=== PATIENT | female | born 1955 | race Caucasian/White ===

== ENCOUNTER → 2017-12-03 14:47 | Outpatient (CLI) | payer MEDICARE, SELFPAY ==
--- NOTE | 2017-12-03 15:09 | CT_ITS ---
STUDY: CT ABDOMEN AND PELVIS WITH CONTRAST REASON FOR EXAM: Female, 62 years old. Abdominal pain, stone versus diverticulitis RADIATION DOSAGE (If Supplied By Facility): CTDIvol = ( 15.90 ) mGy, DLP = ( 1139.75 ) mGycm TECHNIQUE: Transaxial images were obtained from the dome of the diaphragm to the symphysis pubis without oral contrast. 100 ml of Isovue 300 contrast was administered. Sagittal and coronal images were reconstructed. Individualized dose optimization techniques were used for this CT. COMPARISON: None. FINDINGS: The visualized lung bases are unremarkable. The visualized portions of the heart are within normal limits. 1.4 cm posterior right hepatic nodule in the liver. Normal gallbladder and extrahepatic biliary system. Normal spleen. Normal pancreas. Normal bilateral adrenal glands. Normal right kidney. Normal left kidney. Normal visualized stomach. Normal small intestine. Normal colon. The appendix is visualized and appears normal. Calcified abdominal aorta. Normal inferior vena cava. Normal retroperitoneum. Up to 1 cm right iliac node. Normal urinary bladder. Normal abdominal wall. Normal osseous structures. CT/Abdomen/Pelvis WITH Contrast IMPRESSION: Up to 1 cm right iliac node. Hepatic nodule posteriorly. Correlate with ultrasound if needed. Electronically Signed: Winston Clark DO at 18:26 EDT Tel [phone], Service support ,
[2017-12-03 15:32] LABS: AST(SGOT) 16 U/L (15-37); Alanine Aminotransfer ALT/SGPT 27 U/L (13-56); Albumin, Serum 3.6 g/dL (3.2-5.0); Alkaline Phosphatase 151 U/L (45-117); Anion Gap 2 (5-15); BUN 11 mg/dL (7-18); BUN/Creat Ratio 15.2 RATIO (10-20); Calcium,Total 8.9 mg/dL (8.5-10.1); Chloride 104 mmol/L (98-107); Creatinine, Serum 0.72 mg/dL (0.55-1.02); EST Glomerular Filtration Rate 87 mL/min (>60); Est Glom Filt Rate - Afr Amer 105 mL/min (>60); Globulin 3.7 g/dL (2.2-4.2); Glucose 194 mg/dL (74-106); Potassium 4.1 mmol/L (3.5-5.1); Protein, Total 7.3 g/dL (6.4-8.2); Sodium Level 138 mmol/L (136-145)
== END ==
PROVIDERS: Family Provider Internal Medicine; PCP Internal Medicine; Visit Provider Nurse Practitioner Gerontology
DX: R94.31 Abnormal electrocardiogram [ECG] [EKG] (principal)
CPT/HCPCS: 36415; 74177; 80053; Q9967

== ENCOUNTER → 2017-12-07 08:42 | Outpatient (CLI) | payer MEDICARE, SELFPAY ==
--- NOTE | 2017-12-07 08:49 | US_ITS ---
STUDY: ABDOMINAL ULTRASOUND - RIGHT UPPER QUADRANT REASON FOR VISIT: Female, [address] scan. TECHNIQUE: Ultrasound evaluation of the right upper quadrant was performed with real-time and static gupta-scale imaging. TECHNICAL QUALITY: Adequate. COMPARISON: Comparison is made with prior CT scan and abdomen dated December 03, 2017 and prior ultrasound of the abdomen dated September 27, 2012. FINDINGS: Liver: The liver measures 16.6 cm. There is increased echogenicity consistent with fatty infiltration. The bile ducts are within normal limits. There is hepatic color flow. The direction of portal flow is hepatopetal. There is no demonstrated mass lesion. The abnormalities seen on the CT scan is not visualized on the ultrasound. Gallbladder: Normal distended gallbladder. The gallbladder wall measures 1.5 mm. There is a negative sonographic Bourne's sign. There is no pericholecystic fluid. There are no gallstones. Common Bile Duct (C.B.D.): The common bile duct measures 2.8 mm. Pancreas: Normal size of the head, body and tail of the pancreas. There is normal echogenicity of the pancreas. There is no demonstrated pancreatic mass or cyst. Right Kidney: Normal size of the right kidney. The right kidney measures 10.8 cm x 4.5 cm x 4.6 cm. Normal renal cortex. The right cortex measures 1.9 cm. There is no demonstrated renal mass or cyst. Fullness of the right renal pelvis. US/Abdomen Limited IMPRESSION: Fatty infiltration of the liver. No nodular density is seen. Electronically Signed: David Stinson MD at 20:29 EDT Tel [phone], Service support ,
--- NOTE | 2017-12-07 10:17 | ECHOD_ITS ---
Reason For Study: Acute EKG changes Procedure This was a 2D Doppler, Color Flow transthoracic echocardiogram. Exam performed in department. Left Ventricle Normal LV size. Left ventricular systolic function is normal. The estimated ejection fraction is 65 %. Transmitral diastolic flow velocities suggest mild (stage 1) diastolic dysfunction (reversed pattern). No regional wall motion abnormalities noted. Right Ventricle Normal RV size. Normal systolic function. Atria Normal left atrium. Normal right atrium. Bubble contrast study negative for right to left interatrial shunt. Mitral Valve Normal mitral valve. Tricuspid Valve Normal tricuspid valve. Aortic Valve Normal aortic valve. Trisinus/trileaflet aortic valve. Pulmonic Valve Normal pulmonic valve. Great Vessels Normal aortic root. The pulmonary artery is normal size. Normal inferior vena cava. Pericardium/Pleural No pericardial effusion. Medication Performed a rapid injection of agitated mix of 9 cc saline and 1cc air to assess for atrial septal defect. MMode/2D Measurements & Calculations LVIDd: 4.5 cm IVSd: 0.97 cm Ao root diam: 2.5 cm LVIDs: 2.7 cm LVPWd: 0.79 cm LA dimension: 3.7 cm RVDd: 2.5 cm FS: 39.6 % LAV(MOD-bp): 34.7 ml LAV(MOD-bp) Indexed: 18.3 ml/m2 LA A4 area: 14.7 cm2 RA A4 area: 9.6 cm2 LAV(MOD-sp2): 36.8 ml LAV(MOD-sp4): 32.3 ml Doppler Measurements & Calculations MV E max jorge: 76.1 cm/sec Lat Peak E' Jorge: 7.2 cm/sec Med Peak E' Jorge: 5.9 cm/sec MV A max jorge: 123.0 cm/sec E/E' lat: 10.5 E/E' med: 12.8 MV E/A: 0.62 Ao V2 max: 163.7 cm/sec LV V1 max: 136.7 cm/sec PA V2 max: 152.0 cm/sec Ao max P.7 mmHg LV V1 max P.5 mmHg Ao V2 mean: 112.1 cm/sec Ao mean P.5 mmHg Ao V2 VTI: 28.3 cm Interpretation Summary Normal LV size. Left ventricular systolic function is normal. The estimated ejection fraction is 65 %. Transmitral diastolic flow velocities suggest mild (stage 1) diastolic dysfunction (reversed pattern). Bubble contrast study negative for right to left interatrial shunt. Ordering Physician: SANDOR Ward Referring Physician: Aida Nolan Performed By: Soraya Edgar, CESAR, RVT
== END ==
PROVIDERS: Family Provider Internal Medicine; PCP Internal Medicine; Visit Provider Nurse Practitioner Gerontology
DX: R94.31 Abnormal electrocardiogram [ECG] [EKG] (principal); K76.89 Other specified diseases of liver
CPT/HCPCS: 76705; 93306; A4216

== ENCOUNTER → 2018-01-21 09:08 | Outpatient (CLI) | payer MEDICARE, SELFPAY ==
--- NOTE | 2018-01-21 09:11 | NM_ITS ---
CLINICAL: 62-year-old female with reported history of right upper quadrant abdominal pain. RADIONUCLIDE HEPATOBILIARY SCINTIGRAPHY COMPARISON: Abdominal ultrasound report 12/07/2017, CT of the abdomen-pelvis report 12/03/2017 FINDINGS: Following the intravenous administration of 5.1 mCi of 99m Tc Mebrofenin, hepatobiliary images reveal: 1. Relatively prompt and homogeneous radiopharmaceutical concentration is noted by a normal sized liver. No parenchymal defects are identified. 2. Gallbladder activity is identified at 30 minutes post radiopharmaceutical administration. 3. Intestinal tract is not visualized during 60 minutes of sequential image acquisition. Small bowel is defined following the administration of the fatty meal. 4. Washout of the radiopharmaceutical by the hepatic parenchyma appears qualitatively normal. The patient was administered a fatty meal (8 ounces Boost). The post fatty meal ingestion gallbladder ejection fraction calculated at 29 minutes was noted to be 40.0 % (normal greater than 30%). NM/Hepatobilliary Img w/Pharm Int IMPRESSION: 1. NORMAL 99m Tc Mebrofenin hepatobiliary imaging examination with fatty meal ingestion. A. A gallbladder ejection fraction calculated to be greater than 30% following the administration of an ingested fatty meal makes the probability of functional hepatobiliary disease (gallbladder and/or sphincter of Oddi dyskinesia) and/or organic hepatobiliary disease (chronic acalculous cholecystitis and/or cystic duct syndrome) to be low. (Sara and Gregg, J Nucl Med 43: 1603, 2002). Electronically Signed: Levy Ortega DO at 9:59 EDT Tel , Service support ,
== END ==
PROVIDERS: Family Provider Internal Medicine; PCP Internal Medicine; Visit Provider Surgery
DX: R10.11 Right upper quadrant pain (principal)
CPT/HCPCS: 78227; A9537

== ENCOUNTER 2018-01-23 07:17 | Day surgery (SDC) | payer MEDICARE, SELFPAY ==
[2018-01-23] VITALS (7 sets, daily range): BP systolic 88–119; BP diastolic 47–58; PULSE 62–66; RESP 16–18; TEMP 36.3–37.6; O2SAT 94–97; BMI 35.2
[2018-01-23 07:50] LABS: Bedside Glucose 289 mg/dL (70-110)
--- NOTE | 2018-01-23 08:47 | PCM.OPRPT ---
Problem List (1) Right upper quadrant pain Status: Acute (2) Dysphagia, unspecified Status: Acute Qualifiers: Dysphagia type: unspecified Qualified Code(s): R13.10 - Dysphagia, unspecified Report of Operation Date of Procedure: 01/23/18 Pre-Operative Diagnosis: r10.11 right upper quadrant abdominal pain. r13.10 dysphasia unspecified Post-Operative Diagnosis: Same Surgery/Procedure Performed:: 66610 esophagogastroduodenoscopy with biopsy Type of Anesthesia:: MAC Anesthesiologist: Avtar Lacey Description of Procedure: Patient was brought into the endoscopy suite. Back of her throat was sprayed with Cetacaine spray. A bite-block was placed. She was placed in the left lateral decubitus position. She was given graded anesthesia. Scope was inserted in the back of the oropharynx and directed down through the esophagus into the stomach and into the duodenum without difficulty. Operative findings: 1. Duodenum: Normal appearance no mass lesions no ulcerations no signs of bleeding no erythema. 2. Stomach: Minimal prepyloric irritation was identified no ulcers no mass lesions biopsy for H. pylori was obtained. Retroflexion did not show any signs of hiatal hernia. 3. Esophagus: Z line was at 37-38 cm it looked like she had previous signs of esophagitis but nothing that looked active at this time. There is no erythema there was no mass lesions there is no signs of any bleeding. Scope was withdrawn. The rest of the esophagus was entirely normal. She tolerated the procedure well. - Admit VTE Documentation VTE Present on Admission: No VTE Mechan Device Prophylaxis: None VTE Pharm Prophylaxis ordered?: No Reason prophylaxis not ordered:: Treatment Not Indicated
== END 2018-01-23 09:37 | disposition home or self-care (01) ==
LOC: EN 07:17 → AC 07:18
PROVIDERS: Family Provider Internal Medicine; PCP Internal Medicine; Visit Provider Surgery
PROC: 0DJ08ZZ Inspection of Upper Intestinal Tract, Via Natural or Artificial Opening Endoscopic (ICD-10-PCS; CPT 43235; principal; 2018-01-23 08:55)
DX: Z79.4 Long term (current) use of insulin (principal); Z79.82 Long term (current) use of aspirin; Z79.899 Other long term (current) drug therapy; M79.7 Fibromyalgia; L40.50 Arthropathic psoriasis, unspecified; E11.9 Type 2 diabetes mellitus without complications; I10 Essential (primary) hypertension; I25.119 Atherosclerotic heart disease of native coronary artery with unspecified angina pectoris; E78.5 Hyperlipidemia, unspecified; F32.9 Major depressive disorder, single episode, unspecified; Z87.891 Personal history of nicotine dependence
CPT/HCPCS: 43239; 82962; J7120

== ENCOUNTER → 2018-04-18 10:47 | Outpatient (CLI) | payer MEDICARE, SELFPAY | PROVIDERS: Family Provider Internal Medicine; PCP Internal Medicine; Visit Provider Internal Medicine | DX: R51 Headache (principal); H53.9 Unspecified visual disturbance; M54.12 Radiculopathy, cervical region | CPT/HCPCS: 70544; 70553; 72040; A9585 ==

== ENCOUNTER → 2018-04-25 10:22 | Outpatient (CLI) | payer MEDICARE, SELFPAY | LOC: OPBI 10:22 | PROVIDERS: Family Provider Internal Medicine; PCP Internal Medicine; Visit Provider Internal Medicine | DX: R22.2 Localized swelling, mass and lump, trunk (principal); Z12.31 Encounter for screening mammogram for malignant neoplasm of breast | CPT/HCPCS: 71260; 77063; 77067; Q9967 ==

== ENCOUNTER → 2018-05-10 13:41 | Outpatient (CLI) | payer MEDICARE, SELFPAY | LOC: RAD 13:46 | PROVIDERS: Family Provider Internal Medicine; PCP Internal Medicine; Visit Provider Internal Medicine Medical Oncology | DX: D72.829 Elevated white blood cell count, unspecified (principal) | CPT/HCPCS: 77075 ==

== ENCOUNTER → 2018-06-13 13:35 | Outpatient (CLI) | payer MEDICARE, SELFPAY ==
--- NOTE | 2018-06-13 13:40 | CDU_ITS ---
Reason For Study: Vertigo Rt. Velocities/BP Lt. Velocities/BP Prox CCA 116/19.6 cm/sec. Prox CCA 90.9/10.6 cm/sec. Mid CCA 88.8/24.4 cm/sec. Mid CCA 94.4/22.9 cm/sec. Dist CCA 88.8/23.6 cm/sec. Dist CCA 97.9/23.5 cm/sec. Prox ICA 80.3/21.1 cm/sec. Prox ICA 109/28.5 cm/sec. Mid ICA 112/35.4 cm/sec. Mid ICA 108/26.5 cm/sec. Dist ICA 93.5/22.8 cm/sec. Dist ICA 123/30.4 cm/sec. Rt. ICA/CCA = 1.26. Lt. ICA/CCA = 1.30. Prox ECA 133/17.3 cm/sec. Prox ECA 164/14.7 cm/sec. Rt. Vert. 81.5/12.9 cm/sec. Lt. Vert. 82.1/16.4 cm/sec. Right Extracranial There is intimal thickening but no significant atherosclerotic plaque noted in the right common carotid artery. There is heterogeneous, irregular atherosclerotic plaque noted in the right internal carotid artery. There is no significant atherosclerotic plaque noted in the right external carotid artery. Antegrade flow is noted in the right vertebral artery. Left Extracranial There is intimal thickening but no significant atherosclerotic plaque noted in the left common carotid artery. There is heterogeneous, irregular atherosclerotic plaque noted in the left internal carotid artery. There is no significant atherosclerotic plaque noted in the left external carotid artery. Antegrade flow is noted in the left vertebral artery. Procedure Carotid Duplex [id number]. Exam performed in department. Interpretation Summary Mild (<50%) stenosis right extracranial internal carotid. Mild (<50%) stenosis left extracranial internal carotid. Flow within the vertebral arteries is antegrade bilaterally. Ordering Physician: Lucien Isbell Referring Physician: Aida Nolan M.D. Performed By: Lg Larson RVT and Student
== END ==
PROVIDERS: Family Provider Internal Medicine; PCP Internal Medicine; Referring Provider Psychiatry & Neurology Neurology; Visit Provider Psychiatry & Neurology Neurology
DX: R42 Dizziness and giddiness (principal)
CPT/HCPCS: 93880

== ENCOUNTER → 2018-09-26 13:37 | Outpatient (CLI) | payer MEDICARE, SELFPAY ==
[2018-09-12 12:04] VITALS: BMI 35.8
--- NOTE | 2018-09-26 13:49 | CT_ITS ---
STUDY: CT ABDOMEN AND PELVIS WITH CONTRAST REASON FOR EXAM: Female, 63 years old. Generalized abdominal pain. Diverticulitis. RADIATION DOSAGE (If Supplied By Facility): CTDIvol = ( 16.60 ) mGy, DLP = ( 1055.76 ) mGycm TECHNIQUE: Transaxial images were obtained from the dome of the diaphragm to the symphysis pubis with oral contrast. 100 ml of Isovue 300 contrast was administered. Sagittal and coronal images were reconstructed. Individualized dose optimization techniques were used for this CT. COMPARISON: Comparison is made with prior study dated December 03, 2017. FINDINGS: The visualized lung bases are unremarkable. The visualized portions of the heart are within normal limits. There is decreased attenuation of the liver consistent with steatosis. Stable 1.4 cm hypoechoic nodule along the posterior medial aspect of the right lobe of the liver. This most likely represents a small hemangioma. Normal gallbladder and extrahepatic biliary system. Normal spleen. Normal pancreas. Normal bilateral adrenal glands. Normal right kidney. Normal left kidney. Normal visualized stomach. Normal small intestine. Normal colon. The appendix is visualized and appears normal. There is scattered atherosclerotic calcification of the abdominal aorta, without a demonstrated aneurysm. Normal inferior vena cava. There is borderline retroperitoneal lymphadenopathy with enlarged nodes no greater than 10mm in the short axis diameter. There is evidence of a cystocele. There is absence of the uterus consistent with a prior hysterectomy. Normal abdominal wall. Mild dextroscoliosis. CT/Abdomen/Pelvis WITH Contrast IMPRESSION: Fatty in position of the liver. Stable 1.4 cm hypodensity in the posterior medial aspect of the right lobe of the liver suggestive of a small hemangioma. Electronically Signed: David Stinson MD at 15:31 EST , Service support ,
[2018-09-26 14:10] LABS: ALB/GLOB Ratio 0.9 RATIO (0.9-2.4); AST(SGOT) 17 U/L (15-37); Alanine Aminotransfer ALT/SGPT 39 U/L (13-56); Albumin, Serum 3.4 g/dL (3.2-5.0); Alkaline Phosphatase 144 U/L (45-117); Anion Gap 8 (5-15); BUN 15 mg/dL (7-18); BUN/Creat Ratio 22.9 RATIO (10-20); Calcium,Total 8.6 mg/dL (8.5-10.1); Chloride 103 mmol/L (98-107); Creatinine, Serum 0.66 mg/dL (0.55-1.02); EST Glomerular Filtration Rate 97 mL/min (>60); Est Glom Filt Rate - Afr Amer 118 mL/min (>60); Globulin 3.9 g/dL (2.2-4.2); Glucose 269 mg/dL (74-106); Potassium 4.1 mmol/L (3.5-5.1); Protein, Total 7.3 g/dL (6.4-8.2); Sodium Level 134 mmol/L (136-145)
== END ==
PROVIDERS: Family Provider Internal Medicine; PCP Internal Medicine; Referring Provider Nurse Practitioner Gerontology; Visit Provider Nurse Practitioner Gerontology
DX: R10.84 Generalized abdominal pain (principal)
CPT/HCPCS: 36415; 74177; 80053; Q9967

== ENCOUNTER 2020-01-04 16:56 | Emergency (ER) | payer MEDICARE, SELFPAY ==
[2018-09-12 12:04] VITALS: BMI 35.8
[2020-01-04 16:57] VITALS: BP 187/95; PULSE 97; RESP 16; TEMP 36.7; BMI 35.1
--- NOTE | 2020-01-04 17:16 | ED.VISSUMM ---
- ER Visit Summary Date of Service: 01/04/20 Chief Complaint: [Left face and head pain] History of Present Illness: The patient is a 64 F [presents to the emergency department left face and head pain that started initially about 6 days ago. Pain initially started at the tip of her left ear kind of which shoot to the left scalp. Patient did a teleconference appointment with her primary care physician who started her on some Zithromax for suspected ear infection. Patient continues to complain of discomfort and was called in some prednisone as well. 3 days ago patient developed a rash to her scalp and left anterior neck. She is not had a fever. She denies any trauma to her face. She denies sore throat or cough.] Today patient states she started having a little bit of numbness to the left side of her face. Physical Examination: [HEENT-PERRLA, EOMI. Cranial nerves II through XII grossly intact. TMs clear. Mucous membranes moist. No adenopathy. Patient has several small vesicular-like lesions to her left scalp. Patient also has vesicular type lesions to the anterior submandibular region of her neck as well as supraclavicular region of her left neck. Rash is suspicious for herpes zoster. Cardiovascular-regular rate and rhythm without murmur or ectopy Lungs-clear to auscultation, chest wall stable without crepitus or subcu emphysema Abdomen-normoactive bowel sounds, soft, nontender, no rebound or rigidity, no peritoneal signs. Extremities-intact ?4, normal range of motion, normal pulses, atraumatic] Test Results: [None indicated] Emergency Department Course and Treatment: [] Treatment Plan: [We will be treated with either [place] or Percocet for pain as she is not sure which when she can tolerate she will speak with her daughter who would know. Patient also will be started on Famvir. She is to continue with her prednisone. Patient to follow-up with her primary care physician within the next 3 to 5 days.] Disposition: [Discharged home in stable condition] Impression: [Herpes zoster.] This note was generated with [employer] software. It may contain incorrect words, spelling, and punctuation that were not noted in review of the chart prior to signing ED Disposition - Plan for ED Patient: Referrals: Aida Nolan DO [Primary Care Provider] -
--- NOTE | 2020-01-04 17:19 | ED.DEP ---
ED Disposition - Plan for ED Patient: Instructions: ED Shingles Prescriptions: Famciclovir [Famvir] 500 mg PO TID #21 tab Prescription Printed Oxycodone HCl/Acetaminophen [Percocet 5/325] 1 tab PO Q6H PRN PRN 3 Days #12 tab PRN Reason: Pain Prescription Printed Referrals: Aida Nolan DO [Primary Care Provider] - 3-5 Days
== END 2020-01-04 17:37 | disposition home or self-care (01) ==
LOC: ED 17:09
PROVIDERS: Emergency Provider Emergency Medicine; PCP Internal Medicine
DX: B02.9 Zoster without complications (principal)
CPT/HCPCS: 99283

== ENCOUNTER → 2020-08-12 09:15 | Outpatient (CLI) | payer MEDICARE, SELFPAY ==
--- NOTE | 2020-08-12 09:16 | BI_ITS ---
MAMMOGRAPHY - BILATERAL SCREENING REASON FOR EXAM: Female, 65 years old. Routine annual screening examination. PERTINENT HISTORY: Sister with breast cancer. Occasional left breast and left axillary tenderness. TECHNIQUE: Digital bilateral breast cassius (3D mammographic acquisition) in the CC and MLO projections. 2-D mediolateral oblique (MLO) and craniocaudad (CC) views of both breasts were obtained. CAD: Full Field Digital Mammography with Computer Added Detection was performed. COMPARISON: Comparison is made with prior study dated 04/25/2018 and 02/08/2017. FINDINGS: Breast Composition: The breasts are heterogeneously dense, which may obscure small masses. There are no dominant masses or suspicious calcifications. Stable benign appearing bilateral axillary lymph nodes. No other significant abnormalities are identified. There has been no significant change since the prior study. BI/SCREEN MAMM (CAD) W/CASSIUS BILAT IMPRESSION: Stable bilateral screening mammogram. Yearly follow-up mammogram recommended. (A) ASSESSMENT CATEGORY: BIRADS Category 2: Benign. A letter regarding these results will be sent to the patient by the facility within 30 days. Approximately 10% of breast cancers are not detected by mammography. A normal mammogram should not delay biopsy of a clinically suspicious abnormality. [id number] Electronically Signed: David Stinson, at 10:02 EST , Service support ,
== END ==
PROVIDERS: PCP Internal Medicine; Referring Provider Internal Medicine; Visit Provider Internal Medicine
DX: Z12.31 Encounter for screening mammogram for malignant neoplasm of breast (principal)
CPT/HCPCS: 77063; 77067

== ENCOUNTER → 2020-09-10 09:29 | Outpatient (CLI) | payer MEDICARE, SELFPAY ==
--- NOTE | 2020-09-10 09:31 | US_ITS ---
STUDY: ABDOMINAL ULTRASOUND - RIGHT UPPER QUADRANT REASON FOR VISIT: Female, 65 years old RUQ PAIN -- NAUSEA TECHNIQUE: Ultrasound evaluation of the right upper quadrant was performed with real-time and static gupta-scale imaging. TECHNICAL QUALITY: Adequate. COMPARISON: Comparison is made with prior examination dated 12/07/2017. FINDINGS: Liver: The liver is slightly enlarged and measures 19 cm. There is increased echogenicity consistent with fatty infiltration. The bile ducts are within normal limits. There is hepatic color flow. The direction of portal flow is hepatopetal. There is no demonstrated mass lesion. Gallbladder: Normal distended gallbladder. The gallbladder wall measures 2.0 mm. There is a negative sonographic Bourne''s sign. There is no pericholecystic fluid. There are no gallstones. Common Bile Duct (C.B.D.): The common bile duct measures 5.0 mm. Pancreas: Normal size of the head, body and tail of the pancreas. There is increased echogenicity of the pancreas. There is no demonstrated pancreatic mass or cyst. Right Kidney: Normal size of the right kidney. The right kidney measures 10.8 cm x 5.4 cm x 4.3 cm. Normal renal cortex. The right cortex measures 1.3 cm. There is no demonstrated renal mass or cyst. There is no right hydronephrosis. US/Abdomen Limited IMPRESSION: Mild hepatomegaly and fatty infiltration of liver. Electronically Signed: David Stinson, at 10:54 EST , Service support ,
== END ==
PROVIDERS: PCP Internal Medicine; Referring Provider Internal Medicine; Visit Provider Internal Medicine
DX: R10.11 Right upper quadrant pain (principal)
CPT/HCPCS: 76705

== ENCOUNTER 2020-12-09 16:53 | Observation (INO) | payer MEDICARE, SELFPAY ==
[2020-12-09] VITALS (11 sets, daily range): BP systolic 149–220; BP diastolic 57–90; PULSE 69–105; RESP 16–20; TEMP 36.4–36.7; O2SAT 95–98; BMI 37.8; BMI 36.3
--- NOTE | 2020-12-09 17:09 | EKG12_ITS ---
Test Reason : CP Blood Pressure : / mmHG Vent. Rate : 098 BPM Atrial Rate : 098 BPM P-R Int : 158 ms QRS Dur : 082 ms QT Int : 350 ms P-R-T Axes : 057 -30 071 degrees QTc Int : 446 ms Normal sinus rhythm Left axis deviation Pulmonary disease pattern Nonspecific ST abnormality Abnormal ECG Confirmed by TROY RICHEY, MARCI ([id number]), story editor NATASHA PINEDA ([id number]) on 12/13/2020 2:19:16 PM Referred By: JAMEL/CLARI Confirmed By:MARCI SIMMONS MD
--- NOTE | 2020-12-09 17:22 | CT_ITS ---
STUDY: CTA CHEST REASON FOR EXAM: Female, 65 years old. Chest pain RADIATION DOSAGE (If Supplied By Facility): CTDIvol = ( 11.42 ) mGy, DLP = ( 494.83 ) mGycm TECHNIQUE: The examination was performed with the intravenous administration of IV 100mL Isovue-300. Post-processing of the angiographic images was performed, with multiplanar reformation and 3D reconstruction. Individualized dose optimization techniques were used for this CT. COMPARISON: 10/12/2015. FINDINGS: Heart size and pericardium are unremarkable. The aorta is normal in caliber. No aneurysm or dissection. There is no mediastinal mass or adenopathy. There is no hilar or axillary adenopathy. There is no evidence of pulmonary embolus. There is no pleural effusion. There is no pulmonary consolidation. Visualized abdomen is unremarkable. There is no osseous abnormality. CT/CTA Chest W/WO Contrast IMPRESSION: 1. Negative study. No pulmonary embolism or arterial dissection. Electronically Signed: Yesica Ferreira MD at 18:44 EDT Tel , Service support ,
[2020-12-09 17:30] LABS: Absolute Lymphocyte Count 3.33 X10^3/uL (0.83-4.51); Absolute Neutrophil Count 9.5 X10^3/uL (2.0-7.7); Basophil# 0.08 X10^3/uL; Basophil% 0.6 % (0-1); Eosinophil# 0.34 X10^3/uL; Eosinophils% 2.4 % (0-5); Hematocrit 43.9 % (37-47); Hemoglobin 14.4 g/dL (12.0-15.0); Lymphocyte # 3.33 X10^3/ul (4.0); Lymphocyte % 23.6 % (19-41); Mean Corp Hgb Conc 32.8 g/dL (32-36); Mean Corpuscular Hgb 28.4 pg (27.0-32.0); Mean Corpuscular Volume 86.6 fL (81-99); Mean Platelet Vol. 10.1 fl (6.2-12.0); Monocyte% 5.7 % (0-10); NRBC Flagged by Analyzer 0 % (0-5); Neutrophil # 9.49 X10^3/uL (2.7-7.7); Neutrophil % 67.1 % (47-70); Platelet Count 429 K/mm3 (150-450); RBC Distribution Width CV 13.3 % (11.6-14.6); RBC Distribution Width SD 41.9 fl (35.1-43.9); Red Blood Count 5.07 M/mm3 (4.2-5.4); White Blood Count 14.1 K/mm3 (4.4-11.0)
--- NOTE | 2020-12-09 17:30 | RAD_ITS ---
STUDY: X-RAY CHEST REASON FOR EXAM: Female, 65 years old. chest pain TECHNIQUE: Single AP portable view of the chest. COMPARISON: 09/19/2016. FINDINGS: The lungs are clear and expanded. There is no demonstrated pleural abnormality. Normal size heart. Normal mediastinum and kala. Normal visualized pulmonary arteries. Normal visualized aortic arch and descending thoracic aorta. Normal visualized thoracic spine. Normal visualized ribs, clavicles, and shoulders. There is no demonstrated abnormality of the visualized soft tissue structures of the upper abdomen. RAD/Chest 1 View (Portable) IMPRESSION: Normal x-ray examination of the chest. Electronically Signed: Yesica Ferreira MD at 18:07 EDT Tel , Service support ,
--- NOTE | 2020-12-09 17:31 | US_ITS ---
STUDY: VENOUS DOPPLER ULTRASOUND - LEFT LOWER EXTREMITY REASON FOR EXAM: Female, 65 years old. LT ANKLE SWELLING OFF AND ON TECHNIQUE: Ultrasound evaluation of the deep vein system to include chan-scale imaging and compression was performed. Chan-scale imaging and Doppler sonographic evaluation, including duplex spectral analysis and qualitative color flow sonography, was performed. COMPARISON: Routine. FINDINGS: Common femoral, femoral and popliteal veins are patent with no evidence of luminal thrombus. Deep venous structures respond normally to compression and augmentation maneuvers. Normal color Doppler. Visualized calf veins are patent. US/Venous Duplex Imag/Limited/Uni IMPRESSION: Normal venous Doppler ultrasound of the lower extremity. Electronically Signed: Yesica Ferreira MD at 18:16 EDT Tel , Service support ,
[2020-12-09 17:55] LABS: Anion Gap 4 (5-15); BUN 11 mg/dL (7-18); BUN/Creat Ratio 11.8 RATIO (10-20); Calcium,Total 9.6 mg/dL (8.5-10.1); Chloride 99 mmol/L (98-107); Creatinine, Serum 0.93 mg/dL (0.55-1.02); EST Glomerular Filtration Rate 65 mL/min (>60); Est Glom Filt Rate - Afr Amer 78 mL/min (>60); Estimated Creatinine Clearance 48.97 ml/min; Glucose 325 mg/dL (74-106); Potassium 3.9 mmol/L (3.5-5.1); Sodium Level 133 mmol/L (136-145)
[2020-12-09] MEDS: Aspirin 81 MG TAB.CHEW 324 MG PO (17:55)
--- NOTE | 2020-12-09 17:55 | ED.VISSUMM ---
- ER Visit Summary Date of Service: 12/09/20 Chief Complaint: Chest pain and left arm pain History of Present Illness: The patient is a 65 F who presents with chest and left arm pain that began today. Patient states it began rather suddenly. Patient describes the pain as burning and sharp. Patient states the pain is over her left arm, left chest, and left shoulder area. Patient states nothing makes it better and nothing makes it worse. Patient denies any shortness of breath or cough. Patient states she has some palpitations where she feels like her heart is racing but this is chronic for her. Patient denies any fevers or chills. Patient admits to nausea but denies any vomiting. Patient denies any diaphoresis. Patient states the pain does radiate up into her neck as well. Physical Examination: Vital signs are stable. Patient is afebrile. Patient is in no acute distress. Oral mucosa is pink and moist. Neck is supple. Trachea is midline. There is no JVD noted. Heart was regular rate and rhythm. Lungs are clear and equal bilaterally. Abdomen is soft. Bowel sounds are normal. There is no tenderness. There is no rebound or guarding noted. Skin is warm dry. Cranial nerves II through XII are intact. There are no focal motor or sensory deficits noted. Extremities are intact. There is no calf tenderness or edema. Test Results: EKG was obtained. On my interpretation, it showed a normal sinus rhythm with a rate of 98. AR interval, QRS interval, and QTc intervals were all normal. There is left axis deviation at -30. There are no acute ST or T wave changes. This is unchanged compared to previous EKG dated 09/19/2016. CBC shows a leukocytosis of 14.1. Basic metabolic profile showed an elevated glucose of 325. Troponin was normal. Venous duplex of the left lower extremity was obtained. There is no evidence of DVT. Portable 1 view chest x-ray was obtained. On my interpretation, lung liang are clear. There is normal cardiac silhouette. Bony thorax is normal. There is no acute process noted. Radiologist also interpreted the x-ray and agrees. CTA of the chest was obtained. There is no evidence of pulmonary embolism or aortic dissection. This was interpreted by the radiologist and reviewed by myself. Emergency Department Course and Treatment: Patient was given aspirin and sublingual nitroglycerin here. Patient states her pain improved somewhat with nitroglycerin. Case was discussed with the hospitalist. Patient has a HEART score of 4. Patient will be admitted to the hospital for observation. Patient understood and was agreeable with the plan. All questions were answered. Disposition: Admit to hospital Impression: 1. Chest pain This note was generated with [employer] dictation software. It may contain incorrect words, spelling, and punctuation that were not noted in review of the chart prior to signing ED Disposition - Plan for ED Patient: Disposition: Acute Care Hospital [facility]
[2020-12-09] MEDS: Nitroglycerin SL (ED/IMG/CATH) 0.4 MG TABLET SL (17:57)
--- NOTE | 2020-12-09 18:07 | ED.RN ---
pt reports heart feels like it is racing after nitro. hrup to 112 from 70's
--- NOTE | 2020-12-09 18:37 | PCM.HP.STD ---
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) Neutrophilia (Chronic) Fibromyalgia (Chronic) Psoriatic arthritis (Chronic) IBS (irritable bowel syndrome) (Chronic) Type II diabetes mellitus (Chronic) PSVT (paroxysmal supraventricular tachycardia) (Chronic) HLD (hyperlipidemia) (Chronic) Vertigo (Chronic) Medical History: Medical History (Last Updated 09/12/18 @ 11:29 by Pat Fuchs) 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) I25.10 Fibromyalgia (Chronic) Psoriatic arthritis (Chronic) L40.50 IBS (irritable bowel syndrome) (Chronic) Type II diabetes mellitus (Chronic) E11.9 Chest pain (Resolved) R07.9 Angina pectoris (Resolved) I20.9 Abnormal nuclear stress test (Resolved) PSVT (paroxysmal supraventricular tachycardia) (Chronic) I47.1 HLD (hyperlipidemia) (Chronic) E78.5 Vertigo (Chronic) R42 Headache (Resolved) R51 Tingling (Resolved) R20.2 Essential hypertension I10 CAD (coronary artery disease) (Inactive) I25.10 Hypertension (Inactive) I10 Allergies adhesive tape Allergy (Verified 12/09/20 16:55) Rash cefaclor [From Ceclor] Allergy (Verified 12/09/20 16:55) Unknown liraglutide [From Victoza] Allergy (Verified 12/09/20 16:55) Upset Stomach morphine Allergy (Verified 12/09/20 16:55) my body felt like it was on fire; vomiting nalbuphine HCl [From Nubain] Allergy (Verified 12/09/20 16:55) lungs froze up omeprazole [From Prilosec] Allergy (Verified 12/09/20 16:55) can't remember omeprazole magnesium [From Prilosec] Allergy (Verified 12/09/20 16:55) Unknown Penicillins Allergy (Verified 12/09/20 16:55) tightness in throat sulfamethoxazole [From Bactrim] Allergy (Verified 12/09/20 16:55) Unknown trimethoprim [From Bactrim] Allergy (Verified 04/08/21 16:55) Unknown codeine Adverse Reaction (Verified 12/09/20 16:55) hallucinations Home Medications: Ambulatory Orders Medication Instructions Recorded duloxetine 60 mg capsule,delayed 60 mg PO QDAY 01/15/18 release esomeprazole magnesium 40 mg 40 mg PO QDAY 01/15/18 capsule,delayed release insulin aspart U-100 100 unit/mL unit SC TIDCM ml 08/01/18 (3 mL) subcutaneous pen insulin degludec 200 unit/mL (3 120 unit SC QHS ml 08/01/18 mL) subcutaneous pen metoprolol tartrate 75 mg tablet 75 mg PO BID #60 tab 09/12/18 ramipril 5 mg capsule 5 mg PO DAILY #30 cap 09/12/18 Surgical History: Surgical History (Last Updated 09/12/18 @ 11:29 by Pat Fuchs) H/O: hysterectomy Z90.710 History of esophagogastroduodenoscopy (EGD) Onset Date: ~01/2018 Z98.890 History of melanoma excision Z98.890, Z85.820 Hx of dilation and curettage Z98.890 Hx of melanoma excision (Inactive) Z98.890, Z85.820 Surgical History: no surgical history Psychiatric History: No pertinent psych hx 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 Smoking Status: Never smoker - *Family History Maternal Family History: Family History (Last Updated 09/12/18 @ 11:31 by Pat Fuchs) Father Heart disease CVA (cerebral vascular accident) Sister Breast cancer Heart disease Mother Kidney disease Diabetes CHF (congestive heart failure) Sister Diabetes Kidney disease History Items: Heart Disease, Stroke Paternal Family History: Family History (Last Updated 09/12/18 @ 11:31 by Pat Fuchs) Father Heart disease CVA (cerebral vascular accident) Sister Breast cancer Heart disease Mother Kidney disease Diabetes CHF (congestive heart failure) Sister Diabetes Kidney disease History Items: Heart Disease, Stroke, No pertinent history - Physical Exam Vitals/I&O's: Vital Signs Temp Pulse Resp BP Pulse Ox 98.0 F 91 17 149/79 H 97 12/09/20 17:00 12/09/20 18:06 12/09/20 18:06 12/09/20 18:06 12/09/20 18:06 Oxygen Delivery Method Room Air Weight: 206 lb 9.17 oz Body Mass Index (BMI) 37.8 Finger Stick Blood Glucose 319 Laboratory Results 12/09/20 17:10: WBC 14.1 H, RBC 5.07, Hgb 14.4, Hct 43.9, MCV 86.6, MCH 28.4, MCHC 32.8, RDW Std Deviation 41.9, RDW Coeff of Haleigh 13.3, Plt Count 429, MPV 10.1, Immature Gran % (Auto) 0.600, Neut % (Auto) 67.1, Lymph % (Auto) 23.6, [place] % (Auto) 5.7, Eos % (Auto) 2.4, Baso % (Auto) 0.6, Absolute Neuts (auto) 9.5 H, Absolute Lymphs (auto) 3.33, Nucleated RBC % 0 12/09/20 17:10: Sodium 133 L, Potassium 3.9, Chloride 99, Carbon Dioxide 30.0, Anion Gap 4 L, BUN 11, Creatinine 0.93, Estim Creat Clear Calc 48.97, Est GFR (MDRD) Af Amer 78, Est GFR (MDRD) Non-Af 65, BUN/Creatinine Ratio 11.8, Glucose 325 H, Calcium 9.6, Troponin I < 0.015 Current Medications Nitroglycerin (Nitroglycerin Sl (Ed/Img/Cath) 0.4 Mg Tablet) 0.4 mg SL Q5M PRN PRN Reason: Chest pain Last Admin: 12/09/20 17:57 Dose: 0.4 mg Documented by: Assessment/Plan All Active Problems (Last Updated 09/12/18 @ 11:29 by Pat Fuchs) Excessive daytime sleepiness (Acute) Right upper quadrant pain (Acute) Dysphagia, unspecified (Acute) Chest pain (Resolved) Angina pectoris (Resolved) Abnormal nuclear stress test (Resolved) Headache (Resolved) Tingling (Resolved)
--- NOTE | 2020-12-09 18:56 | PCM.HP.STD ---
Problem List (1) Chest pain Status: Acute Qualifiers: Chest pain type: unspecified Qualified Code(s): R07.9 - Chest pain, unspecified (2) HTN (hypertension) Status: Chronic Qualifiers: Hypertension type: essential hypertension Qualified Code(s): I10 - Essential (primary) hypertension (3) Obesity (BMI 30-39.9) Status: Chronic (4) Atherosclerotic heart disease of [place] coronary artery without angina pectoris Status: Chronic Qualifiers: [place] vs. transplanted heart: [place] heart Qualified Code(s): I25.10 - Atherosclerotic heart disease of [place] coronary artery without angina pectoris (5) Fibromyalgia Status: Chronic (6) Psoriatic arthritis Status: Chronic (7) IBS (irritable bowel syndrome) Status: Chronic Qualifiers: Irritable bowel syndrome type: unspecified Qualified Code(s): K58.9 - Irritable bowel syndrome without diarrhea (8) Type II diabetes mellitus Status: Chronic Qualifiers: Diabetes mellitus terminal operator insulin use: with custodial use Diabetes mellitus complication status: with other specified complication Qualified Code(s): E11.69 - Type 2 diabetes mellitus with other specified complication; Z79.4 - manager terminal (current) use of insulin (9) HLD (hyperlipidemia) Status: Chronic Qualifiers: Hyperlipidemia type: unspecified Qualified Code(s): E78.5 - Hyperlipidemia, unspecified History of Present Illness Date of Admission: 12/09/20 Chief Complaint: Chest pain The patient is a 65 y/o F w/ PMHx: Obesity, HTN, HLD, IBS, Psoriatic Arthritis, CAD, Diabetes mellitus type II, Hx PSVT, Fibromyalgia, Anxiety and Depression who presents to the [facility] ED on 12/09/20 with history of onset chest discomfort with radiation to the left upper extremity as well as into the left side of the neck and left shoulder which began on day of ED presentation, suddenly, described as sharp and burning with nothing causing to worsen or improve with no associated dyspnea or diaphoresis but she does note some associated palpitations as well as mild nausea however she does have racing sensations intermittently chronically. She denies any recent fever or chills. She does note that this has been ongoing through the day and has been waxing and waning. She notes that initially at its worst was 8 out of 10 in severity, currently 5-6 out of 10 in severity. Work-up in the ED included T 98, heart rate 104, BP initially 220/90, respiratory rate 20, 98% on room air with improvement to heart rate 91, BP 149/79, CBC with WC 14.1, hemoglobin 14.4, platelet 429 with left shift, BMP with sodium 133, BUN/creatinine 11/0.93, glucose 325, troponin less than 0.015, left lower extremity duplex ultrasound with no obvious evidence of DVT, chest x-rays no acute cardiopulmonary findings, EKG was sinus rhythm with no acute evidence of ischemia, CTPA no evidence of pulmonary emboli or arterial dissection. Past Medical History Past Medical History (Chronic Problems): Chronic Problems (Last Updated 09/12/18 @ 11:29 by Pat Fuchs) HTN (hypertension) (Chronic) Obesity (BMI 30-39.9) (Chronic) Atherosclerotic heart disease of [place] coronary artery without angina pectoris (Chronic) Neutrophilia (Chronic) Fibromyalgia (Chronic) Psoriatic arthritis (Chronic) IBS (irritable bowel syndrome) (Chronic) Type II diabetes mellitus (Chronic) PSVT (paroxysmal supraventricular tachycardia) (Chronic) HLD (hyperlipidemia) (Chronic) Vertigo (Chronic) Medical History: Medical History (Last Updated 09/12/18 @ 11:29 by Pat Fuchs) Atherosclerotic heart disease of [place] coronary artery without angina pectoris (Chronic) I25.10 Fibromyalgia (Chronic) Psoriatic arthritis (Chronic) L40.50 IBS (irritable bowel syndrome) (Chronic) Type II diabetes mellitus (Chronic) E11.9 Chest pain (Resolved) R07.9 Angina pectoris (Resolved) I20.9 Abnormal nuclear stress test (Resolved) PSVT (paroxysmal supraventricular tachycardia) (Chronic) I47.1 HLD (hyperlipidemia) (Chronic) E78.5 Vertigo (Chronic) R42 Headache (Resolved) R51 Tingling (Resolved) R20.2 Essential hypertension I10 CAD (coronary artery disease) (Inactive) I25.10 Hypertension (Inactive) I10 Allergies adhesive tape Allergy (Verified 12/09/20 16:55) Rash cefaclor [From Ceclor] Allergy (Verified 12/09/20 16:55) Unknown liraglutide [From Victoza] Allergy (Verified 12/09/20 16:55) Upset Stomach morphine Allergy (Verified 12/09/20 16:55) my body felt like it was on fire; vomiting nalbuphine HCl [From Nubain] Allergy (Verified 12/09/20 16:55) lungs froze up omeprazole [From Prilosec] Allergy (Verified 12/09/20 16:55) can't remember omeprazole magnesium [From Prilosec] Allergy (Verified 12/09/20 16:55) Unknown Penicillins Allergy (Verified 12/09/20 16:55) tightness in throat sulfamethoxazole [From Bactrim] Allergy (Verified 12/09/20 16:55) Unknown trimethoprim [From Bactrim] Allergy (Verified 12/09/20 16:55) Unknown codeine Adverse Reaction (Verified 12/09/20 16:55) hallucinations Home Medications: Ambulatory Orders Medication Instructions Recorded duloxetine 60 mg capsule,delayed 60 mg PO QDAY 01/15/18 release esomeprazole magnesium 40 mg 40 mg PO QDAY 01/15/18 capsule,delayed release insulin aspart U-100 100 unit/mL unit SC TIDCM ml 08/01/18 (3 mL) subcutaneous pen insulin degludec 200 unit/mL (3 120 unit SC QHS ml 08/01/18 mL) subcutaneous pen metoprolol tartrate 75 mg tablet 75 mg PO BID #60 tab 09/12/18 ramipril 5 mg capsule 5 mg PO DAILY #30 cap 09/12/18 Surgical History: Surgical History (Last Updated 09/12/18 @ 11:29 by Pat Fuchs) H/O: hysterectomy Z90.710 History of esophagogastroduodenoscopy (EGD) Onset Date: ~01/2018 Z98.890 History of melanoma excision Z98.890, Z85.820 Hx of dilation and curettage Z98.890 Hx of melanoma excision (Inactive) Z98.890, Z85.820 Surgical History: - - D&C, hysterectomy, melanoma resection. Psychiatric History: Anxiety, Depression SHAREPOINT ENGINEER History: No pertinent SHAREPOINT ENGINEER history Lives: Spouse/ Significant Other Smoking Status: Former smoker - Patient quit cigarette tobacco usage approximately 10-15 years prior with prior to this a 30-year pack year history smoking approximately 1/2 to 1 pack/day. Tobacco Use: Non-smoker Alcohol: None Drugs: None - *Family History Maternal Family History: Family History (Last Updated 09/12/18 @ 11:31 by Pat Nolt) Father Heart disease CVA (cerebral vascular accident) Sister Breast cancer Heart disease Mother Kidney disease Diabetes CHF (congestive heart failure) Sister Diabetes Kidney disease History Items: High Cholesterol, Heart Disease, Hypertension, Renal Disease, Stroke Paternal Family History: Family History (Last Updated 09/12/18 @ 11:31 by Pat Fuchs) Father Heart disease CVA (cerebral vascular accident) Sister Breast cancer Heart disease Mother Kidney disease Diabetes CHF (congestive heart failure) Sister Diabetes Kidney disease History Items: High Cholesterol, Heart Disease, Hypertension, Stroke Review of Systems Constitutional: Reports: Fatigue. Denies: Anorexia, Chills, Fever, Malaise, Weakness, Weight Change HEENT: Denies: Head Aches, Sinus Congestion, Sinus Drainage Cardiovascular: Reports: Chest Pain. Denies: Light Headedness, Orthopnea, Palpitations, Syncope Respiratory: Denies: Cough, Shortness of Breath, Shortness of breath at rest, Shortness of breath upon exertion, Sputum production Gastrointestinal: Reports: Nausea. Denies: Abdominal Pain, Constipation, Diarrhea, Vomiting Genitourinary: Denies: Dysuria Musculoskeletal: Reports: Joint Pain. Denies: Joint Tenderness Skin: Denies: Rash, Wounds Neurological: Denies: Numbness, Tingling, Focal weakness Psychiatric: Reports: Anxiety, Depression. Denies: Homicidal Ideations, Suicidal Ideations Hematologic/ Lymphatic: Denies: Easy Bruising, Easy Bleeding VTE Information - Inpt Only VTE Present on Admission: No VTE Mechan Device Prophylaxis: SCD's VTE Pharm Prophylaxis ordered?: Yes Subjective: Patient seated upright in ED bed, mildly fatigued appearance, notes ongoing discomfort rated currently 6 out of 10 but does appear comfortable. Objective: Physical Examination: General: awake, alert, oriented x 3 and cooperative, seated upright in the ED bed in no apparent distress but currently rates her discomfort 6 out of 10. Skin: normal color, turgor, no icterus, cyanosis. HEENT: AT/NC, EOMI, PERRLA, mildly dry MM, no carotid bruits or JVD noted. Lungs: Mildly diminished breath sounds bases, moderate effort, no rales, ronchi or wheezing. Heart: Regular rate and rhythm; no gallop, rub audible. Abdomen: soft, obese, NTTP, ND, normal BS, no HSM. Extremities: no cyanosis, clubbing, or edema. Neurological: patient awake, alert, oriented as noted; cognitive function intact; pupils equally reactive to light and accomodation; cranial nerves II-XII grossly normal, moving all 4 extremities, no focal deficits, strength mildly global decrease secondary to acute complaints. Psychiatric: affect appears mildly fatigued otherwise normal, no acute evidence of depressive or anxiety feelings. - Physical Exam Vitals/I&O's: Vital Signs Temp Pulse Resp BP Pulse Ox 98.0 F 91 17 149/79 H 97 12/09/20 17:00 12/09/20 18:06 12/09/20 18:06 12/09/20 18:06 12/09/20 18:06 Oxygen Delivery Method Room Air Weight: 206 lb 9.17 oz Body Mass Index (BMI) 37.8 Finger Stick Blood Glucose 319 Laboratory Results 12/09/20 17:10: WBC 14.1 H, RBC 5.07, Hgb 14.4, Hct 43.9, MCV 86.6, MCH 28.4, MCHC 32.8, RDW Std Deviation 41.9, RDW Coeff of Haleigh 13.3, Plt Count 429, MPV 10.1, Immature Gran % (Auto) 0.600, Neut % (Auto) 67.1, Lymph % (Auto) 23.6, [place] % (Auto) 5.7, Eos % (Auto) 2.4, Baso % (Auto) 0.6, Absolute Neuts (auto) 9.5 H, Absolute Lymphs (auto) 3.33, Nucleated RBC % 0 12/09/20 17:10: Sodium 133 L, Potassium 3.9, Chloride 99, Carbon Dioxide 30.0, Anion Gap 4 L, BUN 11, Creatinine 0.93, Estim Creat Clear Calc 48.97, Est GFR (MDRD) Af Amer 78, Est GFR (MDRD) Non-Af 65, BUN/Creatinine Ratio 11.8, Glucose 325 H, Calcium 9.6, Troponin I < 0.015 Current Medications Nitroglycerin (Nitroglycerin Sl (Ed/Img/Cath) 0.4 Mg Tablet) 0.4 mg SL Q5M PRN PRN Reason: Chest pain Last Admin: 12/09/20 17:57 Dose: 0.4 mg Documented by: Assessment/Plan All Active Problems (Last Updated 09/12/18 @ 11:29 by Pat Nolt) Excessive daytime sleepiness (Acute) Right upper quadrant pain (Acute) Dysphagia, unspecified (Acute) Chest pain (Acute) Angina pectoris (Resolved) Abnormal nuclear stress test (Resolved) Headache (Resolved) Tingling (Resolved) The patient is a 65 y/o F w/ PMHx: Obesity, HTN, HLD, IBS, Psoriatic Arthritis, CAD, Diabetes mellitus type II, Hx PSVT, Fibromyalgia, Anxiety and Depression who presents to the [facility] ED on 12/09/20 with history of onset chest discomfort with radiation to the left upper extremity as well as into the left side of the neck and left shoulder which began on day of ED presentation, suddenly, described as sharp and burning with nothing causing to worsen or improve with no associated dyspnea or diaphoresis but she does note some associated palpitations as well as mild nausea however she does have racing sensations intermittently chronically. 1. Chest Pain: EKG in ED sinus rhythm with no acute evidence of ischemia, CXR w/ no acute cardiopulmonary findings, initial trop normal x1, CTPA with no evidence of acute PE or dissection or any other acute cardiopulmonary findings. Will admit to PCU, place on a monitored bed to assure no acute myocardial infarction with serial cardiac enzymes and EKGs. If serial cardiac enzymes and repeat EKGs remain unremarkable will pursue a.m. cardiac stress testing. Magnesium level requested. FLP in AM. ASA, NG. 2. Non-obstructive CAD: Patient with history of nonobstructive CAD, last cardiac catheterization noted 10/13/2015 secondary to chest discomfort and abnormal stress test at that time with nonobstructive coronaries with recommended continued medical management. Will continue aspirin, metoprolol, ramipril, not on statin therapy with FLP in a.m. as noted. 3. Leukocytosis, unclear etiology: Patient with mildly elevated WC with left shift, possibly reactive, will judiciously hydrate as noted, repeat CBC in AM. 4. Diabetes mellitus type II: Hold oral home regimen, HgbA1c requested given notable BS elevation 325 upon presentation, will continue home insulin regimen, ADA diet, accu checks w/ ISS. 5. Anxiety and depression: We will continue patient home duloxetine regimen. 6. Hypertension: Continue home regimen including metoprolol, ramipril, possibly additional medications may be necessary given admission BP presentation but will continue to monitor given improvement and add if necessary, PRN hydralazine. 7. Psoriatic arthritis: Not on any regimen specifically per current list, encourage continued outpatient follow-up with her data assistant. 8. Obesity: Weight loss and lifestyle changes encouraged. 9. Hyperlipidemia: Not on statin, FLP in AM. 10. GERD: We will continue patient on PPI. 11. History of tobacco use: Patient with a [id number] history, encourage continued tobacco cessation. 12. DVT prophylaxis: SCDs, Lovenox. OBSV E&M: 18488 Initial observation care L3
--- NOTE | 2020-12-09 19:56 | EKG12_ITS ---
Test Reason : CP ADMIT Blood Pressure : / mmHG Vent. Rate : 066 BPM Atrial Rate : 066 BPM P-R Int : 166 ms QRS Dur : 080 ms QT Int : 400 ms P-R-T Axes : 034 -26 049 degrees QTc Int : 419 ms Normal sinus rhythm Septal infarct , age undetermined Abnormal ECG When compared with ECG of 09-DEC-2020 16:57, MANUAL COMPARISON REQUIRED, DATA IS UNCONFIRMED Confirmed by TROY RICHEY, MARCI ([id number]), subeditor KATIE ABRAHAM ([id number]) on 12/15/2020 1:28:21 PM Referred By: DR DIMAS Confirmed By:MARCI SIMMONS MD
[2020-12-09 20:16] LABS: Magnesium 2.1 mg/dL (1.6-2.6)
[2020-12-09] MEDS: Acetaminophen 325 MG Tablet 650 MG PO (22:09)
[2020-12-09] MEDS: Metoprolol Tartrate 50 MG Tablet 75 MG PO (22:10)
[2020-12-09 22:25] LABS: Bedside Glucose 228 mg/dL (70-110)
[2020-12-09] MEDS: HYDROmorphone 0.5 MG/0.5 ML SYRINGE IV (23:10)
[2020-12-09] MEDS: 0.9% Saline Lock 10 ML Syringe IV (23:10)
[2020-12-10] MEDS: 0.9% Normal Saline 1,000 ML 100 ML IV (00:44)
[2020-12-10 03:00] VITALS: PULSE 59
[2020-12-10 04:00] VITALS: BP 122/62; PULSE 59; RESP 16; TEMP 36.6; O2SAT 95
--- NOTE | 2020-12-10 05:55 | EKG12_ITS ---
Test Reason : AM EKG Blood Pressure : / mmHG Vent. Rate : 056 BPM Atrial Rate : 056 BPM P-R Int : 188 ms QRS Dur : 082 ms QT Int : 438 ms P-R-T Axes : 049 -22 059 degrees QTc Int : 422 ms Sinus bradycardia Septal infarct , age undetermined Abnormal ECG When compared with ECG of 09-DEC-2020 20:17, MANUAL COMPARISON REQUIRED, DATA IS UNCONFIRMED Confirmed by TROY RICHEY, MARCI ([id number]), newspaper managing editor KATIE ABRAHAM ([id number]) on 12/15/2020 1:11:01 PM Referred By: DR DIMAS Confirmed By:MARCI SIMMONS MD
[2020-12-10 06:20] LABS: Absolute Lymphocyte Count 2.92 X10^3/uL (0.83-4.51); Absolute Neutrophil Count 7.1 X10^3/uL (2.0-7.7); Basophil# 0.08 X10^3/uL; Basophil% 0.7 % (0-1); Eosinophil# 0.54 X10^3/uL; Eosinophils% 4.7 % (0-5); Hemoglobin 14.1 g/dL (12.0-15.0); Lymphocyte # 2.92 X10^3/ul (4.0); Lymphocyte % 25.7 % (19-41); Mean Corp Hgb Conc 31.3 g/dL (32-36); Mean Corpuscular Hgb 28.2 pg (27.0-32.0); Mean Platelet Vol. 10.2 fl (6.2-12.0); Monocyte# 0.71 X10^3/uL; Monocyte% 6.2 % (0-10); NRBC Flagged by Analyzer 0 % (0-5); Neutrophil # 7.05 X10^3/uL (2.7-7.7); Platelet Count 398 K/mm3 (150-450); RBC Distribution Width CV 13.4 % (11.6-14.6); RBC Distribution Width SD 44.1 fl (35.1-43.9); White Blood Count 11.4 K/mm3 (4.4-11.0)
[2020-12-10 06:47] VITALS: BP 163/85; PULSE 64; RESP 18; TEMP 36.4; O2SAT 96
[2020-12-10] MEDS: Aspirin E.C. 81 MG Tablet PO (06:53)
[2020-12-10] MEDS: Ramipril 5 MG Capsule PO (06:54)
[2020-12-10 06:58] LABS: ALB/GLOB Ratio 0.9 RATIO (0.9-2.4); AST(SGOT) 23 U/L (15-37); Alanine Aminotransfer ALT/SGPT 28 U/L (13-56); Albumin, Serum 3.2 g/dL (3.2-5.0); Alkaline Phosphatase 145 U/L (45-117); Anion Gap 3 (5-15); BUN 11 mg/dL (7-18); BUN/Creat Ratio 14.9 RATIO (10-20); Calcium,Total 9.1 mg/dL (8.5-10.1); Chloride 103 mmol/L (98-107); Cholesterol 297 mg/dL (200); Creatinine, Serum 0.74 mg/dL (0.55-1.02); EST Glomerular Filtration Rate 84 mL/min (>60); Est Glom Filt Rate - Afr Amer 102 mL/min (>60); Estimated Creatinine Clearance 61.54 ml/min; Globulin 3.7 g/dL (2.2-4.2); Glucose 238 mg/dL (74-106); High Density Lipoprotein 31 mg/dL; Potassium 4.3 mmol/L (3.5-5.1); Protein, Total 6.9 g/dL (6.4-8.2); Sodium Level 138 mmol/L (136-145); Triglycerides 232 mg/dL; Very Low Density Lipoprotein 46 mg/dL (5-40)
[2020-12-10] MEDS: HYDROmorphone 0.5 MG/0.5 ML SYRINGE IV (06:58)
[2020-12-10 07:00] VITALS: PULSE 63
[2020-12-10 07:01] LABS: Bedside Glucose 245 mg/dL (70-110)
[2020-12-10 08:39] LABS: Hemoglobin A1c 9.6 % (3.8-5.6)
[2020-12-10] MEDS: Ondansetron 4 MG/2 ML Vial IV (10:23)
[2020-12-10] MEDS: 0.9% Saline Lock 10 ML Syringe IV (10:23)
[2020-12-10 10:30] VITALS: BP 148/57; PULSE 69; RESP 18; TEMP 36.7; O2SAT 98
[2020-12-10] MEDS: Pantoprazole Sodium 40 MG Tablet PO (10:30)
[2020-12-10] MEDS: Metoprolol Tartrate 50 MG Tablet 75 MG PO (10:30)
[2020-12-10] MEDS: DULoxetine Hcl 60 MG Capsule PO (10:30)
--- NOTE | 2020-12-10 11:03 | STRESSREP ---
Stress Test Report Date: 12-10-2020 Procedure: Pharmacologic stress nuclear imaging study Indications: Chest pain; PSVT Consent: Per the patient Procedure: The patient underwent pharmacologic (Regadenoson 0.4mg ) evaluation with a peak heart rate of 106 beats per minute (67%predicted maximal heart rate) and a peak blood pressure of 150/78 mmHg. The baseline ECG demonstrated sinus rhythm. The peak pharmacologic ECG demonstrated no obvious ECG changes. There were no cardiac dysrhythmias pretest, during pharmacologic infusion, or recovery. There was no complaint of chest discomfort during pharmacologic infusion or recovery. The examination was discontinued secondary to completion of protocol. Impression: 1. Pharmacologic (Regadenoson) evaluation 2. Peak pharmacologic ECG with no obvious ECG changes. 3. There were no cardiac dysrhythmias pretest, during pharmacologic infusion, or recovery. 4. Nuclear images pending Myocardial perfusion imaging study: Technique: The patient was injected with 11.0 millicuries of technetium 99m Cardiolite and subsequently rest SPECT Cardiolite nuclear imaging was obtained in the horizontal long, vertical long, and short axis views. The patient underwent pharmacologic (Regadenoson) evaluation with a peak heart rate of 106 beats per minute (67% percent predicted maximal heart rate) and a peak blood pressure of 150/78 mmHg. The patient was injected with 33.9 millicuries of technetium 99m Cardiolite and subsequently stress SPECT Cardiolite nuclear imaging was obtained in the horizontal long, vertical long, and short axis views. A gated Cardiolite study at peak stress was obtained. Interpretation: Rest and stress SPECT Cardiolite nuclear imaging status post realignment, normalization, and attenuation correction demonstrate relative uniform tracer uptake and myocardial perfusion appearing within normal limits. There is end systolic thickening and brightening. The gated Cardiolite study demonstrates myocardial thickening and inward wall motion. The reported LVEF is 80%. Impression: 1. Rest and stress SPECT Cardiolite nuclear imaging demonstrate relative uniform tracer uptake and myocardial perfusion appearing within normal limits. 2. The gated Cardiolite study reports an LVEF of 80%. This note was generated with WriteLatex software. It may contain incorrect words, spelling, and punctuation that were not noted in checking the note before signing.
[2020-12-10] MEDS: Insulin Lispro 100 UNIT/ML INSULN.PEN SC (11:12)
[2020-12-10] MEDS: Acetaminophen 325 MG Tablet 650 MG PO (11:15)
[2020-12-10 11:31] LABS: Bedside Glucose 235 mg/dL (70-110)
--- NOTE | 2020-12-10 12:34 | DCINST_ITS ---
- Discharge Diagnoses Current Active Problems: Current Active and Chronic Problems (Last Updated 09/12/18 @ 11:29 by Pat Fuchs) HTN (hypertension) (Chronic) Obesity (BMI 30-39.9) (Chronic) Atherosclerotic heart disease of [place] coronary artery without angina pectoris (Chronic) Fibromyalgia (Chronic) Psoriatic arthritis (Chronic) IBS (irritable bowel syndrome) (Chronic) Type II diabetes mellitus (Chronic) Chest pain (Acute) HLD (hyperlipidemia) (Chronic) You will use the following diet at home:: Calorie/Carbohydrate Controlled (specify 1200, 1400, etc) - 1800 armando Your food should be the consistency of: Regular Your liquids should be the consistency of: Regular/Thin Discharge Activity: Return to Normal Activity Allergies/Adverse Reactions: Allergies adhesive tape Allergy (Verified 12/09/20 20:10) Rash cefaclor [From Ceclor] Allergy (Verified 12/09/20 20:10) Unknown liraglutide [From Victoza] Allergy (Verified 12/09/20 20:10) Upset Stomach morphine Allergy (Verified 12/09/20 20:10) my body felt like it was on fire; vomiting nalbuphine HCl [From Nubain] Allergy (Verified 12/09/20 20:10) lungs froze up omeprazole [From Prilosec] Allergy (Verified 12/09/20 20:10) can't remember omeprazole magnesium [From Prilosec] Allergy (Verified 12/09/20 20:10) Unknown Penicillins Allergy (Verified 12/09/20 20:10) tightness in throat sulfamethoxazole [From Bactrim] Allergy (Verified 12/09/20 20:10) Unknown trimethoprim [From Bactrim] Allergy (Verified 12/09/20 20:10) Unknown codeine Adverse Reaction (Verified 12/09/20 20:10) hallucinations Medications to take at Discharge duloxetine 60 mg capsule,delayed release 60 mg PO QDAY 01/15/18 metoprolol tartrate 75 mg tablet 75 mg PO BID #60 tab 09/12/18 ramipril 5 mg capsule 5 mg PO DAILY #30 cap 09/12/18 Insulin Aspart [Novolog Flexpen] 12/09/20 Insulin Degludec [Tresiba Flextouch U-200] 100 units SC DAILY 12/09/20 Pantoprazole Sodium [Protonix] 1 tablet PO DAILY 12/09/20 Primary Care Physician: Aida Nolan DO [Primary Care Provider] - Please follow up with your Primary Care Physician in: in one week Test Results: Test results from this visit will be discussed in further detail at your follow- up appointment, if applicable.
--- NOTE | 2020-12-10 18:42 | DS.PCM_ITS ---
Discharge Date and Diagnosis - Problem List Patient Problems: Active and Suspected Problems (Last Updated 09/12/18 @ 11:29 by Pat Fuchs) Chest pain (Acute) Date of Admission: 12/09/20 Date of Discharge: 12/10/20 - Primary Discharge Diagnosis Acute Problems: Active Problems (Last Updated 09/12/18 @ 11:29 by Pat Fuchs) #1 musculoskeletal chest pain #2 coronary artery disease #3 essential hypertension #4 hyperlipidemia #5 type 2 diabetes-under poor control - Secondary Discharge Diagnosis Chronic Problems: Chronic Problems (Last Updated 09/12/18 @ 11:29 by Pat Fuchs) HTN (hypertension) (Chronic) Obesity (BMI 30-39.9) (Chronic) Atherosclerotic heart disease of [place] coronary artery without angina pectoris (Chronic) Neutrophilia (Chronic) Fibromyalgia (Chronic) Psoriatic arthritis (Chronic) IBS (irritable bowel syndrome) (Chronic) Type II diabetes mellitus (Chronic) PSVT (paroxysmal supraventricular tachycardia) (Chronic) HLD (hyperlipidemia) (Chronic) Vertigo (Chronic) Hospital Course and Treatment Operations: None Procedures: Nuclear stress test Summary of Care Provided: The patient is a 65 year old F seen in the emergency room at [facility] with chief complaint of precordial chest discomfort which she described as sharp in nature. Work-up in the emergency room including cardiac isoenzymes, EKG, and chest x-ray was unremarkable. Labs showed an elevated white blood cell count, chemistry profile showed an elevated glucose at 325. Patient was placed in observation status on PCU, serial cardiac enzymes were obtained and these remained normal, patient underwent a nuclear stress test on 12/10/2020 which showed no evidence of reversible ischemia. On examination she appeared in good health and spirits, she does not appear to be in any distress. Vital signs as documented. Skin warm and dry and without overt rashes. Neck without JVD, thyroid appears normal, trachea is midline, neck is supple. Lungs clear, normal air movement was noted. Heart exam notable for regular rhythm, normal sounds and absence of murmurs, rubs or gallops. Abdomen unremarkable and without evidence of organomegaly, masses, or abdominal aortic enlargement, bowel sounds are present in all 4 quadrants, no abdominal tenderness was noted. Extremities nonedematous, no cyanosis was noted, no clubbing was noted. Neuro: Cranial nerves II through XII are grossly intact, no focal motor deficits were noted, sensation to light touch and pinprick is intact, motor exam 5/5 throughout. Psych: Patient is alert and oriented x3, she does not appear anxious or depressed, she does not appear agitated. Patient was discharged in stable condition on 12/10/2020. Patient Problems: Active and Suspected Problems (Last Updated 09/12/18 @ 11:29 by Pat Fuchs) Chest pain (Acute) - Physical Exam Vitals/I&O's: Vital Signs Temp Pulse Resp BP Pulse Ox 98.1 F 69 18 148/57 H 98 12/10/20 10:30 12/10/20 10:30 12/10/20 10:30 12/10/20 10:30 12/10/20 10:30 Oxygen Delivery Method Room Air Weight: 90.3 kg Body Mass Index (BMI) 36.3 Finger Stick Blood Glucose 319 Intake and Output for Last 24 Hours 12/08/20 12/09/20 12/10/20 23:59 23:59 23:59 Intake Total 1505.00 / 1505.00 Balance 1505.00 / 1505.00 Laboratory Results 12/09/20 17:10: Magnesium 2.1 12/09/20 20:13: Troponin I < 0.015 12/09/20 22:13: POC Glucose 228 H 12/09/20 23:05: Troponin I < 0.015 12/10/20 04:30: WBC 11.4 H, RBC 5.00, Hgb 14.1, Hct 45.0, MCV 90.0, MCH 28.2, MCHC 31.3 L, RDW Std Deviation 44.1 H, RDW Coeff of Haleigh 13.4, Plt Count 398, MPV 10.2, Immature Gran % (Auto) 0.700, Neut % (Auto) 62.0, Lymph % (Auto) 25.7, Bland % (Auto) 6.2, Eos % (Auto) 4.7, Baso % (Auto) 0.7, Absolute Neuts (auto) 7.1, Absolute Lymphs (auto) 2.92, Nucleated RBC % 0 12/10/20 04:30: Sodium 138, Potassium 4.3, Chloride 103, Carbon Dioxide 32.0, Anion Gap 3 L, BUN 11, Creatinine 0.74, Estim Creat Clear Calc 61.54, Est GFR (MDRD) Af Amer 102, Est GFR (MDRD) Non-Af 84, BUN/Creatinine Ratio 14.9, Glucose 238 H, Calcium 9.1, Total Bilirubin 0.40, AST 23, ALT 28, Alkaline Phosphatase 145 H, Total Protein 6.9, Albumin 3.2, Globulin 3.7, Albumin/Globulin Ratio 0.9, Triglycerides 232 H, Cholesterol 297 H, LDL Cholesterol 220 H, VLDL Cholesterol 46 H, HDL Cholesterol 31 L 12/10/20 04:30: Hemoglobin A1c 9.6 H 12/10/20 06:52: POC Glucose 245 H 12/10/20 11:09: POC Glucose 235 H Discharge Activity: Return to Normal Activity Home Medications: Medications to take at Discharge duloxetine 60 mg capsule,delayed release 60 mg PO QDAY 01/15/18 metoprolol tartrate 75 mg tablet 75 mg PO BID #60 tab 09/12/18 ramipril 5 mg capsule 5 mg PO DAILY #30 cap 09/12/18 Insulin Aspart [Novolog Flexpen] 12/09/20 Insulin Degludec [Tresiba Flextouch U-200] 100 units SC DAILY 12/09/20 Pantoprazole Sodium [Protonix] 1 tablet PO DAILY 12/09/20 Primary Care Physician: Aida Nolan DO [Primary Care Provider] - Please follow up with your Primary Care Physician in: in one week Disposition: Home Minutes spent on discharge:: 30 Patient Condition:: Stable Medical Necessity - Tobacco Use Smoking Status: Former smoker Tobacco Use: Non-smoker Meaningful Use Info Meaningful Use Diagnoses (Choose all that apply): None applicable OBSV E&M: 72803 Observation care discharge
== END 2020-12-10 12:35 | disposition home or self-care (01) ==
LOC: ED 17:16 → PCU 19:18
PROVIDERS: Admitting Provider Family Medicine; Emergency Provider Emergency Medicine; PCP Internal Medicine; Visit Provider Internal Medicine
DX: R07.89 Other chest pain (principal); M79.602 Pain in left arm; I25.10 Atherosclerotic heart disease of native coronary artery without angina pectoris; E78.5 Hyperlipidemia, unspecified; E11.9 Type 2 diabetes mellitus without complications; I10 Essential (primary) hypertension; M25.512 Pain in left shoulder; E66.9 Obesity, unspecified; M79.7 Fibromyalgia; K58.9 Irritable bowel syndrome, unspecified; L40.50 Arthropathic psoriasis, unspecified; F41.9 Anxiety disorder, unspecified; F32.9 Major depressive disorder, single episode, unspecified; Z79.4 Long term (current) use of insulin; Z79.899 Other long term (current) drug therapy; Z87.891 Personal history of nicotine dependence; Z68.37 Body mass index [BMI] 37.0-37.9, adult; K21.9 Gastro-esophageal reflux disease without esophagitis
CPT/HCPCS: 36415; 71045; 71275; 78452; 80048; 80053; 80061; 82962; 83036; 83735; 84484; 85025; 93005; 93017; 93971; 96361; 96374; 96375; 96376; 99218; 99251; 99285; A9500; J7030; Q9967; A4216; G0378; G0463; J2405; J2785

== ENCOUNTER 2021-01-11 11:16 | Inpatient (IN) | payer MEDICARE, SELFPAY ==
[2020-12-09 20:08] VITALS: BMI 36.3
[2021-01-11] VITALS (8 sets, daily range): BP systolic 129–168; BP diastolic 60–92; PULSE 81–123; RESP 14–18; TEMP 36–37.1; O2SAT 96–98; BMI 35.6; BMI 35.9
--- NOTE | 2021-01-11 11:34 | EDS_ITS ---
HPI HPI - GI History of Present Illness Chief Complaint: GI Bleed Informant: patient and family Abdominal Pain/Flank Pain Onset: Yesterday (Yesterday morning at 0400) Context: Sudden Onset Timing: Intermittent Quality: - (Crampy with bowel movements) Location: Diffuse Current Severity: Mild Maximum Severity: Severe Worsened by: Nothing Relieved by: Nothing Nausea/Vomiting/Emesis GI Symptom: Positive for Nausea and Vomiting Onset: Yesterday Diarrhea/Melena/Hematochezia GI Symptom: Positive for Diarrhea and Hematochezia Onset: Yesterday Stool Quality: Positive for Watery Severity: Moderate PFSH PFSH Medical History (Updated 01/11/21 @ 15:[address] Daniel Oakley MD) Abnormal nuclear stress test Angina pectoris Atherosclerotic heart disease of [place] coronary artery without angina pectoris CAD (coronary artery disease) Chest pain Essential hypertension Fibromyalgia Headache HLD (hyperlipidemia) Hypertension IBS (irritable bowel syndrome) Psoriatic arthritis PSVT (paroxysmal supraventricular tachycardia) Tingling Type II diabetes mellitus Vertigo Home Medications duloxetine 60 mg capsule,delayed release 60 mg PO DAILY 01/15/18 [History Last Taken 01/09/21] metoprolol tartrate 75 mg tablet 75 mg PO BID #60 tab 09/12/18 [Rx Last Taken 01/09/21] ramipril 5 mg capsule 5 mg PO DAILY #30 cap 09/12/18 [Rx Last Taken 01/09/21] insulin aspart U-100 [Novolog Flexpen U-100 Insulin] 30 - 60 unit SUBCUT TIDCM 12/09/20 [History Last Taken 01/11/21] insulin degludec 120 units SC DAILY 12/09/20 [History Last Taken 01/11/21] pantoprazole [Protonix] 40 mg PO DAILY 12/09/20 [History Last Taken 01/09/21] Allergy/AdvReac Type Severity Reaction Status Date / Time adhesive tape Allergy Rash Verified 01/11/21 11:19 cefaclor [From Ceclor] Allergy Unknown Verified 01/11/21 11:19 liraglutide [From Victoza] Allergy Upset Verified 01/11/21 11:19 Stomach morphine Allergy my body Verified 01/11/21 11:19 felt like it was on fire; vomiting nalbuphine HCl [From Nubain] Allergy lungs Verified 01/11/21 11:19 froze up omeprazole [From Prilosec] Allergy can't Verified 01/11/21 11:19 remember omeprazole magnesium Allergy Unknown Verified 01/11/21 11:19 [From Prilosec] Penicillins Allergy tightness Verified 01/11/21 11:19 in throat sulfamethoxazole Allergy Unknown Verified 01/11/21 11:19 [From Bactrim] trimethoprim [From Bactrim] Allergy Unknown Verified 01/11/21 11:19 codeine AdvReac hallucinati Verified 01/11/21 11:19 ons Family History (Updated 09/12/18 @ 11:31 by Pat Fuchs) Father Heart disease CVA (cerebral vascular accident) Sister Breast cancer Heart disease Mother Kidney disease Diabetes CHF (congestive heart failure) Sister , age 40 Diabetes Kidney disease Surgical History H/O: hysterectomy History of esophagogastroduodenoscopy (EGD) (~01/2018) History of melanoma excision Hx of dilation and curettage Hx of melanoma excision Social History (Updated 09/12/18 @ 16:16 by Lazarus Edgar [employer], [employer]) Smoking Status: Former smoker how long ago did patient quit smokin years ago alcohol intake: never substance use type: does not use caffeine: Yes Type: coffee Number of servings: 3 ROS ROS ED Constitutional Constitutional ED: Reports sweats; Denies chills, fever(s) or subjective ENT ENT ED: Denies ear pain, rhinorrhea or sore throat Cardiovascular Cardiovascular: Denies chest pain or palpitations Respiratory/Chest Respiratory/Chest: Denies cough, dyspnea or dyspnea on exertion Gastrointestinal Gastrointestinal: Reports abdominal pain, diarrhea, nausea, vomiting and other Details: Bright red blood at the end of loose stool and bright red blood on toilet paper. ; Denies melena Genitourinary Genitourinary ED: Denies dysuria, hematuria or urinary frequency Musculoskeletal Musculoskeletal: Denies arthralgias or myalgias Integumentary Denies rash Neurologic Neurologic: Reports weakness; Denies headache(s) or paresthesias Endocrine Endocrinology: Denies polydipsia, polyphagia or polyuria Hematologic/Lymphatic Hematologic/Lymphatic: Denies easy bruising EXAM Physical Exam Const Vital Signs: 01/11/21 11:17 01/11/21 11:34 01/11/21 14:05 Temperature 96.8 F L 96.8 F L Temperature Source Temporal Temporal Pulse Rate 123 H 123 H 101 H Respiratory Rate 16 16 14 Blood Pressure 168/84 H 168/84 H 152/73 H Blood Pressure Mean 112 112 99 Pulse Ox 97 97 98 Oxygen Delivery Method Room Air Room Air Room Air Positive well nourished, well developed and obese General Appearance ED: well developed and NAD Nutritional Appearance: obese HEENT Reports dry mucous membranes normocephalic and atraumatic Mouth ED: Yes dry mucous membranes Mouth: dry mucous membranes Eyes PERRL and EOMs intact bilaterally General Eye ED: Negative for pale conjunctiva or scleral icterus Neck no lymphadenopathy, supple and no JVD Resp normal respiratory effort and clear to auscultation bilaterally Cardio regular rhythm, S1 normal heart sound, S2 normal heart sound and no murmurs Rate: tachycardic GI non-tender, non-distended and no masses Auscultation: hypoactive bowel sounds; Negative for normoactive bowel sounds Palpation: soft Back/Spine no CVA tenderness Thoracic Spine / Upper Back: Negative for thoracic spinal tenderness Lumbar Spine / Lower Back: Negative for lumbar spinal tenderness Extremity full ROM General Extremety ED: Yes edema General Extremity: edema Neuro CN's II-XII intact bilaterally and no sensory deficits noted Sensorium / Orientation: alert, oriented to person, oriented to place and oriented to time Motor Exam: strength 5/5 throughout Psych mental status grossly normal and thought process normal Skin no wounds Lesions: no lesions Rashes: no rashes MDM MDM MDM Narrative Medical decision making narrative: Patient had poor p.o. intake and history of diabetes hypertension basic metabolic panel was obtained to assess glucose, CO2/anion gap and renal function. CBC was obtained to assess white count and H&H. Anoscope was ordered to perform anoscopy. Suspect the bright red blood is due to hemorrhoids. She states had a colonoscopy several weeks ago and was told there was no abnormality. CT reveals colitis. Since patient has allergy to penicillin she was here ciprofloxacin is all. Since she has bright red blood per rectum hospitalist was paged for admission. Lab Data Attestation: I reviewed the patient's lab results. Labs: Laboratory Results - last 24 hr 01/11/21 01/11/21 11:48 11:48 WBC 18.8 H RBC 5.35 Hgb 15.1 H Hct 45.6 MCV 85.2 MCH 28.2 MCHC 33.1 RDW Std Deviation 40.2 RDW Coeff of Haleigh 13.0 Plt Count 435 MPV 10.1 Immature Gran % (Auto) 0.600 Neut % (Auto) 73.9 H Lymph % (Auto) 18.8 L [place] % (Auto) 4.5 Eos % (Auto) 1.7 Baso % (Auto) 0.5 Absolute Neuts (auto) 13.9 H Absolute Lymphs (auto) 3.54 Nucleated RBC % 0 Sodium 134 L Potassium 3.7 Chloride 99 Carbon Dioxide 28.0 Anion Gap 7 BUN 11 Creatinine 0.92 Estim Creat Clear Calc 49.50 Est GFR (MDRD) Af Amer 79 Est GFR (MDRD) Non-Af 65 BUN/Creatinine Ratio 11.9 Glucose 313 H Calcium 9.2 With elevated white count of 18.8 thousand with shift and concern for infectious/ischemic colitis CT of the abdomen and pelvis with p.o. and IV contrast was ordered. Blood sugar is elevated 313. CO2 and anion gap are normal. Will treat with fluids at this time. Radiography Diagnostic Testing: Radiology Impression Abdomen/Pelvis CT 01/11/21 12:53 IMPRESSION: Findings in keeping with colitis involving the left hemicolon. Fatty infiltration of the liver. Electronically Signed: David Stinson MD at 15:12 EDT , Service support , Procedures Other Procedures Procedure(s): Anoscopy Patient has gross blood on rectal exam. There is no fissures, fistulas or he morrhoids that are visible. Anoscopy reveals dark red-maroon blood beyond the scope. There is no obvious hemorrhoids or bleeding from hemorrhoids. The rectal bowel wall appears normal. Discharge Plan Triage Chief Complaint: GI Bleed ED Provider: Daniel Oakley Dx/Rx/DC Orders Clinical Impression: Colitis with rectal bleeding, Abdominal pain, vomiting, and diarrhea, Hyperglycemia due to type 2 diabetes mellitus Prescriptions: No Action duloxetine 60 mg capsule,delayed release(DR/EC) 60 mg PO DAILY RF: 0 ramipril 5 mg capsule 5 mg PO DAILY Qty: 30 RF: 3 metoprolol tartrate 75 mg tablet 75 mg PO BID Qty: 60 RF: 11 insulin aspart U-100 [Novolog Flexpen U-100 Insulin] 100 UNITS/ML insulin pen 30 - 60 unit subcut TIDCM RF: 0 insulin degludec 200 UNIT/ML insulin pen 120 units SC DAILY RF: 0 pantoprazole [Protonix] 40 MG tablet 40 mg PO DAILY RF: 0 Primary Care Provider: Aida Nolan Referrals: Aida Nolan DO [Primary Care Provider] - Disposition Disposition: Acute Care Hospital [facility]
[2021-01-11] MEDS: Ondansetron 4 MG/2 ML Vial IV (12:00)
[2021-01-11] MEDS: Loperamide 2 MG Capsule 4 MG PO (12:01)
[2021-01-11 12:19] LABS: Absolute Lymphocyte Count 3.54 X10^3/uL (0.83-4.51); Absolute Neutrophil Count 13.9 X10^3/uL (2.0-7.7); Basophil# 0.09 X10^3/uL; Basophil% 0.5 % (0-1); Eosinophil# 0.32 X10^3/uL; Eosinophils% 1.7 % (0-5); Hematocrit 45.6 % (37-47); Hemoglobin 15.1 g/dL (12.0-15.0); Lymphocyte # 3.54 X10^3/ul (0.83-4.51); Lymphocyte % 18.8 % (19-41); Mean Corp Hgb Conc 33.1 g/dL (32-36); Mean Corpuscular Hgb 28.2 pg (27.0-32.0); Mean Corpuscular Volume 85.2 fL (81-99); Mean Platelet Vol. 10.1 fl (6.2-12.0); Monocyte# 0.85 X10^3/uL; Monocyte% 4.5 % (0-10); NRBC Flagged by Analyzer 0 % (0-5); Neutrophil # 13.86 X10^3/uL (2.7-7.7); Neutrophil % 73.9 % (47-70); Platelet Count 435 K/mm3 (150-450); RBC Distribution Width SD 40.2 fl (35.1-43.9); Red Blood Count 5.35 M/mm3 (4.2-5.4); White Blood Count 18.8 K/mm3 (4.4-11.0)
[2021-01-11 12:30] LABS: Anion Gap 7 (5-15); BUN 11 mg/dL (7-18); BUN/Creat Ratio 11.9 RATIO (10-20); Calcium,Total 9.2 mg/dL (8.5-10.1); Chloride 99 mmol/L (98-107); Creatinine, Serum 0.92 mg/dL (0.55-1.02); EST Glomerular Filtration Rate 65 mL/min (>60); Est Glom Filt Rate - Afr Amer 79 mL/min (>60); Glucose 313 mg/dL (74-106); Potassium 3.7 mmol/L (3.5-5.1); Sodium Level 134 mmol/L (136-145)
--- NOTE | 2021-01-11 12:53 | CT_ITS ---
STUDY: CT ABDOMEN AND PELVIS WITH CONTRAST REASON FOR EXAM: Female, 65 years old. Ischemic colitis. Nausea and vomiting. Bloody stool. Elevated white count. RADIATION DOSAGE (If Supplied By Facility): CTDIvol = ( 14.55 ) mGy, DLP = ( 883.48 ) mGycm TECHNIQUE: Transaxial images were obtained from the dome of the diaphragm to the symphysis pubis with oral contrast. Oral and amp; IV GASTROGRAFIN and amp; 100ML ISOVUE 300 was administered. Sagittal and coronal images were reconstructed. Individualized dose optimization techniques were used for this CT. COMPARISON: Comparison is made with prior examination dated 03/26/2019. FINDINGS: The visualized lung bases are unremarkable. The visualized portions of the heart are within normal limits. There is decreased attenuation of the liver consistent with steatosis. Stable 1.3 cm hypodense nodule along the posterior medial aspect of the right lobe of the liver. This most likely represents a small hemangioma. Normal gallbladder and extrahepatic biliary system. Normal spleen. There is diffuse atrophy of the pancreas. Normal bilateral adrenal glands. Normal right kidney. Normal left kidney. There is a retroaortic left renal vein. Normal visualized stomach. Normal small intestine. Diffuse circumferential thickening involving the left hemicolon from the level of the splenic flexure down to the rectum with increased markings in the surrounding peritoneal fat. This is in keeping with colitis. There is non-visualization of the appendix. There is diffuse atherosclerotic calcification of the abdominal aorta, without a demonstrated aneurysm. Normal inferior vena cava. Normal retroperitoneum. Once again, there is evidence of a cystocele. There is absence of the uterus consistent with a prior hysterectomy. Normal abdominal wall. Normal osseous structures. CT/Abdomen/Pelvis WITH Contrast IMPRESSION: Findings in keeping with colitis involving the left hemicolon. Fatty infiltration of the liver. Electronically Signed: David Stinson MD at 15:12 EDT , Service support ,
[2021-01-11] MEDS: Metoclopramide 10 MG/2 ML Vial IV (14:04)
[2021-01-11] MEDS: Ciprofloxacin 400 MG/200 ML BAG 200 MG IV ×2 (15:42→20:16)
--- NOTE | 2021-01-11 16:22 | NURSING ---
MED SURG [place] ACUTE COLITIS WITH BLEEDING
[2021-01-11] MEDS: metroNIDAZOLE 500 MG/100 ML BAG 100 MG IV ×2 (16:30→21:19)
--- NOTE | 2021-01-11 16:31 | HP.PCM.HOS_ITS ---
HPI - General General Chief Complaint: Rectal bleeding. HPI Narrative SINAN DEE, is a 65 F with past medical history as mentioned above presented to the emergency room because of rectal bleeding, diarrhea and abdominal pain. Patient's illness started yesterday with lower abdominal pain, constant sharp pain, 7 out of 10 in severity, not radiating, associated with diarrhea as well a s nausea and vomiting and without aggravating or relieving factors. Patient had diarrhea initially for almost every 20 minutes and then today, she started having bright red bloody stool. She described the bleeding as bright red blood with blood clots, moderate amount with minimal stool. She reported associated chills but no fever. She denied urinary symptoms. She stated that she had colonoscopy done at Dr. Us's office 2 weeks ago and had EGD done as well couple of weeks before that. She was informed that her colonoscopy looked okay. In the emergency department, she was afebrile, tachycardic, blood pressure was elevated, pulse ox was 97% on room air. Routine blood work was remarkable for leukocytosis, blood glucose was 313. CT scan abdomen and pelvis with contrast revealed findings consistent with left hemicolon colitis. Patient is being admitted for acute colitis of the left hemicolon and sepsis. [facility] Medical History (Updated 01/11/21 @ 16:[address] Ron Lucero MD) Abnormal nuclear stress test Angina pectoris Atherosclerotic heart disease of [place] coronary artery without angina pectoris CAD (coronary artery disease) Essential hypertension Fibromyalgia HLD (hyperlipidemia) Hypertension IBS (irritable bowel syndrome) Psoriatic arthritis PSVT (paroxysmal supraventricular tachycardia) Type II diabetes mellitus Home Medications duloxetine 60 mg capsule,delayed release 60 mg PO DAILY 01/15/18 [History Last Taken 01/09/21] metoprolol tartrate 75 mg tablet 75 mg PO BID #60 tab 09/12/18 [Rx Last Taken 01/09/21] ramipril 5 mg capsule 5 mg PO DAILY #30 cap 09/12/18 [Rx Last Taken 01/09/21] insulin aspart U-100 [Novolog Flexpen U-100 Insulin] 30 - 60 unit SUBCUT TIDCM 12/09/20 [History Last Taken 01/11/21] insulin degludec 120 units SC DAILY 12/09/20 [History Last Taken 01/11/21] pantoprazole [Protonix] 40 mg PO DAILY 12/09/20 [History Last Taken 01/09/21] Allergy/AdvReac Type Severity Reaction Status Date / Time adhesive tape Allergy Rash Verified 01/11/21 11:19 cefaclor [From Ceclor] Allergy Unknown Verified 01/11/21 11:19 liraglutide [From Victoza] Allergy Upset Verified 01/11/21 11:19 Stomach morphine Allergy my body Verified 01/11/21 11:19 felt like it was on fire; vomiting nalbuphine HCl [From Nubain] Allergy lungs Verified 01/11/21 11:19 froze up omeprazole [From Prilosec] Allergy can't Verified 01/11/21 11:19 remember omeprazole magnesium Allergy Unknown Verified 01/11/21 11:19 [From Prilosec] Penicillins Allergy tightness Verified 01/11/21 11:19 in throat sulfamethoxazole Allergy Unknown Verified 01/11/21 11:19 [From Bactrim] trimethoprim [From Bactrim] Allergy Unknown Verified 01/11/21 11:19 codeine AdvReac hallucinati Verified 01/11/21 11:19 ons Family History (Updated 09/12/18 @ 11:31 by Pat Fuchs) Father Heart disease CVA (cerebral vascular accident) Sister Breast cancer Heart disease Mother Kidney disease Diabetes CHF (congestive heart failure) Sister , age 40 Diabetes Kidney disease Surgical History H/O: hysterectomy History of esophagogastroduodenoscopy (EGD) (~01/2018) History of melanoma excision Hx of dilation and curettage Hx of melanoma excision Social History (Updated 09/12/18 @ 16:16 by Lazarus Edgar BUSINESS SERVICES ANALYST, BUSINESS SERVICES ANALYST-C) Smoking Status: Former smoker how long ago did patient quit smokin years ago alcohol intake: never substance use type: does not use caffeine: Yes Type: coffee Number of servings: 3 ROS Constitutional Constitutional: Reports anorexia and chills; Denies fatigue, fever(s) or malaise Eyes Eyes: Denies blurry vision, change in eye color, change in vision, double vision or eye pain ENT HEENT: Denies ear pain, epistaxis, headache(s), nasal congestion, post nasal drip or sore throat Cardiovascular Cardiovascular: Denies chest pain, dyspnea on exertion, edema, lightheadedness, orthopnea, palpitations, paroxysmal nocturnal dyspnea or syncope Respiratory/Chest Respiratory/Chest: Denies cough, dyspnea, hemoptysis, productive cough, s hortness of breath at rest, shortness of breath with exertion or wheezing Gastrointestinal Gastrointestinal: Reports abdominal pain, diarrhea, hematochezia, nausea and vomiting; Denies constipation, hematemesis or melena Genitourinary Genitourinary: Denies burning urination, dysuria, hematuria, urinary hesitancy or urinary urgency Musculoskeletal Musculoskeletal: Denies arthralgias, back pain, joint pain, joint swelling, myalgias or neck pain Neurologic Neurologic: Denies confusion, dizziness, focal weakness, headache(s), numbness, paresthesias, seizures, tingling or tremor(s) Psychiatric Psychiatric: Denies anxiety, depression, homicidal ideation or suicidal ideation Endocrine Endocrinology: Denies change in body appearance, cold intolerance, heat intolerance, polydipsia or polyuria Hematologic/Lymphatic Hematologic/Lymphatic: Reports other; Denies easy bleeding, easy bruising or lymphadenopathy Allergic/Immunologic Allergic/Immunologic: Denies itchy eyes, rhinitis, throat swelling, tongue swelling, hives, urticaria or wheezing Vital Signs Vital Signs Vital Signs: 01/11/21 11:17 01/11/21 11:34 01/11/21 14:05 Temperature 96.8 F L 96.8 F L Temperature Source Temporal Temporal Pulse Rate 123 H 123 H 101 H Respiratory Rate 16 16 14 Blood Pressure 168/84 H 168/84 H 152/73 H Blood Pressure Mean 112 112 99 Pulse Ox 97 97 98 Oxygen Delivery Method Room Air Room Air Room Air 01/11/21 16:12 Temperature Temperature Source Pulse Rate Respiratory Rate Blood Pressure 162/92 H Blood Pressure Mean 115 Pulse Ox 96 Oxygen Delivery Method Room Air Physical Exam Const alert, oriented x3, no apparent distress and no limitations General Appearance: cooperative, comfortable and well kempt HEENT normocephalic, head/scalp atraumatic and moist oral mucous membranes Head and Scalp: normocephalic and atraumatic Eyes PERRL, EOMs intact bilaterally, conjunctivae normal and no scleral icterus General Eye: normal appearance of both eyes Periorbital: periorbital findings normal Neck no lymphadenopathy, supple, no meningeal signs, no JVD and no carotid bruits General: trachea midline Thyroid: thyroid normal Resp normal respiratory effort, normal air movement and clear to auscultation bilater ally Auscultation: Negative for crackles, rales, rhonchi or wheezes Cardio regular rate, regular rhythm, S1 normal heart sound, S2 normal heart sound and no murmurs Cardio Narrative: Tachycardia. Peripheral Pulses: pulses 2+ throughout GI normal to inspection, nondistended, normoactive bowel sounds, soft to palpation, non-tender and non-distended; Negative for hepatosplenomegaly Auscultation: normoactive bowel sounds Extremity normal to inspection, full ROM and no clubbing, cyanosis or edema Skin no rashes or lesions noted, no wounds and no petechiae Neuro oriented x3, CN's II-XII intact bilaterally and moves all extremities Sensorium / Orientation: alert Speech: speech normal Motor Exam: strength 5/5 throughout Psych mental status grossly normal, affect normal and denies hallucinations Lab / Micro Data Result Diagrams: 01/11/21 11:48 01/11/21 11:48 Labs: Laboratory Results - last 24 hr 01/11/21 01/11/21 11:48 11:48 WBC 18.8 H RBC 5.35 Hgb 15.1 H Hct 45.6 MCV 85.2 MCH 28.2 MCHC 33.1 RDW Std Deviation 40.2 RDW Coeff of Haleigh 13.0 Plt Count 435 MPV 10.1 Immature Gran % (Auto) 0.600 Neut % (Auto) 73.9 H Lymph % (Auto) 18.8 L [place] % (Auto) 4.5 Eos % (Auto) 1.7 Baso % (Auto) 0.5 Absolute Neuts (auto) 13.9 H Absolute Lymphs (auto) 3.54 Nucleated RBC % 0 Sodium 134 L Potassium 3.7 Chloride 99 Carbon Dioxide 28.0 Anion Gap 7 BUN 11 Creatinine 0.92 Estim Creat Clear Calc 49.50 Est GFR (MDRD) Af Amer 79 Est GFR (MDRD) Non-Af 65 BUN/Creatinine Ratio 11.9 Glucose 313 H Calcium 9.2 Radiology Impression Abdomen/Pelvis CT 01/11/21 12:53 IMPRESSION: Findings in keeping with colitis involving the left hemicolon. Fatty infiltration of the liver. Electronically Signed: David Stinson MD at 15:12 EDT , Service support , Assessment & Plan Assessment/Plan (1) Rectal bleed: (2) Sepsis: (3) Acute colitis: (4) HTN (hypertension): QUALIFIERS: Hypertension type: essential hypertension Qualified Code(s): I10 - Essential (primary) hypertension (5) Type II diabetes mellitus: QUALIFIERS: Diabetes mellitus complication status: with other specified complication Diabetes mellitus manager intermediate insulin use: with manager intermediate use Qualified Code(s): E11.69 - Type 2 diabetes mellitus with other specified complication; Z79.4 - termination clerk (current) use of insulin (6) HLD (hyperlipidemia): QUALIFIERS: Hyperlipidemia type: unspecified Qualified Code(s): E78.5 - Hyperlipidemia, unspecified PLAN: This is a 65 years old female patient presented to the emergency room because of abdominal pain, diarrhea, rectal bleeding and she was found to have findings consistent with acute colitis of the left hemicolon as well as sepsis and she is being admitted for treatment. #1 acute colitis of the left hemicolon/sepsis: Patient is tachycardic, having leukocytosis and there is evidence of infection. Lactic acid was not done in the ED. CT scan abdomen pelvis reviewed as above. Plan: Admit to MedSurg floor, clear liquids, IV fluids, IV morphine as needed for pain, stat lactic acid, Zofran as needed, start IV Flagyl and ciprofloxacin, stool for C. difficile, stool for enteric pathogens, repeat CBC and BMP in the morning, obtain colonoscopy and upper EGD report from Dr. Bradley's office that was done few weeks ago. #2 type 2 diabetes mellitus: ADA diet, Accu-Cheks, insulin scale, continue home doses of insulin. #3 hypertension: Blood pressure slightly elevated in the ED. Continue metoprolol and ramipril, start IV hydralazine as needed. #3 history of paroxysmal SVT: Heart rate was around 110 in the ED, sinus tachycardia. Plan to resume metoprolol. #5 psoriatic arthritis/fibromyalgia: Stable, plan for Tylenol as needed. #6 DVT prophylaxis: SCDs. This note was generated with [employer] software. It may contain incorrect words, spelling, and punctuation that were not noted in checking the note before signing. Visit Charges Inpatient E&M: 04079 Init Hosp L3
--- NOTE | 2021-01-11 17:27 | ED.RN ---
unable to document in admission order. an error comes up and says sorry but an associated order has unsavd date in OM. you cannot enter activity until the order is filed.
[2021-01-11 17:57] LABS: Lactic Acid 0.7 mmol/L (0.4-1.9)
[2021-01-11] MEDS: 0.9% Normal Saline 1,000 ML 100 ML IV (18:43)
[2021-01-11] MEDS: 0.9% Saline Lock 10 ML Syringe IV (18:43)
[2021-01-11] MEDS: Insulin Lispro 100 UNIT/ML INSULN.PEN SC ×2 (18:59→21:21)
[2021-01-11 19:11] LABS: Bedside Glucose 193 mg/dL (70-110)
[2021-01-11] MEDS: Metoprolol Tartrate 25 MG Tablet 75 MG PO (21:19)
[2021-01-11 21:30] LABS: Bedside Glucose 261 mg/dL (70-110)
[2021-01-12] VITALS (11 sets, daily range): BP systolic 113–142; BP diastolic 55–61; PULSE 62–77; RESP 16; TEMP 36.5–37.1; O2SAT 95–99
[2021-01-12 05:08] LABS: Absolute Lymphocyte Count 2.82 X10^3/uL (0.83-4.51); Absolute Neutrophil Count 11.2 X10^3/uL (2.0-7.7); Basophil# 0.07 X10^3/uL; Basophil% 0.4 % (0-1); Eosinophils% 3.9 % (0-5); Hematocrit 41.9 % (37-47); Hemoglobin 13.7 g/dL (12.0-15.0); Lymphocyte # 2.82 X10^3/ul (0.83-4.51); Lymphocyte % 18.1 % (19-41); Mean Corp Hgb Conc 32.7 g/dL (32-36); Mean Corpuscular Hgb 28.5 pg (27.0-32.0); Mean Corpuscular Volume 87.3 fL (81-99); Mean Platelet Vol. 9.7 fl (6.2-12.0); Monocyte# 0.82 X10^3/uL; Monocyte% 5.3 % (0-10); NRBC Flagged by Analyzer 0 % (0-5); Neutrophil # 11.17 X10^3/uL (2.7-7.7); Neutrophil % 71.7 % (47-70); Platelet Count 387 K/mm3 (150-450); RBC Distribution Width SD 41.9 fl (35.1-43.9); White Blood Count 15.6 K/mm3 (4.4-11.0)
[2021-01-12 05:22] LABS: Anion Gap 5 (5-15); BUN 7 mg/dL (7-18); BUN/Creat Ratio 10.9 RATIO (10-20); Calcium,Total 8.1 mg/dL (8.5-10.1); Chloride 105 mmol/L (98-107); Creatinine, Serum 0.64 mg/dL (0.55-1.02); EST Glomerular Filtration Rate 99 mL/min (>60); Est Glom Filt Rate - Afr Amer 120 mL/min (>60); Estimated Creatinine Clearance 71.16 ml/min; Glucose 142 mg/dL (74-106); Potassium 3.5 mmol/L (3.5-5.1); Sodium Level 139 mmol/L (136-145)
[2021-01-12] MEDS: metroNIDAZOLE 500 MG/100 ML BAG 100 MG IV ×3 (06:23→21:04)
[2021-01-12] MEDS: 0.9% Normal Saline 1,000 ML 100 ML IV ×2 (06:23→19:05)
[2021-01-12 06:30] LABS: Bedside Glucose 106 mg/dL (70-110)
[2021-01-12] MEDS: Acetaminophen 325 MG Tablet 650 MG PO (08:29)
[2021-01-12] MEDS: Metoprolol Tartrate 25 MG Tablet 75 MG PO ×2 (10:14→22:05)
[2021-01-12] MEDS: Ramipril 5 MG Capsule PO (10:14)
[2021-01-12] MEDS: Pantoprazole Sodium 40 MG Tablet PO (10:14)
[2021-01-12] MEDS: Ciprofloxacin 400 MG/200 ML BAG 200 MG IV ×2 (10:14→22:05)
[2021-01-12] MEDS: DULoxetine Hcl 60 MG Capsule PO (10:14)
[2021-01-12 11:10] LABS: Bedside Glucose 179 mg/dL (70-110)
[2021-01-12] MEDS: Insulin Lispro 100 UNIT/ML INSULN.PEN SC ×3 (11:50→23:49)
[2021-01-12] MEDS: HYDROmorphone 1 MG/ML Syringe IV (11:51)
[2021-01-12] MEDS: Ondansetron 4 MG/2 ML Vial IV (12:12)
--- NOTE | 2021-01-12 12:49 | NURSING ---
RN CM Assessment Introduced role of RN CM to patient and dtleonardo Cordova at bedside.? Patient is alert, oriented and able?to participate in RN CM Assessment but drowsy s/p receiving pain medication so most information obtained from shyam Zamarripa with patient confirmation and chiming in. ?Care providers, pharmacy, and demographics verified. Admit Dx: Acute Colitis, Sepsis Re-Admit: No Barriers/Issues: None PCP: Aida Nolan Specialists: Cardio- Timmy, GI- Abeba Preferred Pharmacy: [facility] Insurance: [facility] A/B Rx Benefit:?Yes- Mcr D LNOK: Stanislav Cordova SR, Dtr Marilou Cordova LW/HPOA: None, information given. Aware can return as an outpatient to complete and if wishes to complete on this admission to notify staff. Living Arrangements:? Lives with in a Trailer, 3 steps with rails to enter. ADL?s: Ind with ambulation and ADLs Transportation: Both patient and drive. Shyam Zamarripa will transport upon discharge. DME: [employer] HHC: None SNF: None Goal: Home and does not think will have any needs, issues or concerns with discharge. Denies any questions at this time. Shyam Zamarripa is a EMT PAR[employer] and can assist patient with needs. Aware RNCM remains available should any needs arise. DC PLAN: Home with no anticipated needs identified at this time. JUSTIN Devi
[2021-01-12 17:10] LABS: Bedside Glucose 156 mg/dL (70-110)
--- NOTE | 2021-01-12 17:37 | PCM.PN.HOSP ---
Subjective Subjective PATIENT WAS SEEN AND EXAMINED TODAY, SHE BECAME NAUSEATED WITH DILAUDID TODAY, I CHANGED HER PAIN MED TO TORADOL. PATIENT'S WBC'S WERE STILL ELEVATED TODAY Objective Data Objective Data Vital Signs: Vital Signs Temp Pulse Resp BP Pulse Ox 97.7 F L 62 16 113/55 L 95 01/12/21 14:22 01/12/21 14:22 01/12/21 14:22 01/12/21 14:22 01/12/21 14:22 Oxygen Delivery Method Room Air Weight: 88.9 kg Body Mass Index (BMI) 35.9 Finger Stick Blood Glucose 319 Intake & Output: Intake and Output for Last 24 Hours 01/10/21 01/11/21 01/12/21 23:59 23:59 23:59 Intake Total 1100 / 1400 2951.67 / 2951.67 Output Total 400 / 400 Balance 1100 / 1000 2551.67 / 2551.67 Lab / Micro Data Result Diagrams: 01/12/21 04:50 01/12/21 04:50 Labs: Laboratory Results - last 24 hr 01/11/21 01/11/21 01/11/21 17:04 18:56 21:18 WBC RBC Hgb Hct MCV MCH MCHC RDW Std Deviation RDW Coeff of Haleigh Plt Count MPV Immature Gran % (Auto) Neut % (Auto) Lymph % (Auto) [place] % (Auto) Eos % (Auto) Baso % (Auto) Absolute Neuts (auto) Absolute Lymphs (auto) Nucleated RBC % Sodium Potassium Chloride Carbon Dioxide Anion Gap BUN Creatinine Estim Creat Clear Calc Est GFR (MDRD) Af Amer Est GFR (MDRD) Non-Af BUN/Creatinine Ratio Glucose Lactic Acid 0.7 Calcium POC Glucose 193 H 261 H 01/12/21 01/12/21 01/12/21 04:50 04:50 06:25 WBC 15.6 H RBC 4.80 Hgb 13.7 Hct 41.9 MCV 87.3 MCH 28.5 MCHC 32.7 RDW Std Deviation 41.9 RDW Coeff of [place]igh 13.0 Plt Count 387 MPV 9.7 Immature Gran % (Auto) 0.600 Neut % (Auto) 71.7 H Lymph % (Auto) 18.1 L [place] % (Auto) 5.3 Eos % (Auto) 3.9 Baso % (Auto) 0.4 Absolute Neuts (auto) 11.2 H Absolute Lymphs (auto) 2.82 Nucleated RBC % 0 Sodium 139 Potassium 3.5 Chloride 105 Carbon Dioxide 29.0 Anion Gap 5 BUN 7 Creatinine 0.64 Estim Creat Clear Calc 71.16 Est GFR (MDRD) Af Amer 120 Est GFR (MDRD) Non-Af 99 BUN/Creatinine Ratio 10.9 Glucose 142 H Lactic Acid Calcium 8.1 L POC Glucose 106 01/12/21 01/12/21 11:03 17:03 WBC RBC Hgb Hct MCV MCH MCHC RDW Std Deviation RDW Coeff of Haleigh Plt Count MPV Immature Gran % (Auto) Neut % (Auto) Lymph % (Auto) [place] % (Auto) Eos % (Auto) Baso % (Auto) Absolute Neuts (auto) Absolute Lymphs (auto) Nucleated RBC % Sodium Potassium Chloride Carbon Dioxide Anion Gap BUN Creatinine Estim Creat Clear Calc Est GFR (MDRD) Af Amer Est GFR (MDRD) Non-Af BUN/Creatinine Ratio Glucose Lactic Acid Calcium POC Glucose 179 H 156 H Physical Exam Const alert, oriented x3, no apparent distress and healthy appearing General Appearance: cooperative, well kempt and well developed Orientation / Consciousness: awake, oriented to person, oriented to place and oriented to time HEENT normocephalic and moist oral mucous membranes Eyes PERRL, EOMs intact bilaterally and conjunctivae normal Neck nuchal rigidity, supple, no JVD, thyroid normal and no carotid bruits General: trachea midline Resp normal respiratory effort and clear to auscultation bilaterally Auscultation: Negative for rales, rhonchi or wheezes Cardio regular rate, regular rhythm, no murmurs, no rub and no gallops GI normal to inspection, nondistended, normoactive bowel sounds, soft to palpation, non-tender and non-distended Extremity no clubbing, cyanosis or edema Skin no rashes or lesions noted General Skin Exam: no breakdown Neuro oriented x3, CN's II-XII intact bilaterally, no focal motor deficits and no sensory deficits noted Sensorium / Orientation: awake and alert Speech: speech normal Psych thought process normal and affect normal Assessment & Plan Assessment/Plan (1) Acute colitis: PLAN: #1 ACUTE COLITIS-ETIOLOGY UNKNOWN-CONTINUE IV ANTIBIOTICS, REPEAT CBC TOMORROW #2 TYPE 2 DIABETES-I HELD BASAL INSULIN TODAY, CONTINUE SLIDING SCALE INSULIN #3 PSORIATIC ARTHRITIS #4 ESSENTIAL HYPERTENSION #5 HYPERLIPIDEMIA Visit Charges Inpatient E&M: 32004 Subs Hosp L2
[2021-01-12 18:03] LABS: Absolute Lymphocyte Count 2.83 X10^3/uL (0.83-4.51); Absolute Neutrophil Count 11.2 X10^3/uL (2.0-7.7); Basophil% 0.7 % (0-1); Hematocrit 43.8 % (37-47); Hemoglobin 13.9 g/dL (12.0-15.0); Lymphocyte # 2.83 X10^3/ul (0.83-4.51); Lymphocyte % 18.6 % (19-41); Mean Corp Hgb Conc 31.7 g/dL (32-36); Mean Corpuscular Hgb 28.3 pg (27.0-32.0); Mean Platelet Vol. 9.6 fl (6.2-12.0); Monocyte# 0.78 X10^3/uL; Monocyte% 5.1 % (0-10); NRBC Flagged by Analyzer 0 % (0-5); Neutrophil # 11.16 X10^3/uL (2.7-7.7); Neutrophil % 73.1 % (47-70); Platelet Count 389 K/mm3 (150-450); RBC Distribution Width CV 13.2 % (11.6-14.6); RBC Distribution Width SD 43.3 fl (35.1-43.9); Red Blood Count 4.92 M/mm3 (4.2-5.4); White Blood Count 15.3 K/mm3 (4.4-11.0)
[2021-01-12] MEDS: 0.9% Saline Lock 10 ML Syringe IV (22:05)
[2021-01-12 23:56] LABS: Bedside Glucose 296 mg/dL (70-110)
[2021-01-13] VITALS (7 sets, daily range): BP systolic 99–122; BP diastolic 42–70; PULSE 57–66; RESP 16–18; TEMP 36.5–37; O2SAT 94–98
[2021-01-13] MEDS: 0.9% Saline Lock 10 ML Syringe IV (02:57)
[2021-01-13] MEDS: Ondansetron 4 MG/2 ML Vial IV (02:57)
[2021-01-13] MEDS: metroNIDAZOLE 500 MG/100 ML BAG 100 MG IV ×3 (05:06→21:16)
[2021-01-13] MEDS: Insulin Lispro 100 UNIT/ML INSULN.PEN SC ×4 (06:31→21:19)
[2021-01-13 06:35] LABS: Bedside Glucose 184 mg/dL (70-110)
[2021-01-13 08:20] LABS: Absolute Lymphocyte Count 2.32 X10^3/uL (0.83-4.51); Absolute Neutrophil Count 11.1 X10^3/uL (2.0-7.7); Basophil# 0.08 X10^3/uL; Basophil% 0.5 % (0-1); Eosinophil# 0.49 X10^3/uL; Eosinophils% 3.3 % (0-5); Hematocrit 40.7 % (37-47); Hemoglobin 12.7 g/dL (12.0-15.0); Lymphocyte # 2.32 X10^3/ul (0.83-4.51); Lymphocyte % 15.7 % (19-41); Mean Corp Hgb Conc 31.2 g/dL (32-36); Mean Corpuscular Hgb 27.7 pg (27.0-32.0); Mean Corpuscular Volume 88.7 fL (81-99); Mean Platelet Vol. 9.7 fl (6.2-12.0); Monocyte# 0.77 X10^3/uL; Monocyte% 5.2 % (0-10); NRBC Flagged by Analyzer 0 % (0-5); Neutrophil # 11.07 X10^3/uL (2.7-7.7); Neutrophil % 74.8 % (47-70); Platelet Count 355 K/mm3 (150-450); RBC Distribution Width CV 13.4 % (11.6-14.6); RBC Distribution Width SD 43.6 fl (35.1-43.9); Red Blood Count 4.59 M/mm3 (4.2-5.4); White Blood Count 14.8 K/mm3 (4.4-11.0)
[2021-01-13] MEDS: 0.9% Normal Saline 1,000 ML 100 ML IV ×2 (08:31→20:06)
[2021-01-13] MEDS: Ciprofloxacin 400 MG/200 ML BAG 200 MG IV ×2 (09:25→22:32)
[2021-01-13] MEDS: Metoprolol Tartrate 25 MG Tablet 75 MG PO (09:27)
[2021-01-13] MEDS: DULoxetine Hcl 60 MG Capsule PO (09:27)
[2021-01-13] MEDS: Pantoprazole Sodium 40 MG Tablet PO (09:28)
[2021-01-13] MEDS: Ramipril 5 MG Capsule PO (09:28)
--- NOTE | 2021-01-13 10:00 | CASEMGMT ---
KATHERYN BARROSO NOTE: Pt screened with [facility] Palliative Care Screening Tool for strata 3, pt does not meet criteria. Kyra MARN RN CM
[2021-01-13] MEDS: Acetaminophen 325 MG Tablet 650 MG PO (10:36)
[2021-01-13 11:11] LABS: Bedside Glucose 271 mg/dL (70-110)
[2021-01-13 16:25] LABS: Bedside Glucose 278 mg/dL (70-110)
--- NOTE | 2021-01-13 18:10 | PCM.PN.HOSP ---
Subjective Subjective Patient was seen and examined today, her white blood cell count is still elevated, she is afebrile however, she states she is not eating very much but she does not complain of any nausea at this time. Objective Data Objective Data Vital Signs: Vital Signs Temp Pulse Resp BP Pulse Ox 97.9 F 57 L 16 99/48 L 97 01/13/21 14:20 01/13/21 14:20 01/13/21 14:20 01/13/21 14:20 01/13/21 14:20 Oxygen Delivery Method Room Air Weight: 88.9 kg Body Mass Index (BMI) 35.9 Intake & Output: Intake and Output for Last 24 Hours 01/11/21 01/12/21 01/13/21 23:59 23:59 23:59 Intake Total 1100 / 1400 4250.00 / 4250.00 2491.66 / 2491.66 Output Total 400 / 400 Balance 1100 / 1000 3850.00 / 3850.00 2491.66 / 2491.66 Lab / Micro Data Result Diagrams: 01/13/21 08:00 01/12/21 04:50 Labs: Laboratory Results - last 24 hr 01/12/21 01/13/21 01/13/21 23:48 06:29 08:00 WBC 14.8 H RBC 4.59 Hgb 12.7 Hct 40.7 MCV 88.7 MCH 27.7 MCHC 31.2 L RDW Std Deviation 43.6 RDW Coeff of Haleigh 13.4 Plt Count 355 MPV 9.7 Immature Gran % (Auto) 0.500 Neut % (Auto) 74.8 H Lymph % (Auto) 15.7 L [place] % (Auto) 5.2 Eos % (Auto) 3.3 Baso % (Auto) 0.5 Absolute Neuts (auto) 11.1 H Absolute Lymphs (auto) 2.32 Nucleated RBC % 0 POC Glucose 296 H 184 H 01/13/21 01/13/21 10:59 16:16 WBC RBC Hgb Hct MCV MCH MCHC RDW Std Deviation RDW Coeff of Haleigh Plt Count MPV Immature Gran % (Auto) Neut % (Auto) Lymph % (Auto) [place] % (Auto) Eos % (Auto) Baso % (Auto) Absolute Neuts (auto) Absolute Lymphs (auto) Nucleated RBC % POC Glucose 271 H 278 H Physical Exam Const alert, oriented x3 and no apparent distress General Appearance: cooperative, comfortable, well kempt and well developed Orientation / Consciousness: awake, oriented to person, oriented to place and oriented to time HEENT moist oral mucous membranes Head and Scalp: normocephalic Eyes PERRL, EOMs intact bilaterally and conjunctivae normal General Eye: normal appearance of both eyes Periorbital: periorbital findings normal Neck supple and no JVD General: trachea midline Thyroid: thyroid normal Resp normal respiratory effort, no retractions, no use of accessory muscles and clear to auscultation bilaterally Auscultation: Negative for crackles, rales, rhonchi or wheezes Cardio regular rate, regular rhythm, S1 normal heart sound, S2 normal heart sound, no gallops and no clicks Cardio Narrative: Tachycardia. Peripheral Pulses: pulses 2+ throughout GI normal to inspection, nondistended, normoactive bowel sounds, soft to palpation, non-tender and non-distended Auscultation: normoactive bowel sounds Extremity normal to inspection and no clubbing, cyanosis or edema Skin no rashes or lesions noted, no wounds and skin turgor normal General Skin Exam: no breakdown Neuro oriented x3 Sensorium / Orientation: awake and alert Speech: speech normal Motor Exam: strength 5/5 throughout Psych affect normal Assessment & Plan Assessment/Plan (1) Acute colitis: PLAN: #1 ACUTE COLITIS-ETIOLOGY UNKNOWN-CONTINUE IV ANTIBIOTICS, REPEAT CBC TOMORROW, NO CHANGE IN TREATMENT #2 TYPE 2 DIABETES-I HELD BASAL INSULIN TODAY, CONTINUE SLIDING SCALE INSULIN #3 PSORIATIC ARTHRITIS #4 ESSENTIAL HYPERTENSION #5 HYPERLIPIDEMIA
[2021-01-13 21:41] LABS: Bedside Glucose 231 mg/dL (70-110)
[2021-01-14 02:12] VITALS: BP 131/56; PULSE 65; RESP 16; TEMP 36.6; O2SAT 95
[2021-01-14] MEDS: metroNIDAZOLE 500 MG/100 ML BAG 100 MG IV (05:07)
[2021-01-14] MEDS: Insulin Lispro 100 UNIT/ML INSULN.PEN SC (06:18)
[2021-01-14 06:26] LABS: Bedside Glucose 281 mg/dL (70-110)
[2021-01-14 07:17] LABS: Absolute Lymphocyte Count 2.39 X10^3/uL (0.83-4.51); Absolute Neutrophil Count 9.3 X10^3/uL (2.0-7.7); Basophil# 0.06 X10^3/uL; Basophil% 0.5 % (0-1); Eosinophil# 0.46 X10^3/uL; Eosinophils% 3.5 % (0-5); Hematocrit 39.4 % (37-47); Hemoglobin 12.4 g/dL (12.0-15.0); Lymphocyte # 2.39 X10^3/ul (0.83-4.51); Lymphocyte % 18.3 % (19-41); Mean Corp Hgb Conc 31.5 g/dL (32-36); Mean Corpuscular Hgb 28.4 pg (27.0-32.0); Mean Corpuscular Volume 90.4 fL (81-99); Mean Platelet Vol. 10.6 fl (6.2-12.0); Monocyte# 0.69 X10^3/uL; Monocyte% 5.3 % (0-10); NRBC Flagged by Analyzer 0 % (0-5); Neutrophil # 9.34 X10^3/uL (2.7-7.7); Neutrophil % 71.6 % (47-70); Platelet Count 340 K/mm3 (150-450); RBC Distribution Width CV 13.2 % (11.6-14.6); RBC Distribution Width SD 43.8 fl (35.1-43.9); Red Blood Count 4.36 M/mm3 (4.2-5.4)
[2021-01-14 08:18] VITALS: BP 127/68; PULSE 64; RESP 16; TEMP 36.5; O2SAT 95
[2021-01-14 09:24] VITALS: O2SAT 93
[2021-01-14 10:21] VITALS: PULSE 64
[2021-01-14] MEDS: Pantoprazole Sodium 40 MG Tablet PO (10:21)
[2021-01-14] MEDS: Metoprolol Tartrate 25 MG Tablet 75 MG PO (10:21)
[2021-01-14] MEDS: Ciprofloxacin 400 MG/200 ML BAG 200 MG IV (10:21)
[2021-01-14] MEDS: Ramipril 5 MG Capsule PO (10:21)
[2021-01-14] MEDS: DULoxetine Hcl 60 MG Capsule PO (10:22)
--- NOTE | 2021-01-14 10:59 | PCM.DC ---
Discharge Instructions Follow Up Care Test Results: Test results from this visit will be discussed in further detail at your follow-up appointment, if applicable. Discharge Plan Admission Admit Date/Time: 01/11/21 16:29 Primary Reason for Your Visit: colitis Attending Provider: Pablo Carranza Primary Care Provider: Aida Nolan Discharge Orders/Prescriptions Prescriptions: New insulin degludec-liraglutide 100 unit-3.6 mg /mL (3 mL) insulin pen 40 unit subcut DAILY Qty: 15 RF: 0 ciprofloxacin HCl [Cipro] 500 mg tablet 500 mg PO BID Qty: 15 RF: 0 metronidazole [Flagyl] 500 mg tablet 500 mg PO TID Qty: 22 RF: 0 Continued duloxetine 60 mg capsule,delayed release(DR/EC) 60 mg PO DAILY RF: 0 ramipril 5 mg capsule 5 mg PO DAILY Qty: 30 RF: 3 metoprolol tartrate 75 mg tablet 75 mg PO BID Qty: 60 RF: 11 insulin aspart U-100 [Novolog Flexpen U-100 Insulin] 100 UNITS/ML insulin pen 30 - 60 unit subcut TIDCM RF: 0 pantoprazole [Protonix] 40 MG tablet 40 mg PO DAILY RF: 0 Discontinued insulin degludec 200 UNIT/ML insulin pen 120 units SC DAILY RF: 0 Referrals / Follow Up: Aida Noaln DO [Primary Care Provider] - In 1 Week Cecil Us MD [NON-STAFF] - (call to notify him of hospitalization for colitis) Disposition Disposition (needs filled in before D/C Order can be placed): Home, self care
[2021-01-14 11:00] LABS: Bedside Glucose 358 mg/dL (70-110)
--- NOTE | 2021-01-16 17:29 | DS.PCM_ITS ---
Providers Date of Admission: 01/11/21 Date of Discharge: 01/14/21 Primary Care Physician: Dr. Aida Nolan DO Reason For Visit: ACUTE COLITIS, SEPSIS Diagnosis Discharge Diagnosis (1) Acute colitis: Status: Acute Code(s): K52.9 - Noninfective gastroenteritis and colitis, unspecified Plan: #1 ACUTE COLITIS-ETIOLOGY UNKNOWN #2 TYPE 2 DIABETES #3 PSORIATIC ARTHRITIS #4 ESSENTIAL HYPERTENSION #5 HYPERLIPIDEMIA Medications at Discharge Home Medications duloxetine 60 mg capsule,delayed release 60 mg PO DAILY 01/15/18 metoprolol tartrate 75 mg tablet 75 mg PO BID #60 tab 09/12/18 ramipril 5 mg capsule 5 mg PO DAILY #30 cap 09/12/18 insulin aspart U-100 [Novolog Flexpen U-100 Insulin] 30 - 60 unit SUBCUT TIDCM 12/09/20 pantoprazole [Protonix] 40 mg PO DAILY 12/09/20 ciprofloxacin HCl [Cipro] 500 mg PO BID #15 tab 01/14/21 insulin degludec-liraglutide 40 unit SUBCUT DAILY #15 ml 01/14/21 metronidazole [Flagyl] 500 mg PO TID #22 tab 01/14/21 Hospital Course Operations None Procedures None Summary of Care Provided Minutes Spent on Discharge: 33 Hospital Course: This 65-year-old white female was seen in the emergency room [facility] with complaints of lower abdominal pain and pain radiating to the right flank area onset the day before being seen in the emergency room. Patient had some nausea and vomiting also at home. Patient's labs obtained in the emergency room showed a elevated white blood cell count at 18.8, CT of the abdomen pelvis revealed evidence of colitis involving the left hemicolon. She was noted to have bright red blood per rectum on rectal exam with an anoscope. Chemistry profile was remarkable for glucose of 313 but was otherwise normal. Patient was admitted to [place] [id number] and placed on IV an tibiotics, white blood cell count during her hospitalization trended downward. Patient was able to resume diet, her basal insulin was held due to lower blood sugars. On 01/14/2021, patient was seen and examined: On examination she appeared in good health and spirits, she does not appear to be in any distress. Vital signs as documented. Skin warm and dry and without overt rashes. Neck without JVD, thyroid appears normal, trachea is midline, neck is supple. Lungs clear, normal air movement was noted. Heart exam notable for regular rhythm, normal sounds and absence of murmurs, rubs or gallops. Abdomen unremarkable and without evidence of organomegaly, masses, or abdominal aortic enlargement, bowel sounds are present in all 4 quadrants, no abdominal tenderness was noted. Extremities nonedematous, no cyanosis was noted, no clubbing was noted. Neuro: Cranial nerves II through XII are grossly intact, no focal motor deficits were noted, sensation to light touch and pinprick is intact, motor exam 5/5 throughout. Psych: Patient is alert and oriented x3, she does not appear anxious or depres sed, she does not appear agitated. Patient appears stable for discharge on 01/14/2021, the etiology of her colitis was unknown, she was instructed to follow-up with her GI doctor for possible colonoscopy in 2 to 3 weeks. ABG / Lab / Microbiology Data Result Diagrams: 01/14/21 05:45 01/12/21 04:50 Meaningful Use Info Meaningful Use Diagnoses (Choose all that apply): None applicable Discharge Plan Admission Admit Date/Time: 01/11/21 16:29 Primary Reason for Your Visit: colitis Attending Provider: Pablo Carranza Primary Care Provider: Aida Nolan Discharge Orders/Prescriptions Prescriptions: New insulin degludec-liraglutide 100 unit-3.6 mg /mL (3 mL) insulin pen 40 unit subcut DAILY Qty: 15 RF: 0 ciprofloxacin HCl [Cipro] 500 mg tablet 500 mg PO BID Qty: 15 RF: 0 metronidazole [Flagyl] 500 mg tablet 500 mg PO TID Qty: 22 RF: 0 Continued duloxetine 60 mg capsule,delayed release(DR/EC) 60 mg PO DAILY RF: 0 ramipril 5 mg capsule 5 mg PO DAILY Qty: 30 RF: 3 metoprolol tartrate 75 mg tablet 75 mg PO BID Qty: 60 RF: 11 insulin aspart U-100 [Novolog Flexpen U-100 Insulin] 100 UNITS/ML insulin pen 30 - 60 unit subcut TIDCM RF: 0 pantoprazole [Protonix] 40 MG tablet 40 mg PO DAILY RF: 0 Discontinued insulin degludec 200 UNIT/ML insulin pen 120 units SC DAILY RF: 0 Referrals / Follow Up: Aida Nolan DO [Primary Care Provider] - In 1 Week Cecil Us MD [NON-STAFF] - (call to notify him of hospitalization for colitis) Disposition Disposition (needs filled in before D/C Order can be placed): Home, self care Visit Charges Inpatient E&M: 50782 Disch Hosp
--- NOTE | 2021-01-17 15:42 | CASEMGMT ---
KATHERYN BARROSO Discharge Follow-up Phone Call: STARLA: Angelica Strata: 3 Call Date: 01/17/21 Discharge Date: 01/14/21 Time of Call: 1540 Duration: 3 min Admitting Diagnosis: Acute Colitis, Sepsis KAHTERYN BARROSO completed follow-up phone call after recent hospitalization. Patient states she is still tired but doing better. Patient had no questions regarding discharge instructions. Patient was able to fill prescriptions without any issues. Patient has follow-up appt scheduled with PCP. Patient had no further questions or concerns at this time.
== END 2021-01-14 13:00 | disposition home or self-care (01) | DRG 872 ==
LOC: ED 15:27 → MS3 16:50
PROVIDERS: Admitting Provider Hospitalist; Emergency Provider Emergency Medicine; PCP Internal Medicine; Visit Provider Internal Medicine
DX: A41.9 Sepsis, unspecified organism (principal); I47.1 Supraventricular tachycardia; K52.9 Noninfective gastroenteritis and colitis, unspecified; L40.50 Arthropathic psoriasis, unspecified; I25.10 Atherosclerotic heart disease of native coronary artery without angina pectoris; M79.7 Fibromyalgia; E78.5 Hyperlipidemia, unspecified; I10 Essential (primary) hypertension; E11.65 Type 2 diabetes mellitus with hyperglycemia; Z79.899 Other long term (current) drug therapy; Z79.4 Long term (current) use of insulin; Z87.891 Personal history of nicotine dependence; Z85.820 Personal history of malignant melanoma of skin
CPT/HCPCS: 36415; 74177; 80048; 82962; 83605; 85025; 99251; 99285; J7030; Q9967; A4216; G0463; J0744; J2405

== ENCOUNTER 2021-11-17 12:46 | Emergency (ER) | payer MEDICARE, SELFPAY ==
[2021-11-17 12:47] VITALS: BP 184/68; PULSE 67; RESP 16; TEMP 36.6; O2SAT 99; BMI 35.6
--- NOTE | 2021-11-17 13:03 | RAD_ITS ---
STUDY: X-RAY - LUMBAR SPINE REASON FOR EXAM: Female, 66 years old. back pain TECHNIQUE: 3 view(s) of the lumbar spine were obtained. COMPARISON: None FINDINGS: Normal lumbar lordosis. Mild levoscoliosis centered at L4. 6 lumbar type vertebral bodies. There is a normal alignment of the vertebrae. There is multilevel endplate spondylosis of the lumbar vertebrae. There is multi-level degenerative disc disease with multi-level disc space narrowing. Facet hypertrophy in the lower lumbar spine. The soft tissue structures are unremarkable. RAD/Lumbar Spine 2 or 3 Views IMPRESSION: Mild levoscoliosis with diffuse degenerative disc disease. Electronically Signed: Levy Graves MD at 14:37 EDT ,
--- NOTE | 2021-11-17 13:06 | EDS_ITS ---
HPI <LI Saini - Last Filed: 11/17/21 14:52> History of Present Illness Chief Complaint: Other, Pain/Inj Narrative Narrative: 66-year-old female with PMH of HTN, HLD, DM2, GERD presents with multiple complaints. The first is over the last year she has had a knot in her right inguinal region. It is painful if she pushes on it. It is not changed in size but she has not been able to see her doctor for evaluation. Then over the last month she developed pain in her right lower back and right hip. It is worse with standing and walking. No trauma or falls. No radicular pain, weakness, numbness, tingling, saddle anesthesia, or bladder or bowel inco ntinence. She called her doctor to get an appointment today but they could not get her in for 1 week. She has been taking Tylenol. She cannot take NSAIDs due to history of GI bleed. PFS <LI Saini - Last Filed: 11/17/21 14:52> [facility] Medical History (Updated 11/17/21 @ 14:49 by LI Saini) Abnormal nuclear stress test Angina pectoris Atherosclerotic heart disease of [place] coronary artery without angina pectoris CAD (coronary artery disease) Essential hypertension Fibromyalgia HLD (hyperlipidemia) Hypertension IBS (irritable bowel syndrome) Psoriatic arthritis PSVT (paroxysmal supraventricular tachycardia) Type II diabetes mellitus Home Medications duloxetine 60 mg capsule,delayed release 60 mg PO DAILY 01/15/18 [History Last Taken 01/09/21] metoprolol tartrate 75 mg tablet 75 mg PO BID #60 tab 09/12/18 [Rx Last Taken 01/09/21] ramipril 5 mg capsule 5 mg PO DAILY #30 cap 09/12/18 [Rx Last Taken 01/09/21] insulin aspart U-100 [Novolog Flexpen U-100 Insulin] 30 - 60 unit SUBCUT TIDCM 12/09/20 [History Last Taken 01/11/21] pantoprazole [Protonix] 40 mg PO DAILY 12/09/20 [History Last Taken 01/09/21] insulin degludec-liraglutide 40 unit SUBCUT DAILY #15 ml 01/14/21 [Rx Last Taken Unknown] tramadol 50 mg PO Q8H PRN #10 tab 11/17/21 [Rx Last Taken Unknown] Allergy/AdvReac Type Severity Reaction Status Date / Time adhesive tape Allergy Rash Verified 11/17/21 12:48 cefaclor [From Ceclor] Allergy Unknown Verified 11/17/21 12:48 liraglutide [From Victoza] Allergy Upset Verified 11/17/21 12:48 Stomach morphine Allergy my body Verified 11/17/21 12:48 felt like it was on fire; vomiting nalbuphine HCl [From Nubain] Allergy lungs Verified 11/17/21 12:48 froze up omeprazole [From Prilosec] Allergy can't Verified 11/17/21 12:48 remember omeprazole magnesium Allergy Unknown Verified 11/17/21 12:48 [From Prilosec] Penicillins Allergy tightness Verified 11/17/21 12:48 in throat sulfamethoxazole Allergy Unknown Verified 11/17/21 12:48 [From Bactrim] trimethoprim [From Bactrim] Allergy Unknown Verified 11/17/21 12:48 codeine AdvReac hallucinati Verified 11/17/21 12:48 ons Family History (Updated 09/12/18 @ 11:31 by Pat Fuchs) Father Heart disease CVA (cerebral vascular accident) Sister Breast cancer Heart disease Mother Kidney disease Diabetes CHF (congestive heart failure) Sister , age 40 Diabetes Kidney disease Surgical History H/O: hysterectomy History of esophagogastroduodenoscopy (EGD) (~01/2018) History of melanoma excision Hx of dilation and curettage Hx of melanoma excision Social History (Updated 09/12/18 @ 16:16 by Lazarus Edgar MARKETING COMMUNICATIONS MANAGER, MARKETING COMMUNICATIONS MANAGER-C) Smoking Status: Former smoker how long ago did patient quit smokin years ago alcohol intake: never substance use type: does not use caffeine: Yes Type: coffee Number of servings: 3 ROS <LI Saini - Last Filed: 11/17/21 14:52> ROS ED ROS Narrative Constitutional: Negative for fever, chills, malaise. Eyes: Negative for visual change. ENT: Negative for sore throat, ear pain, rhinorrhea. CVS: Negative for palpitations, chest pain, syncope. Respiratory: Negative for shortness of breath, cough, orthopnea. GI: Negative for abdominal pain, nausea, vomiting, diarrhea, constipation, melena, hematochezia. : Negative for dysuria, hematuria or frequency. Neuro: Negative for headache, motor/sensory dysfunction. Skin: Negative for rash, abscess, or wound. Musc: Positive for hip pain. No swelling, trauma. Heme: Negative for easy bruising, bleeding, lymphadenopathy. EXAM <LI Saini - Last Filed: 11/17/21 14:52> Physical Exam Narrative Exam Narrative: CONST: Patient sitting in no acute distress. EYES: Normal inspection. ENT: Normal inspection, moist mucous membranes. NECK: Normal inspection. RESP: No respiratory distress, CTAB. CVS: Regular rate and rhythm, no murmur, no gallop. ABD: Soft and nontender, no guarding or rebound, nondistended, no hepatosplenomegaly. Slight tenderness in the right inguinal region with very small enlarged area that may be a lymph node. No palpable hernia. Back: Normal inspection, no CVA tenderness. No midline spinal tenderness, no step off or crepitus. Tender to palpation over right lumbar paraspinals and iliac crest. SKIN: Color normal, no rash, warm, dry, intact. EXTREMITIES: Normal appearance, no pedal edema. 5/5 bilateral hip flexion, knee flexion/extension, and DF/PF. Normal sensation to light touch. 2+ posterior tibial pulses. Normal gait. NEURO: Oriented x4. PSYCH: Normal affect. Const Vital Signs: 11/17/21 12:47 11/17/21 15:05 Temperature 97.8 F Temperature Source Temporal Pulse Rate 67 71 Respiratory Rate 16 15 Blood Pressure 184/68 H Blood Pressure Mean 106 Pulse Ox 99 99 Oxygen Delivery Method Room Air <Dr. Arsalan Noel DO - Last Filed: 11/17/21 15:32> Physical Exam Const Vital Signs: 11/17/21 12:47 11/17/21 15:05 Temperature 97.8 F Temperature Source Temporal Pulse Rate 67 71 Respiratory Rate 16 15 Blood Pressure 184/68 H Blood Pressure Mean 106 Pulse Ox 99 99 Oxygen Delivery Method Room Air MDM <LI Saini - Last Filed: 11/17/21 14:52> [facility] MDM Narrative Medical decision making narrative: Patient presents with 2 separate complaints. The first is atraumatic right-sided lower back and hip pain. She does have reproducible pain with hip flexion and over the right lumbar paraspinals and iliac crest. No midline spinal tenderness. Lower extremity MSPs and reflexes are intact and she has a normal gait. She has no red flag symptoms concerning for cauda equina or epidural abscess. She has no tenderness of the flank. X- rays of the lumbar spine and right hip show mild degenerative changes with no acute process. UA is negative for infection. She cannot take NSAIDs so I will prescribe a short course of tramadol. Her second complaint was an area of swelling in her right inguinal region that has been there for over a year. On exam there is a very small enlarged area most consistent with a lymph node. There is no hernia. The rest of her abdominal exam is benign. I feel that this can be followed up outpatient with her primary care doctor. Patient was agreeable to this plan and discharged in stable condition. Diagnoses 1. Lumbar degenerative disc disease 2. Right hip pain 3. Right inguinal pain, chronic Lab Data Labs: Laboratory Results - last 24 hr 11/17/21 13:33 Urine Color Yellow Urine Clarity Clear Urine pH 6.5 Ur Specific [place] 1.010 Urine Protein 15 H Urine Glucose (UA) 1000 H Urine Ketones Negative Urine Occult Blood Negative Urine Nitrite Negative Urine Bilirubin Negative Urine Urobilinogen Normal Ur Leukocyte Esterase Negative Urine RBC 0 SEEN Urine WBC 0 SEEN Ur Squamous Epith Cells 0-5 SEEN Urine Bacteria 0 SEEN Urine Mucus 0 SEEN Radiography Diagnostic Testing: Clinical Impression(s) from Imaging Studies Lumbar Spine X-Ray 11/17/21 13:03 IMPRESSION: Mild levoscoliosis with diffuse degenerative disc disease. Electronically Signed: Levy Graves MD at 14:37 EDT Reading Location ID and State: [id number] / [place] Tel , Service support , Hip/Pelvis X-Ray 11/17/21 13:47 IMPRESSION: Normal x-ray examination of the pelvis and hip. Electronically Signed: Levy Graves MD at 14:37 EDT , <Dr. Arsalan Noel, DO - Last Filed: 11/17/21 15:32> [facility] Narrative Medical decision making narrative: Patient was seen with me. I did a [id number] examination with the patient. I agree with the history and physical examination. Patient presents with right inguinal pain and right lower back pain that has been getting worse over the past several weeks. Patient sta pamella she feels a lump in her right groin. Patient states her hip and back pain is worse with certain movements. Patient states she has some pain radiating into her abdomen. Patient denies any nausea or vomiting. Patient denies any diarrhea, melena, or hematochezia. Patient denies any dysuria or hematuria. Patient denies any fevers or chills. Vital signs are stable. Patient is afebrile. Patient is in no acute distress. Oral mucosa is pink and moist. Neck is supple. Trachea is midline. There is no JVD. Heart was regular rate and rhythm. Lungs are clear and equal bilateral. Abdomen is soft. Bowel sounds are normal. There is some mild right upper and right lower quadrant tenderness. There is no rebound or guarding noted. There is no right CVA tenderness. There is some mild tenderness over the right lower lumbar paraspinal muscles. There is no midline tenderness but there is no bony crepitance or step-off. Urinalysis was obtained and was within normal limits. X-rays of the lumbar spine were obtained. There are 3 views. On my interpretation, there are mild degenerative changes. There is no acute fracture or spondylolisthesis. Radiologist also interpreted the x-rays and agrees. X-rays of the right hip and pelvis were obtained. There are 3 views. On my interpretation, there is no acute fracture or dislocation. There is no calcification noted in the right in guinal area. Radiologist also interpreted the x-rays and agrees. Patient was advised of her findings. Patient was advised that her the lump in her right inguinal area may be a swollen lymph node. Patient was instructed to follow-up with her primary care physician for further evaluation. Patient understood and was agreeable with the plan. All questions were answered. Lab Data Attestation: I reviewed the patient's lab results. Labs: Laboratory Results - last 24 hr 11/17/21 13:33 Urine Color Yellow Urine Clarity Clear Urine pH 6.5 Ur Specific [place] 1.010 Urine Protein 15 H Urine Glucose (UA) 1000 H Urine Ketones Negative Urine Occult Blood Negative Urine Nitrite Negative Urine Bilirubin Negative Urine Urobilinogen Normal Ur Leukocyte Esterase Negative Urine RBC 0 SEEN Urine WBC 0 SEEN Ur Squamous Epith Cells 0-5 SEEN Urine Bacteria 0 SEEN Urine Mucus 0 SEEN Radiography Diagnostic Testing: Clinical Impression(s) from Imaging Studies Lumbar Spine X-Ray 11/17/21 13:03 IMPRESSION: Mild levoscoliosis with diffuse degenerative disc disease. Electronically Signed: Levy Graves MD at 14:37 EDT , Hip/Pelvis X-Ray 11/17/21 13:47 IMPRESSION: Normal x-ray examination of the pelvis and hip. Electronically Signed: Levy Graves MD at 14:37 EDT Reading Location ID and State: [id number] / [place] Tel , Service support , Discharge Plan Triage Chief Complaint: Other, Pain/Inj Dx/Rx/DC Orders Clinical Impression: DDD (degenerative disc disease), lumbar, Acute pain of right hip Instructions: Hip Osteoarthritis, ED Degenerative Disk Disease Prescriptions: New tramadol 50 mg tablet 50 mg PO Q8H PRN (Reason: pain) Qty: 10 RF: 0 No Action duloxetine 60 mg capsule,delayed release(DR/EC) 60 mg PO DAILY RF: 0 ramipril 5 mg capsule 5 mg PO DAILY Qty: 30 RF: 3 metoprolol tartrate 75 mg tablet 75 mg PO BID Qty: 60 RF: 11 insulin aspart U-100 [Novolog Flexpen U-100 Insulin] 100 UNITS/ML insulin pen 30 - 60 unit subcut TIDCM RF: 0 pantoprazole [Protonix] 40 MG tablet 40 mg PO DAILY RF: 0 insulin degludec-liraglutide 100 unit-3.6 mg /mL (3 mL) insulin pen 40 unit subcut DAILY Qty: 15 RF: 0 Primary Care Provider: Aida Nolan Referrals: Aida Nolan DO [Primary Care Provider] - Activity Restrictions/Additional Instructions: I prescribed tramadol for pain. Your back and hip pain is most likely due to degenerative disc disease and arthritis. Please follow-up with your doctor next week at your scheduled appointment. Disposition Disposition: Home, Self Care Discharge Date/Time: 11/17/21 15:05
[2021-11-17 13:39] LABS: Bacteria 0 SEEN /hpf (None Seen); Mucous, Urine 0 SEEN /hpf (<or=2+); Red Blood Cells-Urine 0 SEEN /hpf (0-5); White Blood Cells 0 SEEN /hpf (0-5)
[2021-11-17 13:45] LABS: Color, Urine Yellow (Yellow); Glucose, Dipstick 1000 mg/dl (Normal); Ketone-Dipstick Negative (Negative); Leukocyte Esterase-Dipstick Negative /ul (Negative); Nitrite-Dipstick Negative (Negative); Occult Blood-Urine Negative /ul (Negative); Protein-Dipstick 15 mg/dl (Negative); Urine Bilirubin Dipstick Negative (Negative); Urine Clarity Clear (Clear); Urine Urobilinogen Normal (Normal); Urine pH 6.5 (5.0 - 8.0)
--- NOTE | 2021-11-17 13:47 | RAD_ITS ---
STUDY: X-RAY - PELVIS AND RIGHT HIP REASON FOR EXAM: Female, 66 years old. Injury/Pain TECHNIQUE: 3 views of the pelvis and hip. COMPARISON: 09/22/2015 FINDINGS: There is a non-specific bowel gas pattern. Normal visualized soft tissue structures. Normal bilateral iliac wings, sacroiliac joints and visualized sacrum. Normal bilateral superior and inferior pubic rami. Normal pubic symphysis. Normal bilateral ischial tuberosities. Normal visualized femoral head. Normal acetabulum. Normal hip joint. RAD/HIP, UNI W/ Pelvis 2-3 Views IMPRESSION: Normal x-ray examination of the pelvis and hip. Electronically Signed: Levy Graves MD at 14:37 EDT ,
[2021-11-17 13:52] LABS: Squamous Epithelial Cells - UA 0-5 SEEN /hpf (5-10)
[2021-11-17 15:05] VITALS: PULSE 71; RESP 15; O2SAT 99
== END 2021-11-17 15:05 | disposition home or self-care (01) ==
PROVIDERS: PCP Internal Medicine; Visit Provider Physician Assistant
DX: M51.36 Other intervertebral disc degeneration, lumbar region (principal); E11.9 Type 2 diabetes mellitus without complications; Z79.4 Long term (current) use of insulin; M25.551 Pain in right hip; I25.10 Atherosclerotic heart disease of native coronary artery without angina pectoris; I10 Essential (primary) hypertension; Z87.891 Personal history of nicotine dependence; Z79.899 Other long term (current) drug therapy
CPT/HCPCS: 72100; 73502; 81001; 99282

== ENCOUNTER → 2022-06-28 | Outpatient (CLI) | payer MEDICARE, SELFPAY ==
[2022-06-28 16:54] LABS: Absolute Lymphocyte Count 3.71 X10^3/uL (0.83-4.51); Absolute Neutrophil Count 11.6 X10^3/uL (2.0-7.7); Basophil% 0.6 % (0-1); Eosinophils% 2.9 % (0-5); Hematocrit 48.5 % (37-47); Hemoglobin 15.1 g/dL (12.0-15.0); Lymphocyte # 3.71 X10^3/ul (0.83-4.51); Lymphocyte % 21.6 % (19-41); Mean Corp Hgb Conc 31.1 g/dL (32-36); Mean Corpuscular Hgb 25.9 pg (27.0-32.0); Mean Corpuscular Volume 83.3 fL (81-99); Mean Platelet Vol. 9.9 fl (6.2-12.0); Monocyte# 1.11 X10^3/uL; Monocyte% 6.5 % (0-10); NRBC Flagged by Analyzer 0 % (0-5); Neutrophil # 11.61 X10^3/uL (2.7-7.7); Neutrophil % 67.5 % (47-70); Platelet Count 449 K/mm3 (150-450); RBC Distribution Width CV 14.6 % (11.6-14.6); RBC Distribution Width SD 44.2 fl (35.1-43.9); Red Blood Count 5.82 M/mm3 (4.2-5.4); White Blood Count 17.2 K/mm3 (4.4-11.0)
[2022-06-28 17:14] LABS: AST(SGOT) 12 U/L (15-37); Alanine Aminotransfer ALT/SGPT 22 U/L (13-56); Albumin, Serum 3.9 g/dL (3.2-5.0); Alkaline Phosphatase 134 U/L (45-117); Anion Gap 4 (5-15); BUN 22 mg/dL (7-18); BUN/Creat Ratio 24.7 RATIO (10-20); Calcium,Total 9.6 mg/dL (8.5-10.1); Chloride 105 mmol/L (98-107); Creatinine, Serum 0.89 mg/dL (0.55-1.02); EST Glomerular Filtration Rate 68 mL/min (>60); Est Glom Filt Rate - Afr Amer 82 mL/min (>60); Glucose 90 mg/dL (74-106); Potassium 3.7 mmol/L (3.5-5.1); Protein, Total 7.9 g/dL (6.4-8.2); Sodium Level 139 mmol/L (136-145); Troponin-I HS 4 pg/mL (3.0-54.0)
[2022-06-28 17:56] LABS: D-Dimer Quantitative (DVT/PE) 0.42 FEU/ug/m (0.27-0.49)
== END | disposition home or self-care (01) ==
LOC: LAB 16:32
PROVIDERS: PCP Internal Medicine; Visit Provider Internal Medicine
DX: R06.02 Shortness of breath (principal); R11.0 Nausea; R07.9 Chest pain, unspecified
CPT/HCPCS: 36415; 80053; 84484; 85025; 85379

== ENCOUNTER → 2022-11-02 | Outpatient (CLI) | payer MEDICARE, SELFPAY ==
--- NOTE | 2022-11-02 12:09 | ECHOD_ITS ---
Reason For Study: CHEST PAIN Procedure This was a 2D Doppler, Color Flow transthoracic echocardiogram. Exam performed in department. Left Ventricle Normal size and thickness. The left ventricular ejection fraction is 65 %. Diastolic function is indeterminate. Right Ventricle Normal right ventricle. Atria The left and right atria are normal. Mitral Valve Trivial mitral valve insufficiency. Tricuspid Valve Right ventricular systolic pressure estimated to be 37 mmHg. Mild tricuspid valve insufficiency. Aortic Valve Aortic sclerosis, no stenosis. Pulmonic Valve The pulmonic valve is not well visualized. Great Vessels Normal sized aortic root. Pericardium/Pleural No pericardial effusion. MMode/2D Measurements & Calculations LVIDd: 5.3 cm IVSd: 0.78 cm Ao root diam: 2.3 cm LVIDs: 3.2 cm LVPWd: 0.91 cm FS: 39.1 % LAV(MOD-bp): 64.8 ml LVAd ap4: 21.8 cm2 SV(MOD-sp4): 34.0 ml LAV(MOD-bp) Indexed: 34.7 ml/m2 LVLd ap4: 7.1 cm LAV(MOD-sp2): 49.8 ml EDV(MOD-sp4): 55.7 ml LAV(MOD-sp4): 68.3 ml EDV(sp4-el): 56.9 ml LVAs ap4: 12.0 cm2 LVLs ap4: 5.7 cm ESV(MOD-sp4): 21.7 ml ESV(sp4-el): 22.0 ml EF(MOD-sp4): 61.0 % EF(sp4-el): 61.3 % SV(sp4-el): 34.9 ml LA A4 area: 23.7 cm2 LA dimension(2D): 3.8 cm RA A4 area: 17.6 cm2 Time Measurements MV dec time: 0.25 sec Doppler Measurements & Calculations MV E max jorge: 115.7 cm/sec Lat Peak E' Jorge: 8.2 cm/sec Med Peak E' Jorge: 9.9 cm/sec MV A max jorge: 94.9 cm/sec E/E' lat: 14.2 E/E' med: 11.7 MV E/A: 1.2 MV V2 max: 118.8 cm/sec Ao V2 max: 128.3 cm/sec MV max P.7 mmHg MV dec slope: 455.3 cm/sec2 Ao max P.6 mmHg MV V2 mean: 65.1 cm/sec Ao V2 mean: 88.5 cm/sec MV mean P.1 mmHg Ao mean P.6 mmHg MV V2 VTI: 36.0 cm Ao V2 VTI: 30.7 cm AV (velocity ratio): 0.80 LV V1 max: 105.9 cm/sec PA V2 max: 102.8 cm/sec TR max jorge: 284.5 cm/sec LV V1 max P.5 mmHg PA V2 mean: 73.7 cm/sec TR max P.4 mmHg LV V1 mean P.4 mmHg LV V1 mean: 72.3 cm/sec LV V1 VTI: 24.6 cm ECHO/Echo Complete Interpretation Summary The left ventricular ejection fraction is 65 %. Diastolic function is indeterminate. Right ventricular systolic pressure estimated to be 37 mmHg. Mild tricuspid valve insufficiency. Ordering Physician: Nitin Phelan Referring Physician: Nitin Phelan Performed By: Louise Urban RCS
== END | disposition home or self-care (01) ==
LOC: CVS 12:00
PROVIDERS: PCP Internal Medicine; Referring Provider Internal Medicine Cardiovascular Disease; Visit Provider Internal Medicine Cardiovascular Disease
DX: R07.9 Chest pain, unspecified (principal)
CPT/HCPCS: 93306

== ENCOUNTER 2022-11-08 10:34 | Observation (INO) | payer MEDICARE, SELFPAY ==
[2022-11-02 12:41] LABS: Hemoglobin 14.9 g/dL (12.0-15.0); Mean Corp Hgb Conc 31.7 g/dL (32-36); Mean Corpuscular Hgb 26.2 pg (27.0-32.0); Mean Corpuscular Volume 82.7 fL (81-99); Platelet Count 396 K/mm3 (150-450); RBC Distribution Width CV 14.4 % (11.6-14.6); RBC Distribution Width SD 43.2 fl (35.1-43.9); Red Blood Count 5.68 M/mm3 (4.2-5.4); White Blood Count 13.6 K/mm3 (4.4-11.0)
[2022-11-02 12:51] LABS: Prothrombin Time (Protime)PT. 13.3 SECONDS (11.7-14.9)
[2022-11-02 12:52] LABS: Partial Thromboplast Time 26.8 Seconds (24.1-36.2)
--- NOTE | 2022-11-02 13:15 | RAD_ITS ---
STUDY: X-RAY CHEST REASON FOR EXAM: Female, 67 years old. Shortness of breath. Preoperative evaluation for heart catheterization. TECHNIQUE: Frontal and lateral views of the chest. COMPARISON: December 2020. FINDINGS: The lungs are clear and expanded. There is no demonstrated pleural abnormality. Stable cardiomegaly. Normal mediastinum and kala. Normal visualized pulmonary arteries. Stable aortic tortuosity with calcification. Diffuse thoracic spondylosis. Normal visualized ribs, clavicles, and shoulders. There is no demonstrated abnormality of the visualized soft tissue structures of the upper abdomen. RAD/Chest PA and Lateral IMPRESSION: Stable chest. No acute or active cardiopulmonary disease. Electronically Signed: Maurilio Desouza, at 9:19 EST ,
[2022-11-02 13:19] LABS: Anion Gap 8 (5-15); BUN 20 mg/dL (7-18); BUN/Creat Ratio 22.2 RATIO (10-20); Calcium,Total 9.6 mg/dL (8.5-10.1); Chloride 103 mmol/L (98-107); Cholesterol 306 mg/dL (200); EST Glomerular Filtration Rate 67 mL/min (>60); Est Glom Filt Rate - Afr Amer 81 mL/min (>60); Glucose 147 mg/dL (74-106); High Density Lipoprotein 34 mg/dL; Potassium 4.1 mmol/L (3.5-5.1); Sodium Level 137 mmol/L (136-145); Triglycerides 193 mg/dL; Very Low Density Lipoprotein 39 mg/dL (5-40)
[2022-11-07 08:09] VITALS: BMI 34.5
[2022-11-08] VITALS (7 sets, daily range): BP systolic 105–134; BP diastolic 54–61; PULSE 56–67; RESP 12–16; TEMP 36.7–36.8; O2SAT 94–98
--- NOTE | 2022-11-08 10:56 | CL.I_ITS ---
Patient Name: SINAN DEE Study Date: 11/08/2022 Performing: Nitin Phelan MD Ht: 62 inches 157.48 cm : 1955 Wt: 189 lbs 85.73 kg Age: 67 Gender: female BSA: 1.87 PROCEDURE(S) PERFORMED DC02-(00728)LHC/COR IC12-(63900/C9600)HERMINIA W/WO PTCA, SINGLE CORONARY ARTERY CLINICAL PROFILE AND CO-MORBIDITIES Indications: Worsening Angina Heart Failure: None Stress/Imaging Stress/Image Study Performed: No Angina Classification Anginal Classification w/in 2 Weeks: CCS III CAD Presentations: Unstable angina. CONCLUSIONS 95% Mid RCA; 40% ostial RCA 60% Prox OM1; 90% ostial/Prox Lat OM1 40% Prox LAD LVEDP 30 mm Hg Successful PTCA/HERMINIA Mid RCA using Resolute Placido 3.0x22 mm RECOMMENDATIONS ASA Indefinitley Plavix for at least 12 months Maximize medical management; If still symptomatic, then possible PCI to OM1/Lat OM1 DESCRIPTION OF PROCEDURE The patient arrived to the procedure lab. The risks and benefits of the procedure as well as a full description of our services here and lack of surgical backup were fully explained to the patient and/or their significant other prior to the catheterization. The Timeout was completed, verifying the correct patient and procedure. The patient's procedural site was prepped and draped in the usual fashion. Local anesthetic was given subcutaneously to right radial region with Lidocaine 2%. Using a modified Seldinger technique, arterial access was obtained via the right radial artery, a 6Fr sheath was inserted.. Right Coronary Artery selective angiography was then performed in multiple views using a 5 Fr. 4.0 [place] catheter. Left Coronary Artery selective angiography was performed in multiple views using a 5 Fr. JL3.5 catheterThe images were reviewed and options discussed. A decision was then made to proceed with an Intervention, IVUS or other adjunct procedure. JR4 Guide catheter was inserted and engaged into the RCA. RUNTHROUGH Guide wire was advanced to the RCA. 2.5X15 EMERGE Balloon catheter was inserted. Balloon catheter was advanced across lesion in the right coronary, mid. PTCA balloon inflated at 6 atms for 10 secs. PTCA balloon inflated at 6 atms for 8 secs. Angiogram performed post balloon dilatation. 3.0X22 RESOLUTE Drug Eluting stent was inserted. Drug Eluting stent was advanced across the lesion in the right coronary, mid. Angiogram performed pre stent deployment. Angiogram performed post stent deployment. 3.0X20 NC EMERGE Balloon catheter was inserted. Balloon catheter was inserted post stent. Angiogram performed pre balloon dilatation. Angiogram performed post balloon dilatation. The arterial sheath was pulled and a TR Band was applied for hemostasis - 12cc air CORONARY ANGIOGRAPHY DOMINANCE: Right Dominant LEFT HEART ASSESSMENT LVEDP: 30 mmHg LEFT ANTERIOR DESCENDING ARTERY: LAD: Tubular 40% Proximal lesion in LAD CIRCUMFLEX ARTERY: CIRCUMFLEX: Tubular 50% Mid lesion in Circumflex OM 1: Tubular 60% Proximal lesion in MARG1 OM 2: Tubular 60% Proximal lesion in MARG1 RIGHT CORONARY ARTERY: RCA: Tubular 40% Ostial lesion in RCA Tubular 95% Mid lesion in RCA INTERVENTION INFORMATION LESION SITE: RCA (Mid) Lesion Complexity: Non-High/Non-C, lesion length: 20 mm Pre Stenosis: 95 % Pre intervention ELLA flow: 3 PROCEDURE: Drug Eluting Stent with pre and post dilatation Post Stenosis: 0 % Post intervention ELLA flow: 3 Lesion Devices: Cordis 6 Fr JR4 100cm Guide Catheter Terumo .014 180cm Runthrough Extra Floppy straight Garret Sci EMERGE MR 2.50x15 BALLOON Medtronic Resolute [place] RX HERMINIA 3.0x22 Garret Sci NC EMERGE MR 3.00x20 BALLOON COMPLICATIONS No Complications PROCEDURE MEDICATIONS Versed 1 mg IV Versed 1 mg IV Versed 1 mg IV Oxygen: 2 L/min via nasal cannula Brilinta 180 mg PO @ 11/08/2022 10:07:51 Heparin 6000 unit(s) IV 11/08/2022 10:13:09 Heparin 2000 unit(s) IV 11/08/2022 10:23:10 Nitro 200 mcg IC 11/08/2022 10:17:33 Nitro 200 mcg IC 11/08/2022 10:17:33 IV Bolus: .9 NaCl 250 ml total 11/08/2022 09:57:48 IV Fluids: .9 NaCl increased to 100 ml/hr 11/08/2022 10:26:44 SUMMARY OF HEMODYNAMIC DATA Time AIR REST ECG 07:49:36 LV 155/21, 30 09:59:54 LV 158/21, 29 10:00:03 LVp 159/19, 10:00:06 AOp 150/74 (94) 10:00:13 AO 165/87 (112) SA 10:05:01 AIR REST 10:45:29 Signed By Nitin Phelan MD On 11/08/2022 10:55:48 Nitin Phelan MD
[2022-11-08] MEDS: 0.9% Normal Saline 1,000 ML 150 ML IV (11:15)
[2022-11-08 12:11] LABS: Bedside Glucose 87 mg/dL (74-106)
--- NOTE | 2022-11-08 12:18 | CRPHASE1 ---
Patient Communication Former Patient:: Phase I Guide to Cardiac Rehab Given to Patient:: Yes Cardiac Rehab Facility Choice List Given to Patient:: Yes Painter Airbrush:: Nitin Phelan Cardiac Rehabilitation Info Cardiac Rehabilitation Program Information: Cardiac Rehab The cardiac rehab team at [facility] consists of highly skilled exercise physiologists, nurses, respiratory therapists and physicians working together with you. Our purpose is to help you have a full recovery and achieve the goals you set for yourself. Over the years many of our patients have returned to activities they assumed they would never do again! We can help restore your confidence and motivation to make lifestyle changes that can have a significant impact on your health and quality of life! We can help answer questions and concerns you may have about exercise, lifestyle, medications, diet, stress and anxiety which are common following a hospitalization. WE monitor ECG and vital signs during exercise and discuss your progress with you and report to your physician(s). Cardiac Rehab is proven to help reduce readmissions, improve functional capacity and lower recurrence of problems with your heart. Our Cardiac Rehab program is Certified by the [place] [employer] Cardio-Vascular and Pulmonary Rehabilitation (AACVPR) and Accredited by the [place] [employer] through our [facility]. You can contact us at . We invite you to call us with your questions or to get started in our program. If you have other questions or concerns be sure to ask your physician/provider during your follow-up visit. WE look forward to seeing you!
--- NOTE | 2022-11-08 12:20 | CRPH1.INSTRU ---
General Education CAD and cardiac anatomy and function:: Patient communicates acknowledgment Explanation of diagnoses and procedures:: Patient communicates acknowledgment Sign/Symptoms of [place]:: Patient communicates acknowledgment Antiplatelet therapy: Patient communicates acknowledgment Dyslipidemia Dyslipidemia Response Code:: Patient communicates acknowledgment Overweight/Obesity Patient Overweight/Obesity Risk Factors Are:: Obesity - > or = 30 Recommendations Include:: Exercise 5-7 times/week Overweight/Obesity:: Patient communicates acknowledgment Hypertension Recommendations Include:: BP <130/80 if diabetic Hypertension:: Patient communicates acknowledgment Heart Disease Patient Heart Disease Risk Factors Are:: Family history of heart disease < 65 years old Heart Disease Response Code:: Patient communicates acknowledgment Diabetes Patient Diabetes Risk Factors Are:: Elevated blood sugars Diabetes:: Patient communicates acknowledgment Stress Patient Stress Risk Factors Are:: Patient denies stress as a risk factor Stress Response Code:: Patient communicates acknowledgment
[2022-11-08 15:09] LABS: ACT Activated Clotting Time 299 sec (74-137)
[2022-11-08] MEDS: Clopidogrel Bisulfate 300 MG Tablet PO (16:39)
[2022-11-08 17:01] LABS: Bedside Glucose 191 mg/dL (74-106)
[2022-11-08] MEDS: Insulin Lispro 100 UNIT/ML INSULN.PEN SC (17:24)
[2022-11-08] MEDS: Atorvastatin Calcium 40 MG Tablet PO (21:30)
[2022-11-08 22:10] LABS: Bedside Glucose 163 mg/dL (74-106)
[2022-11-08] MEDS: Insulin Glargine-YFGN 100 UNIT/ML Pen 120 UNIT SC (22:25)
[2022-11-09 04:06] VITALS: BP 134/59; PULSE 66; RESP 16; TEMP 36.8; O2SAT 96
[2022-11-09 05:26] LABS: Hematocrit 45.3 % (37-47); Hemoglobin 14.5 g/dL (12.0-15.0); Mean Corpuscular Hgb 26.8 pg (27.0-32.0); Mean Corpuscular Volume 83.6 fL (81-99); Mean Platelet Vol. 10.2 fl (6.2-12.0); Platelet Count 363 K/mm3 (150-450); RBC Distribution Width CV 14.4 % (11.6-14.6); RBC Distribution Width SD 43.6 fl (35.1-43.9); Red Blood Count 5.42 M/mm3 (4.2-5.4); White Blood Count 14.1 K/mm3 (4.4-11.0)
[2022-11-09 05:52] LABS: ALB/GLOB Ratio 0.9 RATIO (0.9-2.4); AST(SGOT) 11 U/L (15-37); Alanine Aminotransfer ALT/SGPT 21 U/L (13-56); Albumin, Serum 3.2 g/dL (3.2-5.0); Alkaline Phosphatase 105 U/L (45-117); Anion Gap 10 (5-15); BUN 19 mg/dL (7-18); BUN/Creat Ratio 21.6 RATIO (10-20); Chloride 105 mmol/L (98-107); Creatinine, Serum 0.88 mg/dL (0.55-1.02); EST Glomerular Filtration Rate 68 mL/min (>60); Est Glom Filt Rate - Afr Amer 83 mL/min (>60); Estimated Creatinine Clearance 50.41 ml/min; Globulin 3.4 g/dL (2.2-4.2); Glucose 177 mg/dL (74-106); Potassium 4.1 mmol/L (3.5-5.1); Protein, Total 6.6 g/dL (6.4-8.2); Sodium Level 138 mmol/L (136-145)
[2022-11-09 08:37] VITALS: O2SAT 95
--- NOTE | 2022-11-09 08:59 | PN.CARD_ITS ---
Subjective Subjective Doing good. Reports resolution of her angina. No complaints. Objective Data Vital Signs: Vital Signs Temp Pulse Resp BP Pulse Ox O2 Del Method 98.3 F 66 16 134/59 H 95 Room Air 11/09/22 04:06 11/09/22 04:06 11/09/22 04:06 11/09/22 04:06 11/09/22 08:37 11/09/22 08:37 Oxygen Delivery Method Room Air Weight: 189 lb Body Mass Index (BMI) 34.5 Intake & Output: Intake and Output for Last 24 Hours 11/07/22 11/08/22 11/09/22 23:59 23:59 23:59 Intake Total 1360 / 1660 600 / 600 Balance 1360 / 1660 600 / 600 Lab / Micro Data Result Diagrams: 11/09/22 04:10 11/09/22 04:10 Labs: Laboratory Results - last 24 hr 11/08/22 10:35: Activated Clotting Time 299 H 11/08/22 11:49: POC Glucose 87 11/08/22 16:38: POC Glucose 191 H 11/08/22 21:28: POC Glucose 163 H 11/09/22 04:10: WBC 14.1 H, RBC 5.42 H, Hgb 14.5, Hct 45.3, MCV 83.6, MCH 26.8 L , MCHC 32.0, RDW Std Deviation 43.6, RDW Coeff of Haleigh 14.4, Plt Count 363, MPV 10.2 11/09/22 04:10: Sodium 138, Potassium 4.1, Chloride 105, Carbon Dioxide 23.0, Anion Gap 10, BUN 19 H, Creatinine 0.88, Estim Creat Clear Calc 50.41, Est GFR (MDRD) Af Amer 83, Est GFR (MDRD) Non-Af 68, BUN/Creatinine Ratio 21.6 H, Glucose 177 H, Calcium 9.0, Total Bilirubin 0.40, AST 11 L, ALT 21, Alkaline Phosphatase 105, Total Protein 6.6, Albumin 3.2, Globulin 3.4, Albumin/Globulin Ratio 0.9 Rhythm Strip Rhythm Strip: Sinus Rhythm Cardiology Labs/Tests 11/09/22 04:10: WBC 14.1 H, RBC 5.42 H, Hgb 14.5, Hct 45.3, MCV 83.6, MCH 26.8 L , MCHC 32.0, Plt Count 363, MPV 10.2 11/09/22 04:10: Sodium 138, Potassium 4.1, Chloride 105, Carbon Dioxide 23.0, Anion Gap 10, BUN 19 H, Creatinine 0.88, Est GFR (MDRD) Af Amer 83, Est GFR (MDRD) Non-Af 68, BUN/Creatinine Ratio 21.6 H, Glucose 177 H, Calcium 9.0, Total Bilirubin 0.40 Rhythm: EKG: Sinus rhythm ECHO: Stress Test: Cardiac Cath: PCI: CT Surgery: Holter monitor: EPS: PPM: CXR: Chest CT Scan: Physical Exam Narrative Comfortable. Heart sounds 1 and 2 regular rate and rhythm. Chest clear to auscultation bilaterally. Alert oriented x3. Right radial pulse 2+. Assessment & Plan Assessment/Plan (1) CAD (coronary artery disease): QUALIFIERS: Coronary Disease-Associated Artery/Lesion type: ely [place] artery PLAN: Status post PCI to 95-99% mid RCA. Complete resolution of symptoms. Continue aspirin lifelong. Plavix treatment for at least 1 year. (2) HTN (hypertension): QUALIFIERS: Hypertension type: essential hypertension Qualified Code(s): I10 - Essential (primary) hypertension PLAN: Improved. Continue to monitor. (3) Type II diabetes mellitus: QUALIFIERS: Diabetes mellitus complication status: with other specified complication Diabetes mellitus termite renewal inspector insulin use: with termite renewal inspector use Qualified Code(s): E11.69 - Type 2 diabetes mellitus with other specified complication; Z79.4 - buttermilk drier operator (current) use of insulin PLAN: As per PCP. (4) HLD (hyperlipidemia): QUALIFIERS: Hyperlipidemia type: unspecified Qualified Code(s): E78.5 - Hyperlipidemia, unspecified PLAN: Atorvastatin. PLAN: Plan Discharge home today. Follow-up as outpatient.
--- NOTE | 2022-11-09 09:11 | DCINST_ITS ---
Discharge Instructions Activity Discharge Activity: Return to Normal Activity Follow Up Care Test Results: Test results from this visit will be discussed in further detail at your follow- up appointment, if applicable. Discharge Plan Admission Admit Date/Time: 11/08/22 10:34 Attending Provider: Nitin Phelan Primary Care Provider: Aida Nolan Discharge Orders/Prescriptions Prescriptions: New atorvastatin 40 mg Tablet 40 mg PO QHS Qty: 30 11RF amlodipine 2.5 mg Tablet 5 mg PO DAILY PRN (Reason: hypertension) Qty: 60 6RF clopidogrel 75 mg Tablet 75 mg PO DAILY Qty: 60 6RF Continued ramipril 5 mg capsule 5 mg PO DAILY Qty: 30 3RF Label Comments: blood pressure sertraline 50 mg tablet 50 mg PO DAILY insulin degludec [Tresiba FlexTouch U-200] 200 unit/mL (3 mL) insulin pen 120 unit subcut QHS Jardiance 25 mg tablet 25 mg PO DAILY metoprolol tartrate 50 mg tablet 50 mg PO DAILY cholecalciferol (vitamin D3) 125 mcg (5,000 unit) capsule 250 mcg PO DAILY aspirin [Adult Aspirin Regimen] 81 mg tablet,delayed release (DR/EC) 81 mg PO DAILY Qty: 90 11RF nitroglycerin 0.4 mg tablet, sublingual 0.4 mg sublingual Q5M PRN (Reason: chest pain) Qty: 14 6RF Rx Instructions: do not exceed 3 doses per episode insulin aspart U-100 [Novolog FlexPen U-100 Insulin] 100 unit/mL (3 mL) insulin pen 30 - 70 unit subcut TIDCM Label Comments: TAKE DIRECTED BEFORE MEAL(S) 140-169 30 UNITS, 170-200 40 UNITS, 201-250 50 UNITS, 251- 300 70 UNITS. MAX DAILY DOSE IS 180 UNITS Rx Instructions: 30 to 70 units per meal (see pt comments). Discontinued amlodipine 2.5 mg tablet 2.5 mg PO DAILY Qty: 30 6RF Referrals / Follow Up: Aida Nolan DO [Primary Care Provider] - Disposition Disposition (needs filled in before D/C Order can be placed): Home, Self Care
[2022-11-09] MEDS: Insulin Lispro 100 UNIT/ML INSULN.PEN SC (09:12)
[2022-11-09 09:14] VITALS: BP 122/55; PULSE 66; RESP 16; TEMP 36.9; O2SAT 99
[2022-11-09] MEDS: Ramipril 5 MG Capsule PO (09:18)
[2022-11-09] MEDS: Clopidogrel Bisulfate 75 MG Tablet PO (09:18)
[2022-11-09] MEDS: Cholecalciferol (Vit D3) 125 MCG CAPSULE (5,000 UNITS) 250 MCG PO (09:19)
[2022-11-09] MEDS: Aspirin E.C. 81 MG Tablet PO (09:19)
[2022-11-09] MEDS: amLODIPine 2.5 MG Tablet 5 MG PO (09:19)
[2022-11-09] MEDS: Sertraline 50 MG Tablet PO (09:20)
[2022-11-09] MEDS: Empagliflozin 25 MG Tablet PO (09:20)
[2022-11-09 10:47] VITALS: BP 122/55; PULSE 66; RESP 16; TEMP 36.9; O2SAT 99
[2022-11-10 09:00] LABS: Bedside Glucose 168 mg/dL (74-106)
== END 2022-11-09 09:11 | disposition home or self-care (01) ==
LOC: PCU 10:57
PROVIDERS: Admitting Provider Internal Medicine Cardiovascular Disease; PCP Internal Medicine; Visit Provider Internal Medicine Cardiovascular Disease
DX: I25.110 Atherosclerotic heart disease of native coronary artery with unstable angina pectoris (principal); E11.51 Type 2 diabetes mellitus with diabetic peripheral angiopathy without gangrene; Z79.4 Long term (current) use of insulin; I10 Essential (primary) hypertension; E78.5 Hyperlipidemia, unspecified; Z79.82 Long term (current) use of aspirin; Z79.899 Other long term (current) drug therapy; Z87.891 Personal history of nicotine dependence; F32.A Depression, unspecified; R06.02 Shortness of breath
CPT/HCPCS: 36415; 71046; 80048; 80053; 80061; 82962; 85027; 85347; 85610; 85730; 92928; 93005; 93454; 96360; 96361; 99152; 99153; 99221; J7030; J7040; Q9967; C1725; C1769; C1874; C1887; C1894; C9600; G0378

== ENCOUNTER 2022-12-08 11:37 | Observation (INO) | payer MEDICARE, SELFPAY ==
[2022-12-07 07:49] VITALS: BMI 34.4
--- NOTE | 2022-12-08 11:54 | CL.I_ITS ---
Patient Name: SINAN DEE Study Date: 12/08/2022 Performing: Ht: 62 inches 157.48 cm : 1955 Wt: 188.01 lbs 85.28 kg Age: 67 Gender: female BSA: 1.86 PROCEDURE(S) PERFORMED IC13-(51209/C9600)HERMINIA W/WO PTCA, EACH ADD'L ART, SAME MAJOR CLINICAL PROFILE AND CO-MORBIDITIES Indications: Stable Known CAD Heart Failure: None Angina Classification Anginal Classification w/in 2 Weeks: CCS II CAD Presentations: Stable angina. CONCLUSIONS RECOMMENDATIONS ASA Indefinitley Plavix for at least 12 months DESCRIPTION OF PROCEDURE The patient arrived to the procedure lab. The risks and benefits of the procedure as well as a full description of our services here and current unavailability of surgical backup were fully explained to the patient and/or their significant other prior to the catheterization. The Timeout was completed, verifying the correct patient and procedure. The patient's procedural site was prepped and draped in the usual fashion. Local anesthetic was given subcutaneously to right radial region with Lidocaine 2% Using a modified Seldinger technique,arterial access was obtained via the right radial artery, a 6Fr sheath was inserted. . XB3 Guide catheter was inserted and engaged into the LCA. Runthrough Guide wire was advanced to the Circumflex. Runthrough (2) Guide wire was advanced to the 1st OM. Euphora 2.0 x 12 Balloon catheter was inserted. Balloon catheter was advanced across lesion in the first obtuse marginal, ostial. PTCA balloon inflated at 8 atms for 24 secs. Angiogram performed post balloon dilatation. PTCA balloon inflated at 10 atms for 37 secs. Angiogram performed post balloon dilatation. NC Emerge 2.5 x 15 Balloon catheter was inserted. Balloon catheter was advanced across lesion in the circumflex, mid. Resolute Placido 2.0 x 12 Drug Eluting stent was inserted. Drug Eluting stent was advanced across the lesion in the first obtuse marginal, ostial. Angiogram performed pre stent deployment. Angiogram performed pre balloon dilatation. Angiogram performed post stent deployment. PTCA balloon inflated at 12 atms for 22 secs. In the mid Circumflex PTCA balloon inflated at 12 atms for 14 secs. Angiogram performed post balloon dilatation. Resolute [place] 2.5 x 30 Drug Eluting stent was inserted. Resolute Placido 2.5 x 26 Drug Eluting stent was inserted. Balloon catheter was advanced across lesion in the circumflex, mid. NC Euphora 3.0 x 12 Balloon catheter was inserted. Balloon catheter was advanced across lesion in the circumflex, mid. Angiogram performed post balloon dilatation. Emerge 2.0x8 Balloon catheter was inserted. Balloon catheter was advanced across lesion in the first obtuse marginal, ostial. Emerge 2.25 x 12 Balloon catheter was inserted. Balloon catheter was advanced across lesion in the circumflex, mid. NC Euphoria 3.5 x 12 Balloon catheter was inserted. Balloon catheter was advanced across lesion in the circumflex, mid. INTERVENTION INFORMATION LESION SITE: 1st OM (Ostial) Lesion Complexity: Non-High/Non-C, lesion at bifurcation: Yes, lesion length: 10 mm Pre Stenosis: 95 % Pre intervention ELLA flow: 3 PROCEDURE: Drug Eluting Stent with pre and post dilatation Post Stenosis: 0 % Post intervention ELLA flow: 3 Lesion Devices: Cordis 6 Fr XB3.0 100cm Guide Catheter Terumo .014 180cm Runthrough Extra Floppy straight Terumo .014 180cm Runthrough Extra Floppy straight Medtronic SC EUPHORA RX 2.0x12 BALLOON Medtronic Resolute [place] RX HERMINIA 2.0x12 Garret Sci EMERGE MR 2.00x08 BALLOON LESION SITE: Circumflex (Mid) Lesion Complexity: High/C, lesion length: 24 mm Pre Stenosis: 80 % Pre intervention ELLA flow: 3 PROCEDURE: Drug Eluting Stent with pre and post dilatation Post Stenosis: 0 % Post intervention ELLA flow: 3 Lesion Devices: Cordis 6 Fr XB3.0 100cm Guide Catheter Terumo .014 180cm Runthrough Extra Floppy straight Terumo .014 180cm Runthrough Extra Floppy straight Garret Sci NC EMERGE MR 2.50x15 BALLOON Medtronic Resolute [place] RX HERMINIA 2.5x26 Medtronic NC EUPHORA RX 3.0x12 BALLOON Garret Sci EMERGE MR 2.25x12 BALLOON Medtronic NC EUPHORA RX 3.5x12 BALLOON COMPLICATIONS No Complications PROCEDURE MEDICATIONS Versed 2 mg IV Versed 1 mg IV Fentanyl 50 mcg IV Fentanyl 50 mcg IV Oxygen: 2 L/min via nasal cannula Heparin given IA 12/08/2022 10:18:45 Heparin 4000 unit(s) IV 12/08/2022 10:21:05 Heparin 2000 unit(s) IV 12/08/2022 11:24:18 Nitro 200 mcg IC 12/08/2022 11:24:34 Plavix 300 mg PO 12/08/2022 11:30:53 Verapamil 2.5mg, Ntg 200mcgs, 2000 units of Heparin given IA 12/08/2022 10:18:45 IV Bolus: .9 NaCl 200 ml total 12/08/2022 11:34:17 SUMMARY OF HEMODYNAMIC DATA Time AIR REST ECG 07:35:38 AO 156/72 (105) SA 10:26:19
[2022-12-08 13:50] LABS: ACT Activated Clotting Time 329 sec (74-137)
[2022-12-08 13:51] LABS: ACT Activated Clotting Time 275 sec (74-137)
--- NOTE | 2022-12-08 13:59 | CRPHASE1_ITS ---
Patient Communication Former Patient:: Phase I PHII Cardiac Rehab Discussed with Patient:: Yes Guide to Cardiac Rehab Given to Patient:: Yes Cardiac Rehab Facility Choice List Given to Patient:: Yes Waste Water Or Water Plant Operator:: Nitin Phelan Phase II Cardiac Rehab:: Yes Cardiac Rehabilitation Info Cardiac Rehabilitation Program Information: Cardiac Rehab The cardiac rehab team at [facility] consists of highly skilled exercise physiologists, nurses, respiratory therapists and physicians working together with you. Our purpose is to help you have a full recovery and achieve the goals you set for yourself. Over the years many of our patients have returned to activities they assumed they would never do again! We can help restore your confidence and motivation to make lifestyle changes that can have a significant impact on your health and quality of life! We can help answer questions and concerns you may have about exercise, lifestyle, medications, diet, stress and anxiety which are common following a hospitalization. WE monitor ECG and vital signs during exercise and discuss your progress with you and report to your physician(s). Cardiac Rehab is proven to help reduce readmissions, improve functional capacity and lower recurrence of problems with your heart. Our Cardiac Rehab program is Certified by the [place] [employer] Cardio-Vascular and Pulmonary Rehabilitation (AACVPR) and Accredited by the [place] [employer] through our [facility]. You can contact us at . We invite you to call us with your questions or to get started in our program. If you have other questions or concerns be sure to ask your physician/provider during your follow-up visit. WE look forward to seeing you!
--- NOTE | 2022-12-08 14:00 | CRPH1.INSTRU ---
General Education CAD and cardiac anatomy and function:: Patient communicates acknowledgment Explanation of diagnoses and procedures:: Patient communicates acknowledgment Sign/Symptoms of [place]:: Patient communicates acknowledgment Antiplatelet therapy: Patient communicates acknowledgment Proper use of NTG-SL: Patient communicates acknowledgment Emergency procedures and activation of EMS: Patient communicates acknowledgment Compliance of all prescribed medications: Patient communicates acknowledgment Smoking Patient Nicotine/Smoking Risk Factors Are:: Cigarettes Recommendations Include:: Previous smoker; encourage continued cessation Nicotine/Smoking Response Code:: Patient communicates acknowledgment Dyslipidemia Patient Dyslipidemia Risk Factors Are:: Total Cholesterol Recommendations Include:: Lipid profile not available Dyslipidemia Response Code:: Patient communicates acknowledgment Overweight/Obesity Patient Overweight/Obesity Risk Factors Are:: Obesity - > or = 30 Recommendations Include:: Weight loss of 5-10%, Reduced calorie diet, Exercise 5-7 times/week Overweight/Obesity:: Patient communicates acknowledgment Hypertension Recommendations Include:: Maintain BP <130/85, BP <130/80 if diabetic Hypertension:: Patient communicates acknowledgment Heart Disease Patient Heart Disease Risk Factors Are:: Previous cardiac event Recommendations Include:: Educated family members of their risk Heart Disease Response Code:: Patient communicates acknowledgment Diabetes Patient Diabetes Risk Factors Are:: Elevated blood sugars Recommendations Include:: Maintain fasting blood sugars 70-110 md/dL, Maintain HgbA1c of 6% or less, Monitor blood sugar as prescribed, Diabetic dietary guidelines, Decrease/maintain body weight Diabetes:: Patient communicates acknowledgment Metabolic Syndrome Patient Metabolic Syndrome Risk Factors Are [3 of 5]:: Fasting blood sugar > 100 mg/dL, Waist circumference > 35 [female] or 40 [male], High triglyceride >150, Hypertension Recommendations Include:: Reinforce compliance to risk factor modifications Metabolic Syndrome Response Code:: Patient communicates acknowledgment Sedentary Patient Sedentary Risk Factors Are:: Lack of regular exercise Recommendations Include:: Aerobic exercise 5-7 times/week for 20-30 minutes continuously, Benefits of regular exercise, Discussed home walking program, Monitored Outpatient Cardiac Rehab Sedentary Response Code:: Patient communicates acknowledgment Stress Recommendations Include:: Identification of stressors, and assessment of coping skills Stress Response Code:: Patient communicates acknowledgment
[2022-12-08 14:25] VITALS: BP 122/58; PULSE 65; RESP 16; TEMP 36.5; O2SAT 95
[2022-12-08] MEDS: 0.9% Normal Saline 1,000 ML 150 ML IV (14:38)
[2022-12-08 15:30] VITALS: O2SAT 94
[2022-12-08] MEDS: Acetaminophen 325 MG Tablet 650 MG PO (17:26)
[2022-12-08] MEDS: Insulin Lispro 100 UNIT/ML INSULN.PEN SC (17:27)
[2022-12-08 17:50] LABS: Bedside Glucose 190 mg/dL (74-106)
[2022-12-08 20:25] VITALS: BP 129/65; PULSE 69; RESP 16; TEMP 36.7; O2SAT 96
[2022-12-08 21:35] VITALS: BP 136/58; PULSE 68; RESP 16; TEMP 36.6; O2SAT 97
[2022-12-08] MEDS: Atorvastatin Calcium 40 MG Tablet PO (21:39)
[2022-12-08] MEDS: Insulin Glargine-YFGN 100 UNIT/ML Pen 120 UNIT SC (21:39)
[2022-12-08 23:46] LABS: Bedside Glucose 189 mg/dL (74-106)
[2022-12-09 03:29] VITALS: BP 123/57; PULSE 74; RESP 16; TEMP 36.6; O2SAT 94
[2022-12-09 07:43] LABS: Hematocrit 47.5 % (37-47); Hemoglobin 15.1 g/dL (12.0-15.0); Mean Corp Hgb Conc 31.8 g/dL (32-36); Mean Corpuscular Hgb 26.7 pg (27.0-32.0); Mean Corpuscular Volume 84.1 fL (81-99); Mean Platelet Vol. 9.7 fl (6.2-12.0); Platelet Count 388 K/mm3 (150-450); RBC Distribution Width CV 14.3 % (11.6-14.6); RBC Distribution Width SD 43.6 fl (35.1-43.9); Red Blood Count 5.65 M/mm3 (4.2-5.4); White Blood Count 12.6 K/mm3 (4.4-11.0)
[2022-12-09 08:15] LABS: BUN 16 mg/dL (7-18); Creatinine, Serum 0.82 mg/dL (0.55-1.02); EST Glomerular Filtration Rate 74 mL/min (>60); Glucose 171 mg/dL (74-106)
[2022-12-09 08:16] LABS: ALB/GLOB Ratio 0.9 RATIO (0.9-2.4); AST(SGOT) 24 U/L (15-37); Alanine Aminotransfer ALT/SGPT 36 U/L (13-56); Albumin, Serum 3.3 g/dL (3.2-5.0); Alkaline Phosphatase 172 U/L (45-117); Anion Gap 2 (5-15); BUN/Creat Ratio 19.6 RATIO (10-20); Calcium,Total 9.2 mg/dL (8.5-10.1); Chloride 107 mmol/L (98-107); Est Glom Filt Rate - Afr Amer 90 mL/min (>60); Globulin 3.5 g/dL (2.2-4.2); Potassium 4.1 mmol/L (3.5-5.1); Protein, Total 6.8 g/dL (6.4-8.2); Sodium Level 136 mmol/L (136-145)
[2022-12-09] MEDS: Insulin Lispro 100 UNIT/ML INSULN.PEN SC (08:28)
[2022-12-09 08:50] VITALS: O2SAT 94
[2022-12-09 08:51] LABS: Bedside Glucose 142 mg/dL (74-106)
[2022-12-09 09:57] VITALS: BP 132/68; PULSE 84; RESP 17; TEMP 36.7; O2SAT 95
[2022-12-09] MEDS: Clopidogrel Bisulfate 75 MG Tablet PO (10:03)
[2022-12-09] MEDS: Sertraline 50 MG Tablet PO (10:03)
[2022-12-09] MEDS: amLODIPine 5 MG Tablet PO (10:03)
[2022-12-09] MEDS: Empagliflozin 25 MG Tablet PO (10:03)
[2022-12-09] MEDS: Aspirin E.C. 81 MG Tablet PO (10:03)
--- NOTE | 2022-12-09 11:01 | PCM.PN.BLA ---
Progress Note Denies any comp pains. Ambulating. No angina. Right radial pulse 2+. Discharge home. Follow-up as outpatient.
--- NOTE | 2022-12-09 11:04 | DCINST_ITS ---
Discharge Instructions Diet Discharge Diet: 2000 Calorie Control Diet Activity Discharge Activity: Return to Normal Activity Follow Up Care Test Results: Test results from this visit will be discussed in further detail at your follow- up appointment, if applicable. Discharge Plan Admission Admit Date/Time: 12/08/22 14:20 Attending Provider: Nitin Phelan Primary Care Provider: Aida Nolan Discharge Orders/Prescriptions Prescriptions: Continued sertraline 50 mg tablet 50 mg PO DAILY insulin degludec [Tresiba FlexTouch U-200] 200 unit/mL (3 mL) insulin pen 120 unit subcut QHS Jardiance 25 mg tablet 25 mg PO DAILY cholecalciferol (vitamin D3) 125 mcg (5,000 unit) capsule 250 mcg PO DAILY nitroglycerin 0.4 mg tablet, sublingual 0.4 mg sublingual Q5M PRN (Reason: chest pain) Qty: 14 6RF Rx Instructions: do not exceed 3 doses per episode amlodipine 5 mg tablet 5 mg PO DAILY Qty: 30 1RF isosorbide dinitrate 5 mg tablet 5 mg PO BID Qty: 60 1RF Rx Instructions: allow nitrate-free interval of 12-14 hrs per 24-hr period insulin aspart U-100 [Novolog FlexPen U-100 Insulin] 100 unit/mL (3 mL) insulin pen 30 - 70 unit subcut TIDCM Label Comments: TAKE DIRECTED BEFORE MEAL(S) 140-169 30 UNITS, 170-200 40 UNITS, 201-250 50 UNITS, 251- 300 70 UNITS. MAX DAILY DOSE IS 180 UNITS Rx Instructions: 30 to 70 units per meal (see pt comments). atorvastatin 40 mg Tablet 40 mg PO QHS Qty: 30 11RF clopidogrel 75 mg Tablet 75 mg PO DAILY Qty: 60 6RF aspirin [Adult Aspirin Regimen] 81 mg tablet,delayed release (DR/EC) 81 mg PO DAILY Referrals / Follow Up: Aida Nolan DO [Primary Care Provider] - Disposition Disposition (needs filled in before D/C Order can be placed): Home, Self Care
--- NOTE | 2022-12-09 11:15 | CASEMGMT ---
KATHERYN BARROSO: KATHERYN BARROSO in to complete SANDOVAL form at this time.? RN CHIO explained SANDOVAL form to patient, patient voiced understanding.? Patient signed SANDOVAL Form and filed in chart.? Patient provided with copy of signed SANDOVAL form.? Patient had no further questions or concerns.?? Noted pt to be ambulating in halls independent with spouse at side. Pt denies any concerns or needs at discharge. Aquiles Isidro RN CM
== END 2022-12-09 11:45 | disposition home or self-care (01) ==
LOC: PCU 15:39
PROVIDERS: Admitting Provider Internal Medicine Cardiovascular Disease; PCP Internal Medicine; Referring Provider Internal Medicine Cardiovascular Disease; Visit Provider Internal Medicine Cardiovascular Disease
DX: I25.110 Atherosclerotic heart disease of native coronary artery with unstable angina pectoris (principal); E11.51 Type 2 diabetes mellitus with diabetic peripheral angiopathy without gangrene; E11.69 Type 2 diabetes mellitus with other specified complication; Z79.4 Long term (current) use of insulin; I10 Essential (primary) hypertension; M79.7 Fibromyalgia; Z79.899 Other long term (current) drug therapy; Z79.82 Long term (current) use of aspirin; Z79.02 Long term (current) use of antithrombotics/antiplatelets; Z87.891 Personal history of nicotine dependence; R53.83 Other fatigue
CPT/HCPCS: 36415; 80053; 82962; 85027; 85347; 92928; 92929; 93005; 96360; 96361; 99152; 99153; 99221; C1874; J7030; J7040; Q9967; C1725; C1769; C1887; C1894; C9600; C9601; G0378; J2405

== ENCOUNTER → 2022-12-27 | Outpatient (CLI) | payer MEDICARE, SELFPAY ==
[2022-12-27 16:48] LABS: Anion Gap 4 (5-15); BUN 23 mg/dL (7-18); BUN/Creat Ratio 26.8 RATIO (10-20); Calcium,Total 9.2 mg/dL (8.5-10.1); Chloride 103 mmol/L (98-107); Creatinine, Serum 0.86 mg/dL (0.55-1.02); EST Glomerular Filtration Rate 71 mL/min (>60); Est Glom Filt Rate - Afr Amer 85 mL/min (>60); Glucose 245 mg/dL (74-106); Potassium 3.9 mmol/L (3.5-5.1); Sodium Level 134 mmol/L (136-145)
== END | disposition home or self-care (01) ==
LOC: LAB 14:56
PROVIDERS: PCP Internal Medicine; Referring Provider Internal Medicine Cardiovascular Disease; Visit Provider Internal Medicine Cardiovascular Disease
DX: E78.5 Hyperlipidemia, unspecified (principal); I10 Essential (primary) hypertension; I25.10 Atherosclerotic heart disease of native coronary artery without angina pectoris; Z95.5 Presence of coronary angioplasty implant and graft
CPT/HCPCS: 36415; 80048

== ENCOUNTER → 2023-02-13 | Outpatient (CLI) | payer MEDICARE, SELFPAY | END | disposition home or self-care (01) | LOC: PSN 10:20 | PROVIDERS: PCP Internal Medicine; Referring Provider Physician Assistant Medical; Visit Provider Physician Assistant Medical | DX: I47.1 Supraventricular tachycardia (principal); R00.2 Palpitations | CPT/HCPCS: 93225; 93226 ==

== ENCOUNTER → 2023-04-12 | Outpatient (CLI) | payer MEDICARE, SELFPAY ==
[2023-04-12 10:02] LABS: AST(SGOT) 12 U/L (15-37); Alanine Aminotransfer ALT/SGPT 24 U/L (13-56); Albumin, Serum 3.4 g/dL (3.2-5.0); Alkaline Phosphatase 150 U/L (45-117); Bilirubin, Direct 0.11 mg/dL (0.00-0.30); Cholesterol 143 mg/dL (200); Globulin 3.9 g/dL (2.2-4.2); High Density Lipoprotein 35 mg/dL; Protein, Total 7.3 g/dL (6.4-8.2); Triglycerides 139 mg/dL; Very Low Density Lipoprotein 28 mg/dL (5-40)
[2023-04-12 10:24] LABS: Hematocrit 49.4 % (37-47); Hemoglobin 15.3 g/dL (12.0-15.0); Mean Corpuscular Hgb 26.6 pg (27.0-32.0); Mean Corpuscular Volume 85.8 fL (81-99); Mean Platelet Vol. 9.7 fl (6.2-12.0); Platelet Count 377 K/mm3 (150-450); RBC Distribution Width CV 14.6 % (11.6-14.6); RBC Distribution Width SD 46.2 fl (35.1-43.9); Red Blood Count 5.76 M/mm3 (4.2-5.4); White Blood Count 13.7 K/mm3 (4.4-11.0)
[2023-04-12 10:40] LABS: Prothrombin Time (Protime)PT. 13.2 SECONDS (11.7-14.9)
[2023-04-12 10:41] LABS: Partial Thromboplast Time 28.2 Seconds (24.1-36.2)
[2023-04-12 10:52] LABS: Anion Gap 3 (5-15); BUN 25 mg/dL (7-18); BUN/Creat Ratio 28.3 RATIO (10-20); Calcium,Total 9.7 mg/dL (8.5-10.1); Chloride 103 mmol/L (98-107); Creatinine, Serum 0.88 mg/dL (0.55-1.02); EST Glomerular Filtration Rate 68 mL/min (>60); Est Glom Filt Rate - Afr Amer 82 mL/min (>60); Glucose 182 mg/dL (74-106); Potassium 4.9 mmol/L (3.5-5.1); Sodium Level 136 mmol/L (136-145)
== END | disposition home or self-care (01) ==
PROVIDERS: PCP Internal Medicine; Referring Provider Internal Medicine Cardiovascular Disease; Visit Provider Internal Medicine Cardiovascular Disease
DX: E78.5 Hyperlipidemia, unspecified (principal); I25.10 Atherosclerotic heart disease of native coronary artery without angina pectoris; I10 Essential (primary) hypertension; R06.02 Shortness of breath; Z95.5 Presence of coronary angioplasty implant and graft
CPT/HCPCS: 36415; 80048; 80061; 80076; 85027; 85610; 85730

== ENCOUNTER 2023-04-24 10:25 | Observation (INO) | payer MEDICARE, SELFPAY ==
[2023-04-23 08:50] VITALS: BMI 34.7
--- NOTE | 2023-04-24 10:29 | DCINST_ITS ---
Discharge Instructions Diet Discharge Diet: 2000 Calorie Control Diet Activity Discharge Activity: Return to Normal Activity May resume sexual activity in: No Restrictions Dressing / Incision Call your doctor if your incision/area has: Continuous Slow Oozing, Sudden Increased Bleeding, Increased Pain/ Swelling, Increased Redness, Foul Smelling Discharge and Swelling at the incision site Call your doctor if you observe: Fever of 101 or Higher and Coldness, Increased Pain Follow Up Care Please Follow Up With: Nitin Phelan MD When: 2-4 weeks Test Results: Test results from this visit will be discussed in further detail at your follow- up appointment, if applicable. Discharge Plan Admission Attending Provider: Nitin Phelan Primary Care Provider: Aida Nolan Discharge Orders/Prescriptions Prescriptions: Continued sertraline 50 mg tablet 50 mg PO DAILY insulin degludec [Tresiba FlexTouch U-200] 200 unit/mL (3 mL) insulin pen 120 unit subcut QHS Jardiance 25 mg tablet 25 mg PO DAILY cholecalciferol (vitamin D3) 125 mcg (5,000 unit) capsule 250 mcg PO DAILY nitroglycerin 0.4 mg tablet, sublingual 0.4 mg sublingual Q5M PRN (Reason: chest pain) Qty: 14 6RF Rx Instructions: do not exceed 3 doses per episode carvedilol 12.5 mg tablet 12.5 mg PO BID Qty: 60 1RF Rx Instructions: must administer with a meal/food Praluent Pen 150 mg/mL pen injector 300 mg subcut Q4W Qty: 2 1RF amlodipine 2.5 mg tablet 2.5 mg PO DAILY Qty: 30 1RF insulin aspart U-100 [Novolog FlexPen U-100 Insulin] 100 unit/mL (3 mL) insulin pen 30 - 70 unit subcut TIDCM Patient Comments: TAKE DIRECTED BEFORE MEAL(S) 140-169 30 UNITS, 170-200 40 UNITS, 201-250 50 UNITS, 251- 300 70 UNITS. MAX DAILY DOSE IS 180 UNITS Rx Instructions: 30 to 70 units per meal (see pt comments). atorvastatin 40 mg Tablet 40 mg PO QHS Qty: 30 11RF clopidogrel 75 mg Tablet 75 mg PO DAILY Qty: 60 6RF aspirin [Adult Aspirin Regimen] 81 mg tablet,delayed release (DR/EC) 81 mg PO DAILY Referrals / Follow Up: Aida Nolan DO [Primary Care Provider] - Disposition Disposition (needs filled in before D/C Order can be placed): Home, Self Care
--- NOTE | 2023-04-24 10:44 | CL.I_ITS ---
Patient Name: SINAN DEE Study Date: 04/24/2023 Performing: Nitin Phelan MD Ht: 62 inches 157.48 cm : 1955 Wt: 189.99 lbs 86.18 kg Age: 67 Gender: female BSA: 1.87 PROCEDURE(S) PERFORMED DC02-(07531)LHC/COR IC01-(03037)PTCA, SINGLE CORONARY ARTERY CLINICAL PROFILE AND CO-MORBIDITIES Indications: New Onset Angina <= 2 months Heart Failure: None Angina Classification Anginal Classification w/in 2 Weeks: CCS II CAD Presentations: Stable angina. CONCLUSIONS 90% ISR Lat OM1 Successful PTCA ISR Lat OM1 using 2.25 mm balloon RECOMMENDATIONS ASA Indefinitley Plavix for at least 1 months DESCRIPTION OF PROCEDURE The patient arrived to the procedure lab. The risks and benefits of the procedure as well as a full description of our services here and lack of surgical backup were fully explained to the patient and/or their significant other prior to the catheterization. The Timeout was completed, verifying the correct patient and procedure. The patient's procedural site was prepped and draped in the usual fashion. Local anesthetic was given subcutaneously to right radial region with Lidocaine 2%. Using a modified Seldinger technique, arterial access was obtained via the right radial artery, a 6Fr sheath was inserted.. Left Coronary Artery selective angiography was performed in multiple views using a 5 Fr. 4.0 Milton catheter. Right Coronary Artery selective angiography was then performed in multiple views using a 5 Fr. 4.0 Milton catheter. Left Coronary Artery selective angiography was performed in multiple views using a 5 Fr.The images were reviewed and options discussed. A decision was then made to proceed with an Intervention, IVUS or other adjunct procedure. xb 2.5 Guide catheter was inserted and engaged into the OM runthrough Guide wire was advanced to the OM runthrough Guide wire was advanced to the Circumflex. nc emerge 2.25 x 8 Balloon catheter was advanced across lesion in the first obtuse marginal, distal. PTCA balloon inflated at 16 atms for 30 secs. PTCA balloon inflated at 14 atms for 21 secs. PTCA balloon inflated at 14 atms for 33 secs. Angiogram performed post balloon dilatation. nc euphora Balloon catheter was advanced across lesion in the first obtuse marginal, distal. PTCA balloon inflated at 6 atms for 14 secs. PTCA balloon inflated at 12 atms for 42 secs. Angiogram performed post balloon dilatation. nc emerge 2.25 x 8 Balloon catheter was advanced across lesion in the first obtuse marginal, distal. PTCA balloon inflated at 12 atms for 30 secs. Angiogram performed post balloon dilatation. The arterial sheath was pulled and a TR Band was applied for hemostasis CORONARY ANGIOGRAPHY DOMINANCE: Right Dominant LEFT ANTERIOR DESCENDING ARTERY: LAD: Tubular 50% Proximal lesion in LAD OM 1: In-Stent Restenosis 20% Mid lesion in MARG1, STENT to 20% OM 2: In-Stent Restenosis 20% Mid lesion in MARG1, STENT to 20% RIGHT CORONARY ARTERY: Stent to Mid RCA widely patent INTERVENTION INFORMATION LESION SITE: 1st OM (Distal) Lesion Complexity: Non-High/Non-C, lesion length: 8 mm Pre Stenosis: 90 % Pre intervention ELLA flow: 3 PROCEDURE: Balloon Angioplasty Post Stenosis: 0 % Post intervention ELLA flow: 3 Lesion Devices: [employer] NC EMERGE MR 2.25x08 BALLOON Medtronic NC EUPHORA RX 2.5x12 BALLOON COMPLICATIONS No Complications PROCEDURE MEDICATIONS Versed 1 mg IV Fentanyl 50 mcg IV Versed 1 mg IV Fentanyl 50 mcg IV Versed 2 mg IV Heparin given IA 04/24/2023 09:34:03 Heparin 6000 unit(s) IV 04/24/2023 09:53:36 Nitro 200 mcg IC 04/24/2023 10:14:26 Plavix 75 mg PO 04/24/2023 07:50:38 Plavix 300 mg PO 04/24/2023 10:30:40 Verapamil 2.5mg, Ntg 200mcgs, 2000 units of Heparin given IA 04/24/2023 09:34:03 IV Bolus: .9 NaCl 250 ml total 04/24/2023 09:37:52 SUMMARY OF HEMODYNAMIC DATA Time AIR REST AO 129/73 (96) SA 09:39:20 ECG 10:37:26 ECG 10:37:30 AIR REST 10:37:30 Signed By Nitin Phelan MD On 04/24/2023 10:44:04 Nitin Phelan MD
--- NOTE | 2023-04-24 11:44 | CRPHASE1 ---
Patient Communication Patient Information PHII Cardiac Rehab Discussed with Patient:: Yes Guide to Cardiac Rehab Given to Patient:: Yes Cardiac Rehab Facility Choice List Given to Patient:: Yes Communication to Cardiac Rehab Choice Program [facility] PHII:: Communication Given to CR Magnetic Prospector:: Nitin Phelan Phase II Cardiac Rehab:: Yes Sessions:: 36 sessions - 3 days/wk, 12 weeks Cardiac Rehabilitation Info Program Information Cardiac Rehabilitation Program Information: Cardiac Rehab The cardiac rehab team at [facility] consists of highly skilled exercise physiologists, nurses, respiratory therapists and physicians working together with you. Our purpose is to help you have a full recovery and achieve the goals you set for yourself. Over the years many of our patients have returned to activities they assumed they would never do again! We can help restore your confidence and motivation to make lifestyle changes that can have a significant impact on your health and quality of life! We can help answer questions and concerns you may have about exercise, lifestyle, medications, diet, stress and anxiety which are common following a hospitalization. WE monitor ECG and vital signs during exercise and discuss your progress with you and report to your physician(s). Cardiac Rehab is proven to help reduce readmissions, improve functional capacity and lower recurrence of problems with your heart. Our Cardiac Rehab program is Certified by the [place] [employer] Pulmonary [employer] (AACVPR) and Accredited by the [place] [employer] through our [facility]. You can contact us at . We invite you to call us with your questions or to get started in our program. If you have other questions or concerns be sure to ask your physician/provider during your follow-up visit. WE look forward to seeing you!
--- NOTE | 2023-04-24 11:45 | CRPH1.INSTRU ---
General Education Discussed with Patient CAD and cardiac anatomy and function:: Patient communicates acknowledgment Explanation of diagnoses and procedures:: Patient communicates acknowledgment Sign/Symptoms of LA:: Patient communicates acknowledgment Antiplatelet therapy: Patient communicates acknowledgment Proper use of NTG-SL: Patient communicates acknowledgment Emergency procedures and activation of EMS: Patient communicates acknowledgment Compliance of all prescribed medications: Patient communicates acknowledgment Smoking Risk Factors Patient Nicotine/Smoking Risk Factors Are:: Non-smoker Recommendations Recommendations Include:: Previous smoker; encourage continued cessation Response Code Nicotine/Smoking Response Code:: Patient communicates acknowledgment Dyslipidemia Risk Factors Patient Dyslipidemia Risk Factors Are:: Total Cholesterol, Triglycerides, HDL and LDL Recommendations Recommendations Include:: Lipid profile provided, Reviewed NCEP/ATP guidelines and Therapeutic Lifestyle Change dietary guidelines Response Code Dyslipidemia Response Code:: Patient communicates acknowledgment Overweight/Obesity Risk Factors Patient Overweight/Obesity Risk Factors Are:: Obesity - > or = 30 Recommendations Recommendations Include:: Weight loss of 5-10%, Reduced calorie diet and Exercise 5-7 times/week Response Code Overweight/Obesity:: Patient communicates acknowledgment Hypertension Recommendations Recommendations Include:: BP <130/80 if diabetic, DASH dietary guidelines, Decrease/maintain normal body weight and Moderation of ETOH Response Code Hypertension:: Patient communicates acknowledgment Heart Disease Risk Factors Patient Heart Disease Risk Factors Are:: Previous cardiac event Response Code Heart Disease Response Code:: Patient communicates acknowledgment Diabetes Risk Factors Patient Diabetes Risk Factors Are:: Elevated blood sugars Recommendations Recommendations Include:: Maintain fasting blood sugars 70-110 md/dL, Maintain HgbA1c of 6% or less, Monitor blood sugar as prescribed, Diabetic dietary guidelines and Decrease/maintain body weight Response Code Diabetes:: Patient communicates acknowledgment Metabolic Syndrome Risk Factors Patient Metabolic Syndrome Risk Factors Are [3 of 5]:: Fasting blood sugar > 100 mg/dL, Waist circumference > 35 [female] or 40 [male], High triglyceride >150, Hypertension and Low HDL <40 [male] or < 50 [female] Recommendations Recommendations Include:: Patient is diabetic and Encouraged follow-up with Primary Care Physician Response Code Metabolic Syndrome Response Code:: Patient communicates acknowledgment Sedentary Risk Factors Patient Sedentary Risk Factors Are:: Lack of regular exercise Recommendations Recommendations Include:: Aerobic exercise 5-7 times/week for 20-30 minutes continuously, Benefits of regular exercise, Discussed home walking program and Monitored Outpatient Cardiac Rehab Response Code Sedentary Response Code:: Patient communicates acknowledgment Stress Recommendations Recommendations Include:: Identification of stressors, and assessment of coping skills and Stress management techniques Response Code Stress Response Code:: Patient communicates acknowledgment
[2023-04-24 12:55] VITALS: BP 112/52; PULSE 62; RESP 16; TEMP 36.1; O2SAT 97
[2023-04-24 12:59] VITALS: BMI 35.1
[2023-04-24] MEDS: 0.9% Normal Saline 1,000 ML 150 ML IV (13:21)
[2023-04-24 13:42] LABS: ACT Activated Clotting Time 269 sec (74-137)
[2023-04-24 16:55] VITALS: BP 122/52; PULSE 64; RESP 16; TEMP 36.6; O2SAT 96
[2023-04-24 17:21] LABS: Bedside Glucose 140 mg/dL (74-106)
[2023-04-24] MEDS: Insulin Lispro 100 UNIT/ML INSULN.PEN SC (17:21)
--- NOTE | 2023-04-24 18:53 | NURSING ---
Reviewed charting with Alfie Domínguez RN
[2023-04-24] MEDS: Insulin Glargine-YFGN 100 UNIT/ML Pen 120 UNIT SC (20:36)
[2023-04-24] MEDS: Atorvastatin Calcium 40 MG Tablet PO (20:36)
[2023-04-24] MEDS: Carvedilol 12.5 MG Tablet PO (20:36)
[2023-04-24 21:14] LABS: Bedside Glucose 200 mg/dL (74-106)
[2023-04-24 22:13] VITALS: BP 134/56; PULSE 74; RESP 16; TEMP 36.6; O2SAT 97
[2023-04-25 03:00] VITALS: BP 105/50; PULSE 65; RESP 16; TEMP 36.3; O2SAT 94
[2023-04-25 06:10] LABS: Hematocrit 42.1 % (37-47); Hemoglobin 13.3 g/dL (12.0-15.0); Mean Corp Hgb Conc 31.6 g/dL (32-36); Mean Corpuscular Hgb 26.6 pg (27.0-32.0); Mean Corpuscular Volume 84.2 fL (81-99); Platelet Count 339 K/mm3 (150-450); RBC Distribution Width CV 14.6 % (11.6-14.6); RBC Distribution Width SD 44.2 fl (35.1-43.9); White Blood Count 12.7 K/mm3 (4.4-11.0)
[2023-04-25 06:16] LABS: Bedside Glucose 90 mg/dL (74-106)
[2023-04-25 06:44] LABS: ALB/GLOB Ratio 0.9 RATIO (0.9-2.4); AST(SGOT) 9 U/L (15-37); Alanine Aminotransfer ALT/SGPT 19 U/L (13-56); Albumin, Serum 3.1 g/dL (3.2-5.0); Alkaline Phosphatase 128 U/L (45-117); Anion Gap 6 (5-15); BUN 21 mg/dL (7-18); BUN/Creat Ratio 27.2 RATIO (10-20); Calcium,Total 8.5 mg/dL (8.5-10.1); Chloride 110 mmol/L (98-107); Creatinine, Serum 0.77 mg/dL (0.55-1.02); EST Glomerular Filtration Rate 80 mL/min (>60); Est Glom Filt Rate - Afr Amer 96 mL/min (>60); Estimated Creatinine Clearance 57.61 ml/min; Globulin 3.4 g/dL (2.2-4.2); Glucose 93 mg/dL (74-106); Potassium 3.9 mmol/L (3.5-5.1); Protein, Total 6.5 g/dL (6.4-8.2); Sodium Level 141 mmol/L (136-145)
[2023-04-25] MEDS: Carvedilol 12.5 MG Tablet PO (11:38)
[2023-04-25] MEDS: Clopidogrel Bisulfate 75 MG Tablet PO (11:38)
[2023-04-25] MEDS: Aspirin E.C. 81 MG Tablet PO (11:38)
[2023-04-25] MEDS: amLODIPine 2.5 MG Tablet PO (11:38)
[2023-04-25] MEDS: Sertraline 50 MG Tablet PO (11:38)
[2023-04-25] MEDS: Empagliflozin 25 MG Tablet PO (11:39)
[2023-04-25] MEDS: Cholecalciferol (Vit D3) 125 MCG CAPSULE (5,000 UNITS) 250 MCG PO (11:39)
[2023-04-25 11:41] VITALS: BP 142/58; PULSE 67; RESP 16; TEMP 36.6; O2SAT 97
--- NOTE | 2023-04-25 13:17 | PHA.DC.MR.R ---
Pharmacy [place] Med Reconciliation Pharmacy Service has performed discharge medication reconciliation for this patient. The patient's discharge medication list was reviewed for discrepancies and discrepancies were resolved. Medications at Discharge Home Medications empagliflozin 25 mg tablet (Jardiance) 25 mg PO DAILY diabetes 10/28/22 insulin aspart U-100 100 unit/mL (3 mL) subcutaneous pen (Novolog FlexPen U-100 Insulin aspart) 30 - 70 unit subcut TIDCM dm 10/28/22 insulin degludec 200 unit/mL (3 mL) subcutaneous pen (Tresiba FlexTouch U-200 insulin) 120 unit subcut QHS diabetes 10/28/22 sertraline 50 mg tablet 50 mg PO DAILY mental health 10/28/22 cholecalciferol (vitamin D3) 125 mcg (5,000 unit) capsule 250 mcg PO DAILY vitamin 10/31/22 nitroglycerin 0.4 mg sublingual tablet 0.4 mg sublingual Q5M PRN chest pain #14 tabs 10/31/22 aspirin 81 mg tablet,delayed release (Adult Aspirin Regimen) 81 mg PO DAILY heart health 11/09/22 atorvastatin 40 mg tablet 40 mg PO QHS #30 tabs 11/09/22 clopidogrel 75 mg tablet 75 mg PO DAILY #60 tabs 11/09/22 alirocumab 150 mg/mL subcutaneous pen injector (Praluent Pen) 300 mg (2 mL) subcut Q4W #2 mL 04/12/23 amlodipine 2.5 mg tablet 2.5 mg PO DAILY #30 tabs 04/12/23 carvedilol 12.5 mg tablet 12.5 mg PO BID #60 tabs 04/12/23
== END 2023-04-25 12:22 | disposition home or self-care (01) ==
LOC: CLSP 10:30 → PCU 12:49
PROVIDERS: Admitting Provider Internal Medicine Cardiovascular Disease; PCP Internal Medicine; Referring Provider Internal Medicine Cardiovascular Disease; Visit Provider Internal Medicine Cardiovascular Disease
DX: I25.119 Atherosclerotic heart disease of native coronary artery with unspecified angina pectoris (principal); E11.51 Type 2 diabetes mellitus with diabetic peripheral angiopathy without gangrene; I47.1 Supraventricular tachycardia; Z79.4 Long term (current) use of insulin; Z95.5 Presence of coronary angioplasty implant and graft; Z79.899 Other long term (current) drug therapy; Z79.02 Long term (current) use of antithrombotics/antiplatelets; I10 Essential (primary) hypertension; E78.5 Hyperlipidemia, unspecified; M79.7 Fibromyalgia; F32.A Depression, unspecified; Z87.891 Personal history of nicotine dependence
CPT/HCPCS: 36415; 80053; 82962; 85027; 85347; 92920; 93005; 93454; 96360; 96361; 99152; 99153; 99221; J7030; J7040; Q9967; C1725; C1769; C1887; C1894; G0378

== ENCOUNTER → 2023-05-18 | Outpatient (CLI) | payer MEDICARE, SELFPAY ==
--- NOTE | 2023-05-18 13:19 | US_ITS ---
STUDY: RENAL ULTRASOUND - COMPLETE REASON FOR EXAM: Female, 67 years old. UNSPECIFIED HYDRONEPHROSIS TECHNIQUE: Ultrasound evaluation of the kidneys was performed with real-time and static colbert-scale imaging. COMPARISON: None. FINDINGS: RIGHT KIDNEY: Normal location of the right kidney, which is normal in size. The right kidney measures 11.5 cm x 6.1 cm x 4.5 cm. There is a normal cortex of the right kidney. The renal cortex measures 1.5 cm. There is no right renal mass or cyst. There are no right renal calculi. There is no right hydronephrosis. DISTAL RIGHT URETER: There is non-visualization of the distal right ureter. There is no demonstrated right ureterovesical junction calculus. There is no demonstrated right ureteral jet. LEFT KIDNEY: Normal location of the left kidney, which is normal in size. The left kidney measures 11.6 cm x 5 cm x 5.5 cm. There is a normal cortex of the left kidney. The renal cortex measures 1.4 cm. There is no left renal mass or cyst. There are no left renal calculi. There is no left hydronephrosis. DISTAL LEFT URETER: There is non-visualization of the distal left ureter. There is a left ureterovesical junction calculus. There is a visualized left ureteral jet. BLADDER: The distended urinary bladder has a volume of 168 ml. There is a normal wall thickness of the distended urinary bladder. There is no demonstrated mass within the urinary bladder. There are no demonstrated bladder calculi. US/Kidney and Bladder IMPRESSION: Normal ultrasound of the kidneys and urinary bladder. Electronically Signed: David Stinson MD at 14:58 EDT ,
[2023-05-18 13:39] LABS: Anion Gap 3 (5-15); BUN 16 mg/dL (7-18); BUN/Creat Ratio 17.3 RATIO (10-20); Calcium,Total 9.3 mg/dL (8.5-10.1); Chloride 104 mmol/L (98-107); Creatinine, Serum 0.92 mg/dL (0.55-1.02); EST Glomerular Filtration Rate 65 mL/min (>60); Est Glom Filt Rate - Afr Amer 78 mL/min (>60); Glucose 174 mg/dL (74-106); Potassium 4.1 mmol/L (3.5-5.1); Sodium Level 136 mmol/L (136-145)
--- NOTE | 2023-05-18 13:40 | US_ITS ---
STUDY: SUPERFICIAL ULTRASOUND - RIGHT GROIN. REASON FOR EXAM: Female, 67 years old. Lump right groin TECHNIQUE: A superficial ultrasound was performed with real-time and static gupta-scale imaging. COMPARISON: None. FINDINGS: The palpable abnormality was examined with ultrasound. Is evidence of a 2.8 cm x 2.9 cm x 2.6 cm cyst in the right groin. US/Ext Non Vasc Limited/Soft Tiss IMPRESSION: The palpable abnormality corresponds to a 2.8 cm x 2.9 cm x 2.6 m cyst in the right groin. Electronically Signed: David Stinson MD at 15:12 EDT ,
== END | disposition home or self-care (01) ==
LOC: US 13:07
PROVIDERS: PCP Internal Medicine; Referring Provider Internal Medicine; Visit Provider Internal Medicine
DX: R19.09 Other intra-abdominal and pelvic swelling, mass and lump (principal)
CPT/HCPCS: 36415; 76770; 76882; 80048

== ENCOUNTER → 2023-05-30 | Outpatient (CLI) | payer MEDICARE, SELFPAY ==
--- NOTE | 2023-05-30 09:43 | US_ITS ---
STUDY: ABDOMINAL ULTRASOUND - ELASTOGRAPHY REASON FOR VISIT: Female, 53 years old. Fatty liver TECHNIQUE: Liver stiffness measurements were obtained on a Booktrope RS 85 ultrasound machine using a CA 1-7 probe following the SRU guidelines. 3 measurements were obtained using a 2-D-SWE method. TECHNICAL QUALITY: Adequate. COMPARISON: Prior study dated: Ultrasound 05/18/2023 FINDINGS: LIVER: The liver is normal in size and shape with mildly increased echogenicity. No focal hepatic lesion. No intrahepatic biliary ductal dilatation. There is no free fluid. Median liver stiffness measured 7.1-11.5 kPa. TheIQR/M was 8.3-17.8 % suggesting a quality data set. GALLBLADDER AND BILIARY TREE: Normally distended gallbladder without gallstones. No wall thickening or pericholecystic fluid. The proximal common bile duct measures 0.5 cm, which is within normal limits for the patient''s age. PANCREAS: No focal abnormality is demonstrated in the pancreas. No pancreatic ductal dilatation. Globally increased echogenicity. RIGHT KIDNEY: The right kidney measures 11.4 x 5.3 x 4.3 cm. No hydronephrosis or nephrolithiasis. No renal mass. US/ABD Limited w/ Elastography IMPRESSION: Liver stiffness measures 7.1-11.5 kPa compatible with F2-F3 Metavir score. Hepatic steatosis. Electronically Signed: Felipe Jimenez MD at 22:10 EDT ,
== END | disposition home or self-care (01) ==
LOC: US 09:41
PROVIDERS: PCP Internal Medicine; Referring Provider Internal Medicine; Visit Provider Internal Medicine
DX: R93.89 Abnormal findings on diagnostic imaging of other specified body structures (principal); N18.30 Chronic kidney disease, stage 3 unspecified; K76.0 Fatty (change of) liver, not elsewhere classified; R19.09 Other intra-abdominal and pelvic swelling, mass and lump
CPT/HCPCS: 76705; 76981

== ENCOUNTER 2023-08-18 16:04 | Emergency (ER) | payer MEDICARE, SELFPAY ==
[2023-08-18 16:05] VITALS: BP 131/61; PULSE 72; RESP 15; TEMP 36.1; O2SAT 97
--- NOTE | 2023-08-18 16:29 | EKG12_ITS ---
Test Reason : cp Blood Pressure : / mmHG Vent. Rate : 070 BPM Atrial Rate : 070 BPM P-R Int : 172 ms QRS Dur : 080 ms QT Int : 364 ms P-R-T Axes : 037 -30 032 degrees QTc Int : 393 ms Normal sinus rhythm Left axis deviation Septal infarct , age undetermined Abnormal ECG Confirmed by TROY RICHEY, MARCI ([id number]), film or videotape editor KATIE ABRAHAM ([id number]) on 08/20/2023 1:18:41 PM Referred By: Zenia Confirmed By:MARCI SIMMONS MD
[2023-08-18 16:40] LABS: Absolute Lymphocyte Count 2.59 X10^3/uL (0.83-4.51); Absolute Neutrophil Count 11.6 X10^3/uL (2.0-7.7); Basophil# 0.08 X10^3/uL; Basophil% 0.5 % (0-1); Eosinophils% 3.1 % (0-5); Hematocrit 46.4 % (37-47); Lymphocyte # 2.59 X10^3/ul (0.83-4.51); Lymphocyte % 16.2 % (19-41); Mean Corp Hgb Conc 32.3 g/dL (32-36); Mean Corpuscular Hgb 26.8 pg (27.0-32.0); Mean Platelet Vol. 9.5 fl (6.2-12.0); Monocyte# 1.01 X10^3/uL; Monocyte% 6.3 % (0-10); NRBC Flagged by Analyzer 0 % (0-5); Neutrophil # 11.63 X10^3/uL (2.7-7.7); Neutrophil % 73.1 % (47-70); Platelet Count 389 K/mm3 (150-450); RBC Distribution Width CV 14.8 % (11.6-14.6); RBC Distribution Width SD 44.8 fl (35.1-43.9); Red Blood Count 5.59 M/mm3 (4.2-5.4); White Blood Count 15.9 K/mm3 (4.4-11.0)
--- NOTE | 2023-08-18 16:40 | RAD_ITS ---
STUDY: X-RAY CHEST REASON FOR EXAM: Female, 68 years old. chest pain TECHNIQUE: AP portable COMPARISON: November 02, 2022. FINDINGS: The lungs are clear and expanded. There is no demonstrated pleural abnormality. Heart is upper normal size.. Normal mediastinum and kala. Normal visualized pulmonary arteries. Normal visualized aortic arch and descending thoracic aorta. Dorsal spine demonstrates degenerative changes. Normal visualized ribs, clavicles, and shoulders. There is no demonstrated abnormality of the visualized soft tissue structures of the upper abdomen. RAD/Chest 1 View (Portable) IMPRESSION: No acute cardiopulmonary pathology. Electronically Signed: Ismael Cespedes MD at 17:13 [facility] ,
--- NOTE | 2023-08-18 16:40 | EX.ED.DYSGE1 ---
HPI <LI Cerda - Last Filed: 08/18/23 21:01> History of Present Illness Chief Complaint: Chest Pain Narrative Narrative: Patient presenting today with substernal chest pain and epigastric pain that started this afternoon. She reports that the pain is a constant burning and tightness feeling. She reports that the pain radiates to the left side of his neck and below her left breast. She does have a history of CAD with stent placement. She reports slight shortness of breath at baseline and that has not worsened. She denies any fever, chills, history of blood clots, recent surgery/procedures/travel/immobilization. PFS <LI Cerda - Last Filed: 08/18/23 21:01> [facility] Medical History Abnormal nuclear stress test Acute colitis Angina pectoris Atherosclerotic heart disease of [place] coronary artery without angina pectoris CAD (coronary artery disease) Cerebral microvascular disease Cervical radiculopathy Depression Essential hypertension Fibromyalgia Gait abnormality Granuloma annulare HLD (hyperlipidemia) HTN (hypertension) IBS (irritable bowel syndrome) Liver hemangioma Lung nodule Obesity (BMI 30-39.9) Presence of stent in coronary artery (12/08/22) Psoriatic arthritis PSVT (paroxysmal supraventricular tachycardia) PVD (peripheral vascular disease) Rectal bleed Salmonella food poisoning Sepsis Supraclavicular fossa fullness Type II diabetes mellitus Vitamin D deficiency Home Medications empagliflozin 25 mg tablet (Jardiance) 25 mg PO DAILY diabetes 10/28/22 [History Last Taken Unknown] insulin aspart U-100 100 unit/mL (3 mL) subcutaneous pen (Novolog FlexPen U-100 Insulin aspart) 30 - 70 unit subcut TIDCM dm 10/28/22 [History Last Taken Unknown] insulin degludec 200 unit/mL (3 mL) subcutaneous pen (Tresiba FlexTouch U-200 insulin) 120 unit subcut QHS diabetes 10/28/22 [History Last Taken Unknown] sertraline 50 mg tablet 50 mg PO DAILY mental health 10/28/22 [History Last Taken 04/24/23] cholecalciferol (vitamin D3) 125 mcg (5,000 unit) capsule 250 mcg PO DAILY vitamin 10/31/22 [History Last Taken Unknown] nitroglycerin 0.4 mg sublingual tablet 0.4 mg sublingual Q5M PRN chest pain #14 tabs 10/31/22 [Rx Last Taken Unknown] aspirin 81 mg tablet,delayed release (Adult Aspirin Regimen) 81 mg PO DAILY heart health 11/09/22 [History Last Taken 04/24/23] lisinopril 2.5 mg tablet 2.5 mg PO DAILY 05/22/23 [History Last Taken Unknown] carvedilol 12.5 mg tablet 12.5 mg PO BID #180 tabs 06/15/23 [Rx Last Taken Unknown] amlodipine 5 mg tablet 5 mg PO DAILY #90 tabs 07/04/23 [Rx Last Taken Unknown] atorvastatin 40 mg tablet 40 mg PO QHS #90 tabs 07/04/23 [Rx Last Taken Unknown] clopidogrel 75 mg tablet 75 mg PO DAILY #90 tabs 07/04/23 [Rx Last Taken Unknown] alirocumab 150 mg/mL subcutaneous pen injector (Praluent Pen) 150 mg subcut MONTHLY #2 mL 07/10/23 [Rx Last Taken Unknown] Allergy/AdvReac Type Severity Reaction Status Date / Time omeprazole [From Prilosec] Allergy Intermediate can't Verified 08/18/23 16:09 remember adhesive tape Allergy Rash Verified 08/18/23 16:09 cefaclor [From Ceclor] Allergy Unknown Verified 08/18/23 16:09 liraglutide [From Victoza] Allergy Upset Verified 08/18/23 16:09 Stomach morphine Allergy my body Verified 08/18/23 16:09 felt like it was on fire; vomiting nalbuphine HCl [From Nubain] Allergy lungs Verified 08/18/23 16:09 froze up omeprazole magnesium Allergy Unknown Verified 08/18/23 16:09 [From Prilosec] Penicillins Allergy tightness Verified 08/18/23 16:09 in throat sulfamethoxazole Allergy Unknown Verified 08/18/23 16:09 [From Bactrim] trimethoprim [From Bactrim] Allergy Unknown Verified 08/18/23 16:09 codeine AdvReac hallucinati Verified 08/18/23 16:09 ons Family History Father Heart disease CVA (cerebral vascular accident) Hypertension Sister Breast cancer Heart disease Hypertension Mother Kidney disease Diabetes CHF (congestive heart failure) Hypertension Sister , age 40 Diabetes Kidney disease Grandmother Heart disease Cancer Surgical History H/O: hysterectomy History of cardiac catheterization (~04/24/23) History of esophagogastroduodenoscopy (EGD) (~01/2018) History of melanoma excision Hx of dilation and curettage Hx of melanoma excision Presence of coronary angioplasty implant and graft (~12/08/22) S/P PTCA (percutaneous transluminal coronary angioplasty) (04/24/23) Social History Smoking Status: Former smoker how long ago did patient quit smokin01/01/12 alcohol intake: never substance use type: does not use caffeine: Yes Type: coffee Number of servings: 3 ROS <LI Cerda - Last Filed: 08/18/23 21:01> ROS ED Constitutional Constitutional ED: Denies chills or fever(s) Cardiovascular Cardiovascular: Reports chest pain; Denies palpitations Respiratory/Chest Respiratory/Chest: Reports dyspnea; Denies cough Gastrointestinal Gastrointestinal: Denies abdominal pain, nausea or vomiting Musculoskeletal Musculoskeletal: Denies arthralgias or myalgias Integumentary Denies rash Neurologic Neurologic: Denies weakness EXAM <LI Cerda - Last Filed: 08/18/23 21:01> Physical Exam Const Vital Signs: 08/18/23 16:05 08/18/23 16:31 08/18/23 16:50 Temperature 97.0 F L Temperature Source Temporal Pulse Rate 72 61 Respiratory Rate 15 15 Blood Pressure 131/61 H 131/69 H Blood Pressure Mean 84 89 Pulse Ox 97 95 Oxygen Delivery Method Room Air Room Air Room Air 08/18/23 18:02 08/18/23 19:05 Temperature 98.6 F Temperature Source Oral Pulse Rate 71 69 Respiratory Rate 15 18 Blood Pressure 130/63 H 109/36 L Blood Pressure Mean 85 60 Pulse Ox 98 94 Oxygen Delivery Method Room Air Room Air Positive well nourished, well developed and no apparent distress General Appearance ED: well developed HEENT Reports normocephalic and head/scalp atraumatic Mouth ED: Yes moist mucous membranes normal Eyes PERRL and EOMs intact bilaterally Neck full ROM and supple Chest Wall inspection of chest normal Resp normal respiratory effort and clear to auscultation bilaterally Cardio regular rate and regular rhythm GI soft to palpation, non-tender, non-distended and no masses Back/Spine normal ROM and normal to inspection Extremity normal to inspection and full ROM Neuro oriented x3, CN's II-XII intact bilaterally, moves all extremities, no focal motor deficits and no sensory deficits noted Sensorium / Orientation: awake and alert Psych mental status grossly normal and thought process normal Skin no rashes or lesions noted and no wounds <Dr. Arsalan Noel DO - Last Filed: 08/18/23 21:38> Physical Exam Const Vital Signs: 08/18/23 16:05 08/18/23 16:31 08/18/23 16:50 Temperature 97.0 F L Temperature Source Temporal Pulse Rate 72 61 Respiratory Rate 15 15 Blood Pressure 131/61 H 131/69 H Blood Pressure Mean 84 89 Pulse Ox 97 95 Oxygen Delivery Method Room Air Room Air Room Air 08/18/23 18:02 08/18/23 19:05 Temperature 98.6 F Temperature Source Oral Pulse Rate 71 69 Respiratory Rate 15 18 Blood Pressure 130/63 H 109/36 L Blood Pressure Mean 85 60 Pulse Ox 98 94 Oxygen Delivery Method Room Air Room Air [facility] <LI Cerda - Last Filed: 08/18/23 21:01> [facility] Narrative Medical decision making narrative: Patient presenting due to substernal and epigastric pain that started this afternoon. She reports a cardiac history with stent placement. She reports a history of slight shortness of breath at baseline that has not worsened. Labs will be obtained to rule out ACS, leukocytosis, anemia, electrolyte abnormality. Chest x-ray obtained to rule out infiltrate and other cardiopulmonary abnormality. She has a Wells score of 0, low suspicion for PE. Initial high sensitivity troponin is 6, repeat troponin is 7. Patient has a WBC of 15.9, this is nonspecific and is elevated on previous labs. Chest x-ray negative for any acute cardiopulmonary abnormality. On reexamination patient reports that she is feeling better. I have encouraged her to follow-up with her PCP, she will be discharged home in stable condition and is comfortable with plan. Lab Data Attestation: I reviewed the patient's lab results. Lab results narrative: WBC 15.9, Labs: Laboratory Results - last 24 hr 08/18/23 08/18/23 16:30 18:44 WBC 15.9 H RBC 5.59 H Hgb 15.0 Hct 46.4 MCV 83.0 MCH 26.8 L MCHC 32.3 RDW Std Deviation 44.8 H RDW Coeff of Haleigh 14.8 H Plt Count 389 MPV 9.5 Immature Gran % (Auto) 0.800 Neut % (Auto) 73.1 H Lymph % (Auto) 16.2 L [place] % (Auto) 6.3 Eos % (Auto) 3.1 Baso % (Auto) 0.5 Absolute Neuts (auto) 11.6 H Absolute Lymphs (auto) 2.59 Nucleated RBC % 0 Sodium 137 Potassium 4.0 Chloride 107 Carbon Dioxide 28.0 Anion Gap 2 L BUN 17 Creatinine 0.82 Est GFR (MDRD) Af Amer 90 Est GFR (MDRD) Non-Af 74 BUN/Creatinine Ratio 20.8 H Glucose 119 H Calcium 9.8 Troponin I High Sens 6 7 Lipase 31 Radiography X-Ray: Read by ED Physician and Read by Radiologist Diagnostic Testing: Clinical Impression(s) from Imaging Studies Chest X-Ray 08/18/23 16:40 IMPRESSION: No acute cardiopulmonary pathology. Electronically Signed: Ismael Cespedes MD at 17:13 EST Reading Location ID and State: [facility] / [place] Tel , Service support , EKG Initial EKG: Comments: 70 bpm, normal sinus rhythm, left axis deviation, no ST elevation, reviewed and interpreted by attending ED physician <Dr. Arsalan Noel, DO - Last Filed: 08/18/23 21:38> [facility] Lab Data Labs: Laboratory Results - last 24 hr 08/18/23 08/18/23 16:30 18:44 WBC 15.9 H RBC 5.59 H Hgb 15.0 Hct 46.4 MCV 83.0 MCH 26.8 L MCHC 32.3 RDW Std Deviation 44.8 H RDW Coeff of [place] 14.8 H Plt Count 389 MPV 9.5 Immature Gran % (Auto) 0.800 Neut % (Auto) 73.1 H Lymph % (Auto) 16.2 L [place] % (Auto) 6.3 Eos % (Auto) 3.1 Baso % (Auto) 0.5 Absolute Neuts (auto) 11.6 H Absolute Lymphs (auto) 2.59 Nucleated RBC % 0 Sodium 137 Potassium 4.0 Chloride 107 Carbon Dioxide 28.0 Anion Gap 2 L BUN 17 Creatinine 0.82 Est GFR (MDRD) Af Amer 90 Est GFR (MDRD) Non-Af 74 BUN/Creatinine Ratio 20.8 H Glucose 119 H Calcium 9.8 Troponin I High Sens 6 7 Lipase 31 Radiography Diagnostic Testing: Clinical Impression(s) from Imaging Studies Chest X-Ray 08/18/23 16:40 IMPRESSION: No acute cardiopulmonary pathology. Electronically Signed: Ismael Cespedes MD at 17:13 EST Reading Location ID and State: [facility] / [place] Tel , Service support , Treatment and Re-Evaluation :: I have personally performed a face to face assessment of the patient and have reviewed the TAE Note. I performed a substantive portion of the visit including all aspects of the following. My huston findings include: History: Patient presents with chest pain that began today. Patient states pain is over the substernal area. Patient states it radiates into her neck and to her left scapular area. Patient has a history of coronary artery disease and cardiac stents. Patient admits to some palpitations. Patient admits to some nausea but denies any vomiting. Patient also admits to some shortness of breath. Exam: Vital signs are stable. Patient is afebrile. Patient is in no acute distress. Oral mucosa is pink and moist. Neck is supple. Trachea is midline. There is no JVD. Heart was regular rate and rhythm. Lungs are clear and equal bilaterally. Abdomen is soft. Bowel sounds are normal. There is no tenderness. Cranial nerves II through XII are intact. There are no focal motor or sensory deficits noted. Medical Decision Making: Differential diagnosis includes cardiac dysrhythmia, cardiac ischemia, pneumonia, pneumothorax, electrolyte abnormality, pancreatitis, musculoskeletal pain, and anxiety. EKG will be obtained to assess for cardiac dysrhythmia and cardiac ischemia. Chest x-ray will be obtained to assess for pneumonia and pneumothorax. CBC will be obtained to assess for leukocytosis and anemia. Basic metabolic profile will be obtained to assess for electrolyte abnormality and renal function. High-sensitivity troponin will be obtained to assess for cardiac ischemia. 2-hour repeat high-sensitivity troponin will be obtained to assess for ongoing cardiac ischemia. Lipase will be obtained to assess for pancreatitis. Portable 1 view chest x-ray was obtained. On my independent interpretation, lung liang are clear. There is normal cardiac silhouette. Bony thorax is normal. There is no acute process noted. Radiologist also interpreted the x-ray and agrees. EKG was obtained. On my independent interpretation, it showed a normal sinus rhythm with a rate of 70. NE interval, QRS interval, and QTc intervals were all normal. There is left axis deviation at -30. There are no acute ST or T wave changes. CBC was reviewed. There is a mild leukocytosis of 15.9. The remainder was within normal limits. Basic metabolic profile was reviewed. Glucose was slightly elevated at 119. The remainder is within normal limits. High-sensitivity troponin was reviewed and was normal at 6. Lipase was reviewed and was normal at 31. 2-hour repeat high-sensitivity troponin was reviewed and was normal at 7. Patient was advised of her findings. Patient has a HEART score of 4. Patient was instructed to follow-up with her primary care physician in 5 to 7 days. Patient was instructed return if worse in any way. Patient understood and was agreeable with the plan. All questions were answered. Discharge Plan Triage Chief Complaint: Chest Pain ED Midlevel Provider: Terra Chi ED Provider: Arsalan Noel Dx/Rx/DC Orders Clinical Impression: CAD (coronary artery disease), Chest pain Instructions: ED Chest Pain, Uncertain Cause Prescriptions: No Action sertraline 50 mg tablet 50 mg PO DAILY insulin degludec [Tresiba FlexTouch U-200] 200 unit/mL (3 mL) insulin pen 120 unit subcut QHS Jardiance 25 mg tablet 25 mg PO DAILY cholecalciferol (vitamin D3) 125 mcg (5,000 unit) capsule 250 mcg PO DAILY nitroglycerin 0.4 mg tablet, sublingual 0.4 mg sublingual Q5M PRN (Reason: chest pain) Qty: 14 6RF Rx Instructions: do not exceed 3 doses per episode lisinopril 2.5 mg tablet 2.5 mg PO DAILY amlodipine 5 mg tablet 5 mg PO DAILY Qty: 90 3RF atorvastatin 40 mg tablet 40 mg PO QHS Qty: 90 3RF clopidogrel 75 mg tablet 75 mg PO DAILY Qty: 90 1RF insulin aspart U-100 [Novolog FlexPen U-100 Insulin] 100 unit/mL (3 mL) insulin pen 30 - 70 unit subcut TIDCM Patient Comments: TAKE DIRECTED BEFORE MEAL(S) 140-169 30 UNITS, 170-200 40 UNITS, 201-250 50 UNITS, 251- 300 70 UNITS. MAX DAILY DOSE IS 180 UNITS Rx Instructions: 30 to 70 units per meal (see pt comments). aspirin [Adult Aspirin Regimen] 81 mg tablet,delayed release (DR/EC) 81 mg PO DAILY carvedilol 12.5 mg tablet 12.5 mg PO BID Qty: 180 3RF Rx Instructions: must administer with a meal/food Praluent Pen 150 mg/mL pen injector 150 mg subcut MONTHLY Qty: 2 6RF Primary Care Provider: Aida Nolan Referrals: Aida Nolan DO [Primary Care Provider] - 5-7 Days Activity Restrictions/Additional Instructions: Follow-up with your PCP, return for any worsening of your symptoms. Disposition Disposition: Home, Self Care Discharge Date/Time: 08/18/23 19:55
[2023-08-18 16:50] VITALS: BP 131/69; PULSE 61; RESP 15; O2SAT 95
[2023-08-18 17:14] LABS: Anion Gap 2 (5-15); BUN 17 mg/dL (7-18); BUN/Creat Ratio 20.8 RATIO (10-20); Calcium,Total 9.8 mg/dL (8.5-10.1); Chloride 107 mmol/L (98-107); Creatinine, Serum 0.82 mg/dL (0.55-1.02); EST Glomerular Filtration Rate 74 mL/min (>60); Est Glom Filt Rate - Afr Amer 90 mL/min (>60); Glucose 119 mg/dL (74-106); Lipase 31 U/L (13-75); Sodium Level 137 mmol/L (136-145); Troponin-I HS (w/2H Reflex) 6 pg/mL (3.0-54.0)
[2023-08-18 18:02] VITALS: BP 130/63; PULSE 71; RESP 15; O2SAT 98
--- NOTE | 2023-08-18 18:03 | ED.RN ---
PT WAS GIVEN BP, CRACKERS AND SPRITE FOR A BGL OF 62
[2023-08-18 18:37] LABS: Reflex Troponin-HS? (from REC) Y
[2023-08-18 19:05] VITALS: BP 109/36; PULSE 69; RESP 18; TEMP 37; O2SAT 94
[2023-08-18 19:19] LABS: Troponin-I HS 7 pg/mL (3.0-54.0)
== END 2023-08-18 19:55 | disposition home or self-care (01) ==
PROVIDERS: Physician Assistant; Emergency Provider Emergency Medicine; PCP Internal Medicine; Visit Provider Emergency Medicine
DX: R07.9 Chest pain, unspecified (principal); E11.51 Type 2 diabetes mellitus with diabetic peripheral angiopathy without gangrene; L40.50 Arthropathic psoriasis, unspecified; Z79.4 Long term (current) use of insulin; I25.10 Atherosclerotic heart disease of native coronary artery without angina pectoris; I10 Essential (primary) hypertension; E78.5 Hyperlipidemia, unspecified; F32.A Depression, unspecified; E66.9 Obesity, unspecified; E55.9 Vitamin D deficiency, unspecified; Z79.899 Other long term (current) drug therapy; Z95.5 Presence of coronary angioplasty implant and graft; Z87.891 Personal history of nicotine dependence
CPT/HCPCS: 36415; 71045; 80048; 83690; 84484; 85025; 93005; 99284; A4216

== ENCOUNTER → 2023-09-27 | Outpatient (CLI) | payer MEDICARE, SELFPAY ==
[2023-09-27 14:06] LABS: AST(SGOT) 16 U/L (15-37); Alanine Aminotransfer ALT/SGPT 27 U/L (13-56); Albumin, Serum 3.6 g/dL (3.2-5.0); Alkaline Phosphatase 134 U/L (45-117); Bilirubin, Direct 0.11 mg/dL (0.00-0.30); Cholesterol 128 mg/dL (200); Globulin 3.8 g/dL (2.2-4.2); High Density Lipoprotein 36 mg/dL; Protein, Total 7.4 g/dL (6.4-8.2); Triglycerides 147 mg/dL; Very Low Density Lipoprotein 29 mg/dL (5-40)
== END | disposition home or self-care (01) ==
LOC: LAB 13:09
PROVIDERS: PCP Internal Medicine; Referring Provider Internal Medicine Cardiovascular Disease; Visit Provider Internal Medicine Cardiovascular Disease
DX: E78.5 Hyperlipidemia, unspecified (principal); I25.10 Atherosclerotic heart disease of native coronary artery without angina pectoris
CPT/HCPCS: 36415; 80061; 80076

== ENCOUNTER → 2023-10-23 | Outpatient (CLI) | payer MEDICARE, SELFPAY ==
[2023-10-23 10:42] LABS: Absolute Neutrophil Count 8.8 X10^3/uL (2.0-7.7); Basophil# 0.08 X10^3/uL; Basophil% 0.6 % (0-1); Eosinophil# 0.59 X10^3/uL; Eosinophils% 4.7 % (0-5); Hematocrit 45.9 % (37-47); Hemoglobin 14.6 g/dL (12.0-15.0); Lymphocyte % 18.1 % (19-41); Mean Corp Hgb Conc 31.8 g/dL (32-36); Mean Corpuscular Hgb 26.7 pg (27.0-32.0); Mean Corpuscular Volume 84.1 fL (81-99); Mean Platelet Vol. 9.6 fl (6.2-12.0); Monocyte# 0.75 X10^3/uL; Monocyte% 5.9 % (0-10); NRBC Flagged by Analyzer 0 % (0-5); Neutrophil # 8.84 X10^3/uL (2.7-7.7); Neutrophil % 69.8 % (47-70); Platelet Count 385 K/mm3 (150-450); RBC Distribution Width CV 14.7 % (11.6-14.6); RBC Distribution Width SD 44.9 fl (35.1-43.9); Red Blood Count 5.46 M/mm3 (4.2-5.4); White Blood Count 12.7 K/mm3 (4.4-11.0)
[2023-10-23 11:12] LABS: ALB/GLOB Ratio 0.9 RATIO (0.9-2.4); AST(SGOT) 14 U/L (15-37); Alanine Aminotransfer ALT/SGPT 26 U/L (13-56); Albumin, Serum 3.5 g/dL (3.2-5.0); Alkaline Phosphatase 148 U/L (45-117); Anion Gap 9 (5-15); BUN 15 mg/dL (7-18); BUN/Creat Ratio 18.9 RATIO (10-20); Calcium,Total 8.8 mg/dL (8.5-10.1); Chloride 108 mmol/L (98-107); EST Glomerular Filtration Rate 77 mL/min (>60); Est Glom Filt Rate - Afr Amer 93 mL/min (>60); Globulin 3.8 g/dL (2.2-4.2); Glucose 90 mg/dL (74-106); Magnesium 2.2 mg/dL (1.6-2.6); Potassium 4.1 mmol/L (3.5-5.1); Protein, Total 7.3 g/dL (6.4-8.2); Sodium Level 143 mmol/L (136-145); Thyroid Stim Hormone (TSH) 2.23 uIU/mL (0.358-3.74)
== END | disposition home or self-care (01) ==
LOC: LAB 10:17
PROVIDERS: PCP Internal Medicine; Referring Provider Nurse Practitioner Gerontology; Visit Provider Nurse Practitioner Gerontology
DX: I47.10 Supraventricular tachycardia, unspecified (principal); R00.2 Palpitations; R00.0 Tachycardia, unspecified; R06.02 Shortness of breath; R53.83 Other fatigue; I25.10 Atherosclerotic heart disease of native coronary artery without angina pectoris
CPT/HCPCS: 36415; 80053; 83735; 84443; 85025

== ENCOUNTER → 2023-10-30 | Outpatient (CLI) | payer MEDICARE, SELFPAY | END | disposition home or self-care (01) | PROVIDERS: PCP Internal Medicine; Referring Provider Nurse Practitioner Gerontology; Visit Provider Nurse Practitioner Gerontology | DX: R00.0 Tachycardia, unspecified (principal); R00.2 Palpitations; I47.10 Supraventricular tachycardia, unspecified | CPT/HCPCS: 93225; 93226 ==

== ENCOUNTER → 2024-02-15 | Outpatient (CLI) | payer MEDICARE, SELFPAY ==
[2024-02-15 15:47] LABS: Absolute Lymphocyte Count 2.38 X10^3/uL (0.83-4.51); Absolute Neutrophil Count 9.3 X10^3/uL (2.0-7.7); Basophil# 0.08 X10^3/uL; Basophil% 0.6 % (0-1); Eosinophil# 0.47 X10^3/uL; Eosinophils% 3.6 % (0-5); Hematocrit 45.6 % (37-47); Hemoglobin 14.1 g/dL (12.0-15.0); Lymphocyte # 2.38 X10^3/ul (0.83-4.51); Lymphocyte % 18.2 % (19-41); Mean Corp Hgb Conc 30.9 g/dL (32-36); Mean Corpuscular Hgb 26.6 pg (27.0-32.0); Monocyte# 0.81 X10^3/uL; Monocyte% 6.2 % (0-10); NRBC Flagged by Analyzer 0 % (0-5); Neutrophil # 9.26 X10^3/uL (2.7-7.7); Neutrophil % 70.8 % (47-70); Platelet Count 405 K/mm3 (150-450); RBC Distribution Width CV 14.6 % (11.6-14.6); RBC Distribution Width SD 45.7 fl (35.1-43.9); White Blood Count 13.1 K/mm3 (4.4-11.0)
[2024-02-15 16:22] LABS: AST(SGOT) 13 U/L (15-37); Alanine Aminotransfer ALT/SGPT 22 U/L (13-56); Albumin, Serum 3.7 g/dL (3.2-5.0); Alkaline Phosphatase 146 U/L (45-117); Anion Gap 5 (5-15); BUN 21 mg/dL (7-18); BUN/Creat Ratio 22.1 RATIO (10-20); Calcium,Total 9.4 mg/dL (8.5-10.1); Chloride 105 mmol/L (98-107); Creatinine, Serum 0.95 mg/dL (0.55-1.02); EST Glomerular Filtration Rate 62 mL/min (>60); Est Glom Filt Rate - Afr Amer 76 mL/min (>60); Globulin 3.6 g/dL (2.2-4.2); Glucose 174 mg/dL (74-106); Potassium 4.3 mmol/L (3.5-5.1); Protein, Total 7.3 g/dL (6.4-8.2); Sodium Level 140 mmol/L (136-145); Troponin-I HS 3 pg/mL (3.0-54.0)
== END | disposition home or self-care (01) ==
LOC: LAB 14:06
PROVIDERS: PCP Student in an Organized Health Care Education/Training Program; Referring Provider Nurse Practitioner Family; Visit Provider Nurse Practitioner Family
DX: R06.02 Shortness of breath (principal); R07.9 Chest pain, unspecified; Z95.5 Presence of coronary angioplasty implant and graft
CPT/HCPCS: 36415; 80053; 84484; 85025

== ENCOUNTER → 2024-05-26 | Outpatient (CLI) | payer MEDICARE, SELFPAY ==
[2024-05-26 12:53] LABS: Anion Gap 4 (5-15); BUN 17 mg/dL (7-18); BUN/Creat Ratio 20.8 RATIO (10-20); Calcium,Total 9.3 mg/dL (8.5-10.1); Chloride 106 mmol/L (98-107); Creatinine, Serum 0.82 mg/dL (0.55-1.02); EST Glomerular Filtration Rate 74 mL/min (>60); Est Glom Filt Rate - Afr Amer 90 mL/min (>60); Glucose 93 mg/dL (74-106); Potassium 4.3 mmol/L (3.5-5.1); Sodium Level 138 mmol/L (136-145)
[2024-05-26 13:07] LABS: AST(SGOT) 11 U/L (15-37); Alanine Aminotransfer ALT/SGPT 20 U/L (13-56); Albumin, Serum 3.4 g/dL (3.2-5.0); Alkaline Phosphatase 151 U/L (45-117); Bilirubin, Direct 0.17 mg/dL (0.00-0.30); Cholesterol 107 mg/dL (200); Globulin 3.5 g/dL (2.2-4.2); High Density Lipoprotein 39 mg/dL; Protein, Total 6.9 g/dL (6.4-8.2); Triglycerides 101 mg/dL; Very Low Density Lipoprotein 20 mg/dL (5-40)
[2024-05-26 13:07] LABS: Hemoglobin A1c 6.9 % (3.8-5.6)
== END | disposition home or self-care (01) ==
LOC: LAB 10:58
PROVIDERS: PCP Student in an Organized Health Care Education/Training Program; Referring Provider Internal Medicine Cardiovascular Disease; Visit Provider Nurse Practitioner Family
DX: R06.02 Shortness of breath (principal); E11.69 Type 2 diabetes mellitus with other specified complication; R07.9 Chest pain, unspecified; Z98.61 Coronary angioplasty status; Z95.5 Presence of coronary angioplasty implant and graft; I25.10 Atherosclerotic heart disease of native coronary artery without angina pectoris
CPT/HCPCS: 36415; 80048; 80061; 80076; 83036; 83880

== ENCOUNTER → 2024-05-30 | Outpatient (CLI) | payer MEDICARE, SELFPAY ==
[2024-05-30 14:27] LABS: ALB/GLOB Ratio 0.9 RATIO (0.9-2.4); AST(SGOT) 13 U/L (15-37); Alanine Aminotransfer ALT/SGPT 23 U/L (13-56); Albumin, Serum 3.4 g/dL (3.2-5.0); Alkaline Phosphatase 143 U/L (45-117); Anion Gap 5 (5-15); BUN 23 mg/dL (7-18); BUN/Creat Ratio 24.4 RATIO (10-20); Calcium,Total 9.4 mg/dL (8.5-10.1); Chloride 106 mmol/L (98-107); Creatinine, Serum 0.94 mg/dL (0.55-1.02); EST Glomerular Filtration Rate 63 mL/min (>60); Est Glom Filt Rate - Afr Amer 76 mL/min (>60); Globulin 3.6 g/dL (2.2-4.2); Glucose 153 mg/dL (74-106); Potassium 4.4 mmol/L (3.5-5.1); Sodium Level 138 mmol/L (136-145)
== END | disposition home or self-care (01) ==
PROVIDERS: PCP Student in an Organized Health Care Education/Training Program; Referring Provider Internal Medicine Cardiovascular Disease; Visit Provider Internal Medicine Cardiovascular Disease
DX: I25.10 Atherosclerotic heart disease of native coronary artery without angina pectoris (principal); E78.5 Hyperlipidemia, unspecified; I10 Essential (primary) hypertension; R00.2 Palpitations; R06.02 Shortness of breath
CPT/HCPCS: 36415; 80053

== ENCOUNTER → 2024-12-26 | Outpatient (CLI) | payer MEDICARE, SELFPAY ==
--- NOTE | 2024-12-26 07:33 | ECHOCS_ITS ---
Reason For Study Reason For Study: DYSPNEA/SOB Procedure This was a 2D Doppler, Color Flow transthoracic echocardiogram. The study was technically difficult. Due to body habitus. Contrast injection was performed. Exam performed in department. Left Ventricle Normal size and thickness. The LV systolic function is normal. EF is 65 %. Diastolic function is indeterminate. Right Ventricle Normal right ventricle. Atria The left and right atria are normal. Mitral Valve Mild (1+) eccentric mitral valve insufficiency. Tricuspid Valve Normal tricuspid valve. Aortic Valve Trisinus/trileaflet aortic valve. Pulmonic Valve Trivial pulmonic valve insufficiency. Great Vessels Normal sized aortic root. Pericardium/Pleural No pericardial effusion. Medication Diluted definity 3.0ml given slow IV push to enhance endocardial definition. MMode/2D Measurements & Calculations LVIDd: 4.8 cm IVSd: 1.0 cm Ao root diam: 2.5 cm LVIDs: 3.1 cm LVPWd: 1.0 cm RVDd: 3.0 cm FS: 35.1 % LAV(MOD-bp): 63.2 ml LVAd ap4: 27.3 cm2 LVAd ap2: 19.8 cm2 LAV(MOD-bp) Indexed: 33.3 ml/m2 LVLd ap4: 7.1 cm LVLd ap2: 7.0 cm LAV(MOD-sp2): 60.7 ml EDV(MOD-sp4): 85.9 ml EDV(MOD-sp2): 47.3 ml LAV(MOD-sp4): 60.7 ml EDV(sp4-el): 88.3 ml EDV(sp2-el): 47.2 ml LVAs ap4: 16.4 cm2 LVAs ap2: 11.4 cm2 LVLs ap4: 5.4 cm LVLs ap2: 5.4 cm ESV(MOD-sp4): 41.2 ml ESV(MOD-sp2): 19.8 ml ESV(sp4-el): 42.1 ml ESV(sp2-el): 20.4 ml EF(MOD-sp4): 52.1 % EF(MOD-sp2): 58.2 % EF(sp4-el): 52.3 % SV(MOD-sp4): 44.8 ml SV(MOD-sp2): 27.5 ml SV(sp4-el): 46.2 ml SI(MOD-sp4): 23.6 ml/m2 SI(MOD-sp2): 14.5 ml/m2 LA A4 area: 19.9 cm2 LA dimension(2D): 4.0 cm RA A4 area: 18.3 cm2 TAPSE: 2.0 cm Time Measurements MV dec time: 0.18 sec Doppler Measurements & Calculations MV E max jorge: 93.5 cm/sec Lat Peak E' Jorge: 5.0 cm/sec Med Peak E' Jorge: 8.5 cm/sec MV A max jorge: 99.5 cm/sec E/E' lat: 18.8 E/E' med: 11.0 MV E/A: 0.94 MV V2 max: 100.4 cm/sec MV P1/2t max jorge: 101.9 cm/sec Ao V2 max: 138.5 cm/sec MV max P.0 mmHg MV P1/2t: 77.1 msec Ao max P.7 mmHg MV V2 mean: 59.7 cm/sec MV dec slope: 387.3 cm/sec2 Ao V2 mean: 92.8 cm/sec MV mean P.6 mmHg MVA(P1/2t): 2.9 cm2 Ao mean P.8 mmHg MV V2 VTI: 31.2 cm Ao V2 VTI: 33.6 cm AV (velocity ratio): 0.84 LV V1 max: 107.6 cm/sec PA V2 max: 115.1 cm/sec LV V1 max P.6 mmHg PA V2 mean: 76.9 cm/sec LV V1 mean P.4 mmHg LV V1 mean: 73.4 cm/sec LV V1 VTI: 28.4 cm ECHO/Echo Complete W/ Contrast Interpretation Summary The LV systolic function is normal. EF is 65 %. Diastolic function is indeterminate. Mild (1+) eccentric mitral valve insufficiency. Ordering Physician: Nitin Phelan Referring Physician: OTD Performed By: Veda Berger RDCS, RVT
--- NOTE | 2024-12-26 07:33 | CDU_ITS ---
Reason For Study Reason For Study: DIZZINESS Rt. Velocities/BP Lt. Velocities/BP Prox CCA 69.5/12.8 cm/sec. Prox CCA 78.5/13.4 cm/sec. Mid CCA 55.4/10.0 cm/sec. Mid CCA 83.4/20.8 cm/sec. Dist CCA 73.3/15.7 cm/sec. Dist CCA 74.8/19.3 cm/sec. Prox ICA 95.2/22.6 cm/sec. Prox ICA 213.0/41.7 cm/sec. Mid ICA 99.6/22.6 cm/sec. Mid ICA 248.6/38.5 cm/sec. Dist ICA 84.2/21.5 cm/sec. Dist ICA 92.0/25.7 cm/sec. Rt. ICA/CCA = 99.6/55.4=1.8. Lt. ICA/CCA = 248.6/83.4=3.0. Prox ECA 152.7/4.7 cm/sec. Prox ECA 392.4/43.7 cm/sec. Rt. Vert. 15.7/4.4 cm/sec. Lt. Vert. 55.1/18.3 cm/sec. Right Extracranial There is intimal thickening but no significant atherosclerotic plaque noted in the right common carotid artery. There is homogeneous, irregular atherosclerotic plaque noted in the right internal carotid artery. There is homogeneous, smooth atherosclerotic plaque noted in the right external carotid artery. Antegrade flow is noted in the right vertebral artery. Left Extracranial There is heterogeneous, irregular atherosclerotic plaque noted in the left common carotid artery. There is heterogeneous, irregular atherosclerotic plaque noted in the left internal carotid artery. There is homogeneous, smooth atherosclerotic plaque noted in the left external carotid artery. Antegrade flow is noted in the left vertebral artery. Procedure Carotid Duplex 20449. This is a Carotid Duplex examination using B-mode, color flow and specral Doppler. Exam performed in department. VL/Carotid Duplex Ultrasound Interpretation Summary Mild (<50%) stenosis right extracranial internal carotid. Severe (>70%) stenosis left extracranial internal carotid. Patent and antegrade vertebrals bilaterally. Ordering Physician: Nitin Phelan Referring Physician: OTD Performed By: Veda Berger RDCS, RVT
--- NOTE | 2024-12-26 10:14 | STRESSREP_ITS ---
Stress Test Report Date: 12/26/2024 Procedure: Pharmacologic stress nuclear imaging study Indications: Chest pain Consent: Per the patient Procedure: The patient underwent pharmacologic (Regadenoson 0.4mg ) evaluation with a peak heart rate of 86 beats per minute (56%predicted maximal heart rate) and a peak blood pressure of 146/60 mmHg. The baseline ECG demonstrated sinus rhythm. The peak pharmacologic ECG did not show any ischemic changes. There were no cardiac dysrhythmias pretest, during pharmacologic infusion, or recovery. There was no complaint of chest discomfort during pharmacologic infusion or recovery. The patient was injected with 14.4 millicuries of technetium 99m Cardiolite and subsequently rest SPECT Cardiolite nuclear imaging was obtained in the horizontal long, vertical long, and short axis views. The patient underwent pharmacologic (Regadenoson) evaluation. The patient was injected with 44.3 millicuries of technetium 99m Cardiolite and subsequently stress SPECT Cardiolite nuclear imaging was obtained in the horizontal long, vertical long, and short axis views. A gated Cardiolite study at peak stress was obtained. The examination was stopped secondary to completion of protocol. Rest and stress SPECT Cardiolite nuclear imaging status post realignment, normalization, and attenuation correction demonstrate no fixed or reversible perfusion defects. There is end systolic thickening and brightening. The gated Cardiolite study demonstrates myocardial thickening and inward wall motion. The reported LVEF is 74%. Impression: 1. Pharmacologic (Regadenoson) evaluation 2. Peak pharmacologic ECG with no ischemic changes. 3. There were no cardiac dysrhythmias pretest, during pharmacologic infusion, o r recovery. 5. Rest and stress SPECT Cardiolite nuclear imaging demonstrate relative uniform tracer uptake and myocardial perfusion appearing within normal limits. 6. The gated Cardiolite study reports an LVEF of 74%. This note was generated with [employer] software. It may contain incorrect words, spelling, and punctuation that were not noted in checking the note before signing.
== END | disposition home or self-care (01) ==
LOC: CVS 06:08
PROVIDERS: Referring Provider Internal Medicine Cardiovascular Disease; Visit Provider Internal Medicine Cardiovascular Disease
DX: R06.02 Shortness of breath (principal); R42 Dizziness and giddiness; R53.83 Other fatigue
CPT/HCPCS: 78452; 93017; 93306; 93880; A9500; Q9957; A4216; C8929; J2785

== ENCOUNTER → 2025-01-27 | Outpatient (CLI) | payer MEDICARE, SELFPAY ==
[2025-01-27 14:34] LABS: Anion Gap 11 (5-15); BUN 19 mg/dL (4-19); BUN/Creat Ratio 19.1 RATIO (10-20); Calcium,Total 9.2 mg/dL (7.6-11.0); Carbon Dioxide 25.5 mmol/L (21.0-32.0); Chloride 104 mmol/L (98-108); Creatinine, Serum 0.99 mg/dL (0.70-1.20); EST Glomerular Filtration Rate 63 (>60); Glucose 154 mg/dL (70-99); Potassium 4.4 mmol/L (3.3-5.1); Sodium Level 140 mmol/L (133-145)
== END | disposition home or self-care (01) ==
LOC: LAB 13:15
PROVIDERS: PCP Student in an Organized Health Care Education/Training Program; Referring Provider Internal Medicine Cardiovascular Disease; Visit Provider Internal Medicine Cardiovascular Disease
DX: I10 Essential (primary) hypertension (principal)
CPT/HCPCS: 36415; 80048

== ENCOUNTER → 2025-02-11 | Outpatient (CLI) | payer MEDICARE, SELFPAY ==
--- NOTE | 2025-02-11 14:16 | CT_ITS ---
PROCEDURE: CTA HEAD AND NECK W/ CONTRAST 02/11/2025 REASON FOR EXAM: SEVERE L ICA STENOSIS >70% BY DUPLEX TECHNIQUE: CTA imaging of the head and neck from the aortic arch to the skull vertex with out contrast and with intravenous contrast. Multiplanar and multisequence images were obtained. CONTRAST: Isovue 370 VOLUME: 100 mL One or more dose reduction techniques were used (e.g., Automated exposure control, adjustment of the mA and/or kV according to patient size, use of iterative reconstruction technique). RADIATION DOSE SUMMARY: CTDlvol: 24.7 mGy DLP: 1581 mGycm COMPARISON: 12/29/2024. FINDINGS: Normal bilateral petrous carotid arteries. Calcified atheromatous plaques with mild multifocal stenosis of the right cavernous carotid artery with a normal supraclinoid bifurcation. Calcified atheromatous plaques with mild multifocal stenosis of the left cavernous carotid artery with a normal supraclinoid bifurcation. Normal right A1 segments of the anterior cerebral artery. Normal left A1 segments of the anterior cerebral artery. Normal intact anterior communicating artery (ACOM). Normal bilateral A2 segments of the anterior cerebral arteries. Normal right M1 and M2 segments of the middle cerebral arteries, with a normal M1 bifurcation. Normal left M1 and M2 segments of the middle cerebral arteries, with a normal M1 bifurcation. Normal right posterior communicating artery (PCOM). Normal left posterior communicating artery (PCOM). Normal bilateral vertebral arteries. Normal basilar artery with a normal basilar bifurcation. The visualized bilateral superior cerebellar (SCA) arteries are normal. Normal bilateral P1, P2 and visualized P3 segments of the posterior cerebral arteries. There is no demonstrated aneurysm of the [place] of [place]. There is no major vessel occlusion or hemodynamically significant stenosis. There is no demonstrated acute abnormality of the visualized brain. RIGHT CAROTID ARTERIES: Normal right common carotid artery (CCA). 50% stenosis of the right common carotid bulb. 50% stenosis of the origin of the right internal carotid (ICA) artery without a hemodynamically significant stenosis. Normal visualized cervical portion of the right internal carotid artery. Normal origin of the right external carotid artery (ECA). LEFT CAROTID ARTERIES: Normal left common carotid artery (CCA). 50% stenosis of the left common carotid bulb. 50% stenosis of the origin of the left internal carotid (ICA) artery without a hemodynamically significant stenosis. Normal visualized cervical portion of the left internal carotid artery. Normal origin of the left external carotid artery (ECA). VERTEBRAL ARTERIES: Normal bilateral vertebral artery without a hemodynamically significant stenosis. CT/CTA Head AND Neck W/ Contrast IMPRESSION: Atherosclerosis. Mild multifocal stenosis. Reading Location[facility]
== END | disposition home or self-care (01) ==
LOC: CT 14:15
PROVIDERS: PCP Student in an Organized Health Care Education/Training Program; Referring Provider Physician Assistant; Visit Provider Physician Assistant
DX: I65.23 Occlusion and stenosis of bilateral carotid arteries (principal)
CPT/HCPCS: 70496; 70498; Q9967